=== PATIENT | male | born 1940 | race African-American/Black ===

== ENCOUNTER 2016-03-30 12:25 | Observation (INO) | payer OTHER ==
[2016-03-30 12:49] VITALS: BMI 24.4
[2016-03-30] MEDS ORDERED: ASPIRIN 81 MG CHEWABLE TABLETS PO ONE (12:53)
--- NOTE | 2016-03-30 12:54 | PDOC ---
History of Present Illness <Jazmin Arroyo - Last Filed: 03/30/16 14:48> - General History Source: Patient Exam Limitations: Dementia <Albino Kong - Last Filed: 03/30/16 16:56> - General Chief Complaint: Chest Pain Stated Complaint: CHEST PAIN Time Seen by Provider: 03/30/16 12:33 - History of Present Illness Initial Comments: 03/30/16 13:18 75y M hx of dementia, chf, dm, htn, hl, angina, presents with chets pain. The patient states that for the past several days, he has bfeen having CP upon awakening, described as sharp and burning, pt states he gets a med under his tongue and it typially improves. The pt denies any n/v, diahperssis, exertional worsening of his symptoms, sob, valentin, leg swelling. (LuannAlbino) Past History <Jazmin Arroyo - Last Filed: 03/30/16 14:48> - Past Medical History Anemia: No Asthma: No Cancer: No Cardiac Disorders: Yes (angina, PE) COPD: No CHF: Yes Dementia: Yes (per record harm to self or others) Diabetes: Yes GI Disorders: No Disorders: Yes (BPH) HTN: Yes Hypercholesterolemia: Yes Liver Disease: No Seizures: No Thyroid Disease: No - Surgical History Abdominal Surgery: Yes Cardiac Surgery: Yes (PPM) Lung Surgery: No Neurologic Surgery: No - Psycho/Social/Smoking Cessation Hx Anxiety: No Suicidal Ideation: No Smoking History: Former smoker Have you smoked in the past 12 months: No Information on smoking cessation initiated: No Hx Alcohol Use: No Drug/Substance Use Hx: No Substance Use Type: None Hx Substance Use Treatment: No <Albino Kong - Last Filed: 03/30/16 16:56> - Past Medical History Allergies/Adverse Reactions: Allergies Allergy/AdvReac Type Severity Reaction Status Date / Time acetaminophen Allergy Verified 02/24/16 03:45 oxycodone Allergy Verified 02/24/16 03:45 Lxilidz-Swu-Zhp Reductase Allergy Verified 02/24/16 03:45 Inhibitor Home Medications: Ambulatory Orders Apixaban [Eliquis -] 2.5 mg PO BID 12/09/15 Nitroglycerin 0.4 mg SL PRN 12/09/15 Ranolazine [Ranexa] 500 mg PO BID 12/09/15 Tamsulosin HCl 0.4 mg PO HS 12/09/15 Timolol 0.5% [Timoptic 0.5%] 1 drop OU BID 12/10/15 Atropine 1% Ophth. Solution - 1 drop OD HS ml 12/31/15 Clopidogrel Bisulfate [Plavix -] 75 mg PO DAILY tablet 12/31/15 Donepezil HCl [Aricept -] 5 mg PO HS tablet 12/31/15 Isosorbide Mononitrate [Imdur -] 30 mg PO DAILY #30 tab.sr.24h 12/31/15 Memantine HCl [Namenda -] 10 mg PO HS tablet 12/31/15 Metoprolol Succinate [Toprol XL -] 50 mg PO DAILY tab.sr.24h 12/31/15 Amlodipine Besylate [Norvasc -] 10 mg PO DAILY 02/24/16 Clonazepam [Klonopin -] 0.5 mg PO BID 02/24/16 Gabapentin [Neurontin] 300 mg PO BID 02/24/16 Cardiac Specific PMH - Complaint Specific PMHX Pacemaker: Yes <Albino Kong - Last Filed: 03/30/16 16:56> Review of Systems <Jazmin Arroyo - Last Filed: 03/30/16 14:48> - Review of Systems Able to Perform ROS?: Yes <Albino Kong - Last Filed: 03/30/16 16:56> - Review of Systems Comments:: 03/30/16 13:22 Constitutional - no reported Fever, Chills, weakness, HEENT: no reported vision changes, sore throat Respiratory: no reported cough, sob, hemoptysis Cardiac: +chest pain no reported , palpitations, light headedness, leg swelling Abd/GI: no reported abd pain, nausea, vomiting, blood per rectum, melena, diarrhea : no reported dysuria, frequency, discharge Musculskelatal - no reported back pain, joint swelling skin - no reported bruising, erythema, rash neurological: no reported headache, numbness, focal weakness, tingling, ataxia, weakness hematologic: no reported anemia, easy bruising, easy bleeding (Albino Kong) *Physical Exam <Jazmin Arroyo - Last Filed: 03/30/16 14:48> <Albino Kong - Last Filed: 03/30/16 16:56> - Vital Signs Last Vital Signs Temp Pulse Resp BP Pulse Ox 98.1 F 60 18 119/64 100 03/30/16 12:25 03/30/16 12:25 03/30/16 12:25 03/30/16 12:25 03/30/16 12:25 - Physical Exam Comments: 03/30/16 13:23 GENERAL: The patient is awake, alert, oriented x 1, Nontoxic - in no acute distress. HEAD: Normocephalic, atraumatic. EYES: extraocular movements intact, sclera anicteric, conjunctiva clear. ENT: Normal voice, Moist mucous membranes. NECK: Normal range of motion, supple LUNGS: Breath sounds equal, clear to auscultation bilaterally. No wheezes, no rhonchi, no rales. HEART: PM in the left chest, Regular rate and rhythm, normal S1 and S2 without murmur, rub or gallop. ABDOMEN: Soft, nontender, normoactive bowel sounds. No guarding, no rebound. EXTREMITIES: Normal range of motion, no edema. No clubbing or cyanosis. No cords, erythema, or tenderness. NEUROLOGICAL: No facial assymetry, Normal speech, PSYCH: Normal mood, normal affect. SKIN: Warm, Dry, normal turgor, (Albino Kong) Heart Score/ECG Review <Jazmin Arroyo - Last Filed: 03/30/16 14:48> <Albino Kong - Last Filed: 03/30/16 16:56> - ECG Impressions Comment:: 03/30/16 13:26 Twelve-lead EKG was performed and reviewed by me. There is normal sinus rhythm with a normal rate. atrial paced rhthm prolonged av conduction Left axis devation nonspecific intraventricular block no significant changes when compared w ek gdated 02/24/16 (Albino Kong) ED Treatment Course - LABORATORY CBC & Chemistry Diagram: 03/30/16 13:00 03/30/16 13:00 <Jazmin Arroyo - Last Filed: 03/30/16 14:48> - LABORATORY CBC & Chemistry Diagram: 03/30/16 13:00 03/30/16 13:00 <Albino Kong - Last Filed: 03/30/16 16:56> - ADDITIONAL ORDERS Additional order review: Laboratory Results 03/30/16 03/30/16 13:00 13:00 INR 1.37 H Sodium 140 Potassium 4.4 Chloride 105 Carbon Dioxide 28 Anion Gap 7 L BUN 19 H Creatinine 1.6 H Creat Clearance w eGFR 42.46 Random Glucose 132 H Calcium 8.9 Magnesium 2.2 Total Bilirubin 0.5 D AST 23 D ALT 18 Alkaline Phosphatase 69 Creatine Kinase 105 Troponin I 0.02 Total Protein 6.5 Albumin 3.4 03/30/16 13:00 RBC 4.58 MCV 90.4 MCHC 33.6 RDW 14.7 MPV 9.7 Neutrophils % 57.8 Lymphocytes % 22.2 Monocytes % 16.6 H Eosinophils % 2.7 Basophils % 0.7 - RADIOLOGY Radiology Studies Ordered: Category Date Time Status CHEST X-RAY PORTABLE* [RAD] Stat Radiology 03/30/16 12:53 Completed 03/30/16 14:48 No evidence pneumonia, CHF, pleural effusion, or pneumothorax. (Jazmin Arroyo) - Medications Given in the ED: ED Medications Discontinued Medications Generic Name Dose Route Start Last Admin Trade Name Freq PRN Reason Stop Dose Admin Aspirin 162 mg 03/30/16 12:53 03/30/16 13:10 Asa - PO 03/30/16 12:54 162 mg ONCE ONE Administration Medical Decision Making <Jazmin Arroyo - Last Filed: 03/30/16 14:48> <Albino Kong - Last Filed: 03/30/16 16:56> - Medical Decision Making 03/30/16 13:44 75y M hx o presents with chest pain, history may be liited due to his dementia no pain currenlty vitals normal no ekg changes when compared with prior ekg pt given asa cxr to r/o disease will r/o acs will d/w dr. hutchinson regarding disposition 03/30/16 16:54 trop negative pt asypmtomatic now discussed with dr. hutchinson requests admission for further management /observation for risk stratification of chest pain stable for tele Case discussed in detail with admitting physician including history, physical exam and ancillary studies. Admitting physician has assumed care for the patient, will follow all pending diagnostics and will complete the evaluation and treatment. (Albino Kong) *DC/Admit/Observation/Transfer <Jazmin Arroyo - Last Filed: 03/30/16 14:48> - Discharge Dispostion Admit: Yes <Albino Kong - Last Filed: 03/30/16 16:56> Diagnosis at time of Disposition: Dementia Qualifiers: Dementia type: unspecified type Dementia behavioral disturbance: without behavioral disturbance Qualified Code(s): F03.90 - Unspecified dementia without behavioral disturbance Chest pain Qualifiers: Chest pain type: unspecified Qualified Code(s): R07.9 - Chest pain, unspecified - Discharge Dispostion Condition at time of disposition: Stable
[2016-03-30] MEDS ORDERED: ASPIRIN 81 MG CHEWABLE TABLETS ONE (13:19)
[2016-03-30 13:50] LABS: BASOPHIL 0.7 % (0-2.0); EOSINOPHIL 2.7 % (0-4.5); MCH 30.4 pg (25.7-33.7); MCHC 33.6 g/dl (32.0-35.9); MEAN CELL VOLUME 90.4 fl (80-96); MEAN PLT VOLUME 9.7 fl (7.5-11.1); NEUTROPHILS 57.8 % (42.8-82.8); PLATELET COUNT 181 K/MM3 (134-434); RDW 14.7 % (11.9-15.9); WHITE BLOOD COUNT 6.1 K/mm3 (4.0-10.0)
[2016-03-30 14:27] LABS: INR 1.37 (0.82-1.09); PROTHROMBIN TIME (PATIENT) 15.2 SEC (9.98-11.88)
[2016-03-30 14:42] LABS: ALBUMIN 3.4 g/dl (3.4-5.0); BILIRUBIN,TOTAL 0.5 mg/dL (0.2-1.0); CALCIUM 8.9 mg/dL (8.5-10.1); CREATININE 1.6 mg/dL (0.7-1.3); MAGNESIUM 2.2 mg/dL (1.8-2.4); TOT PROT 6.5 g/dl (6.4-8.2)
[2016-03-30 14:47] LABS: TROPONIN I 0.02 ng/ml (0.00-0.05)
--- NOTE | 2016-03-30 16:39 | EKG ---
Test Reason : Blood Pressure : / mmHG Vent. Rate : 060 BPM Atrial Rate : 060 BPM P-R Int : 264 ms QRS Dur : 132 ms QT Int : 448 ms P-R-T Axes : 000 -57 047 degrees QTc Int : 448 ms Atrial-paced rhythm LEFT AXIS DEVIATION NON-SPECIFIC INTRA-VENTRICULAR CONDUCTION BLOCK CANNOT RULE OUT SEPTAL INFARCT , AGE UNDETERMINED ABNORMAL ECG WHEN COMPARED WITH ECG OF 24-FEB-2016 09:10, NONSPECIFIC T WAVE ABNORMALITY, WORSE IN LATERAL LEADS Confirmed by NAHOMY TORRES MD ([id number]) on 03/30/2016 4:38:40 PM Referred By: Confirmed By:NAHOMY TORRES MD
--- NOTE | 2016-03-31 00:40 | HP ---
Admitting History and Physical - Admission History of Present Illness: Pt is a 75 y/o male w/ a h/o dementia who was sent from SN[facility] for chest pain. This past summer pt underwent cardiac cath w/ stent placement ad has been on plavix. Pt also had admission in 03/10 for chest pain. Pt now presented to the ER bc of SSCP, nonradiating wc is relieved by SL NTG. Pt also makes note of the fact that he always has this chest pain upon awakening. 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 Cardiovascular: Yes: CAD, CHF, HTN, Hyperlipdemia, Other (PPM Cardiomyopathy) Gastrointestinal: Yes: GERD Renal/: Yes: Renal Failure, BPH Heme/Onc: Yes: Other (PE/DVT) Psych: Yes: Depression Musculoskeletal: Yes: Other (Peripheral neuropathy) Rheumatology: Yes: Other (Peripheral neuropathy) Endocrine: Yes: Diabetes Mellitus - Past Surgical History Past Surgical History: Yes: Permanent Pacemaker - Smoking History Smoking history: Former smoker Have you smoked in the past 12 months: No - Alcohol/Substance Use Hx Alcohol Use: No - Social History ADL: Support Services History of Recent Travel: No Home Medications - Allergies Allergies/Adverse Reactions: Allergies Allergy/AdvReac Type Severity Reaction Status Date / Time acetaminophen Allergy Verified 02/24/16 03:45 oxycodone Allergy Verified 02/24/16 03:45 Ujxzwtr-Zrf-Wpr Reductase Allergy Verified 02/24/16 03:45 Inhibitor - Home Medications Home Medications: Ambulatory Orders Apixaban [Eliquis -] 2.5 mg PO BID 12/09/15 Nitroglycerin 0.4 mg SL PRN 12/09/15 Ranolazine [Ranexa] 500 mg PO BID 12/09/15 Tamsulosin HCl 0.4 mg PO HS 12/09/15 Timolol 0.5% [Timoptic 0.5%] 1 drop OU BID 12/10/15 Atropine 1% Ophth. Solution - 1 drop OD HS ml 12/31/15 Clopidogrel Bisulfate [Plavix -] 75 mg PO DAILY tablet 12/31/15 Donepezil HCl [Aricept -] 5 mg PO HS tablet 12/31/15 Isosorbide Mononitrate [Imdur -] 30 mg PO DAILY #30 tab.sr.24h 12/31/15 Memantine HCl [Namenda -] 10 mg PO HS tablet 12/31/15 Metoprolol Succinate [Toprol XL -] 50 mg PO DAILY tab.sr.24h 12/31/15 Amlodipine Besylate [Norvasc -] 10 mg PO DAILY 02/24/16 Clonazepam [Klonopin -] 0.5 mg PO BID 02/24/16 Gabapentin [Neurontin] 300 mg PO BID 02/24/16 Family Disease History - Family Disease History Family History: Unable to Obtain Review of Systems Unable to obtain ROS, reason: Dementia Physical Examination Vital Signs: Vital Signs Temperature 97.2 F L 03/30/16 21:00 Pulse Rate 61 03/30/16 21:00 Respiratory Rate 18 03/30/16 21:00 Blood Pressure 118/47 03/30/16 21:00 O2 Sat by Pulse Oximetry (%) 99 03/30/16 21:00 Constitutional: Yes: Well Nourished Neck: Yes: Supple Cardiovascular: Yes: WNL, Regular Rate and Rhythm Respiratory: Yes: WNL, Regular, CTA Bilaterally Gastrointestinal: Yes: WNL, Normal Bowel Sounds, Soft Musculoskeletal: Yes: WNL Extremities: Yes: WNL Edema: No Neurological: Yes: WNL, Alert, Other (Nonfocal) Problem List - Problems (1) Chest pain Assessment/Plan: Pt has h/o cardiac cath w/ stent placement Tele Serial cpk/troponin to r/o ACS As per cardio Cont plavix (Pt is on eliquis due to h/o DVT/PE) Code(s): R07.9 - CHEST PAIN, UNSPECIFIED Qualifiers: Chest pain type: unspecified Qualified Code(s): R07.9 - Chest pain, unspecified (2) HTN (hypertension) Assessment/Plan: BP stable Cont norvasc Code(s): I10 - ESSENTIAL (PRIMARY) HYPERTENSION (3) CAD (coronary artery disease) Assessment/Plan: Cont plavix Code(s): I25.10 - ATHSCL HEART DISEASE OF [place] CORONARY ARTERY W/O ANG PCTRS (4) BPH (benign prostatic hyperplasia) Assessment/Plan: Cont flomax Code(s): N40.0 - BENIGN PROSTATIC HYPERPLASIA WITHOUT LOWER URINRY TRACT SYMP (5) CHF (congestive heart failure) Code(s): I50.9 - HEART FAILURE, UNSPECIFIED (6) Diabetes mellitus type 2 in nonobese Code(s): E11.9 - TYPE 2 DIABETES MELLITUS WITHOUT COMPLICATIONS (7) HLD (hyperlipidemia) Code(s): E78.5 - HYPERLIPIDEMIA, UNSPECIFIED (8) Dementia Assessment/Plan: Cont namenda/aricept Code(s): F03.90 - UNSPECIFIED DEMENTIA WITHOUT BEHAVIORAL DISTURBANCE Qualifiers: Dementia type: unspecified type Dementia behavioral disturbance: without behavioral disturbance Qualified Code(s): F03.90 - Unspecified dementia without behavioral disturbance
[2016-03-31 01:36] LABS: TROPONIN I 0.02 ng/ml (0.00-0.05)
[2016-03-31 08:27] LABS: BASOPHIL 0.6 % (0-2.0); EOSINOPHIL 2.8 % (0-4.5); MCHC 33.8 g/dl (32.0-35.9); MEAN CELL VOLUME 91.6 fl (80-96); MEAN PLT VOLUME 9.6 fl (7.5-11.1); NEUTROPHILS 52.3 % (42.8-82.8); PLATELET COUNT 174 K/MM3 (134-434); RDW 15.4 % (11.9-15.9); WHITE BLOOD COUNT 4.9 K/mm3 (4.0-10.0)
[2016-03-31 08:55] LABS: TROPONIN I 0.02 ng/ml (0.00-0.05)
[2016-03-31 08:57] LABS: ALBUMIN 3.2 g/dl (3.4-5.0); BILIRUBIN,TOTAL 0.3 mg/dL (0.2-1.0); CALCIUM 8.7 mg/dL (8.5-10.1); CREATININE 1.7 mg/dL (0.7-1.3); TOT PROT 6.1 g/dl (6.4-8.2)
--- NOTE | 2016-03-31 09:11 | PN ---
Progress Note, Physician Chief Complaint: known to our service from multiple prior admission: 75 year old man with a history of HTN, HLD, DM II, CAD with recent cardiac cath 11/04/15 showing (LM normal, pLAD patent prior stent, mLAD 30%, LCx mild, OM1 80% stenosis, pRCA 30%, dRCA 30%, RPL1 95% stenosis, LVEDP 18mmHg). He underwent PCI with stent (reported BMS) of OM1 with successful revascularization., known cardiomyopathy, Echo done 10/19/15 showed diffuse hypokinesis of LV with visual EF approx 35-40%, LVH, mild MR. 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 History non-compliance with our recommendations. Returns from assisted again with substernal chest pain, poorly described. Central, non-radiating. No N/V or diaphoresis, denies SOB. Denies palps. - Current Medication List Current Medications: Active Medications Amlodipine Besylate (Norvasc -) 10 mg PO DAILY [facility] Apixaban (Eliquis -) 2.5 mg PO BID [facility] Atropine Sulfate (Atropine 1% Ophth. Solution -) 1 drop OD HS [facility] Clonazepam (Klonopin -) 0.5 mg PO BID [facility] Clopidogrel Bisulfate (Plavix -) 75 mg PO DAILY [facility] Donepezil HCl (Aricept -) 5 mg PO HS [facility] Gabapentin (Neurontin -) 300 mg PO BID [facility] Isosorbide Mononitrate (Imdur -) 30 mg PO DAILY [facility] Memantine (Namenda -) 10 mg PO HS [facility] Metoprolol Succinate (Toprol Xl -) 50 mg PO DAILY [facility] Ranolazine (Ranexa -) 500 mg PO BID [facility] Tamsulosin HCl (Flomax -) 0.4 mg PO HS [facility] Timolol Maleate (Timoptic 0.5%) 1 drop OU BID [facility] - Objective Vital Signs: Vital Signs Temperature 97.5 F L 03/31/16 06:00 Pulse Rate 70 03/31/16 06:00 Respiratory Rate 18 03/31/16 06:00 Blood Pressure 118/53 03/31/16 06:00 O2 Sat by Pulse Oximetry (%) 99 03/31/16 06:00 Constitutional: Yes: No Distress, Calm Eyes: Yes: Conjunctiva Clear Cardiovascular: Yes: Regular Rate and Rhythm Respiratory: Yes: CTA Bilaterally (no rales or wheezing) Gastrointestinal: Yes: Soft (non-tender) Edema: No Neurological: Yes: Alert Labs: CBC, BMP 03/31/16 06:05 03/31/16 06:05 INR, PTT INR 1.37 (0.82-1.09) H 03/30/16 13:00 Laboratory Tests 03/30/16 03/31/16 03/31/16 13:00 00:55 06:05 WBC 4.9 Plt Count 174 Sodium 140 Potassium 4.4 BUN 19 H Creatinine 1.6 H Creatine Kinase 105 53 Troponin I 0.02 0.02 03/31/16 03/31/16 06:05 06:05 WBC Plt Count Sodium 136 Potassium 4.1 BUN 24 H D Creatinine 1.7 H Creatine Kinase 57 Troponin I 0.02 - ....Imaging Cat Scan: Report Reviewed Ultrasound: Report Reviewed, Other (no infiltrate or effusion) EKG: Image Reviewed (Apaced, LEft axis, cannot rule out old septal MN TELE: A- paced) Assessment/Plan 1) Chest pain Code(s): R07.9 - CHEST PAIN, UNSPECIFIED (2) CAD (coronary artery disease) Code(s): I25.10 - ATHSCL HEART DISEASE OF [place] CORONARY ARTERY W/O ANG PCTRS (3) Diabetes mellitus type 2 in nonobese Code(s): E11.9 - TYPE 2 DIABETES MELLITUS WITHOUT COMPLICATIONS (4) HLD (hyperlipidemia) Code(s): E78.5 - HYPERLIPIDEMIA, UNSPECIFIED (5) HTN (hypertension) Code(s): I10 - ESSENTIAL (PRIMARY) HYPERTENSION (6) History of permanent cardiac pacemaker placement Code(s): Z95.0 - PRESENCE OF CARDIAC PACEMAKER (7) History of stroke Code(s): Z86.73 - PRSNL HX OF TIA (TIA), AND CEREB INFRC W/O RESID DEFICITS (8) Acute on chronic systolic CHF (congestive heart failure), NYHA class 3 Code(s): I50.23 - ACUTE ON CHRONIC SYSTOLIC (CONGESTIVE) HEART FAILURE Assessment/Plan 75 year old man with a history of HTN, HLD, DM II, CAD with recent cardiac cath 11/04/15 showing (LM normal, pLAD patent prior stent, mLAD 30%, LCx mild, OM1 80% stenosis, pRCA 30%, dRCA 30%, RPL1 95% stenosis, LVEDP 18mmHg). He underwent PCI with stent (reported BMS) of OM1 with successful revascularization., known cardiomyopathy, Echo done 10/19/15 showed diffuse hypokinesis of LV with visual EF approx 35-40%, LVH, mild MR. 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 Chest pain-with known CAD and recent PCI as above -cardiac enzymes negative x3, no acute ST changes on ECG. -hold statin for allergy -cont with Plavix 75mg and eliquis 2.5mg bid as he is >1month post PCI with BMS -cont Imdur 30mg daily. Ranexa Cardiomyopathy-mixed non-ischemic and ischemic with moderate to severe LV systolic dysfunction, current mild acute on chronic systolic CHF -euvolemic -cont toprol -Needs close outpatient follow up Recurrent DVT/PE's -cont eliquis
[2016-03-31] MEDS: RANOLAZINE E.R. 500 MG TABLET (FP) PO SCH ×2 (09:26→21:37)
[2016-03-31] MEDS: APIXABAN 2.5 MG TABLET PO SCH ×2 (09:26→21:36)
[2016-03-31] MEDS: amLODIPine BESYLATE 5 MG TABLET (FP) PO SCH (09:26)
[2016-03-31] MEDS: clonazePAM 0.5 MG TABLET PO SCH ×2 (09:26→21:37)
[2016-03-31] MEDS: GABAPENTIN 300 MG CAPSULE (FP) PO SCH ×2 (09:26→21:37)
[2016-03-31] MEDS: METOPROLOL SUCCINATE 50 MG TAB.SR.24H (FP) PO SCH (09:26)
[2016-03-31] MEDS: CLOPIDOGREL BISULFATE 75 MG TABLET (FP) PO SCH (09:27)
[2016-03-31] MEDS: ISOSORBIDE MONONITRATE 30 MG TAB.SR.24H (FP) PO SCH (09:30)
[2016-03-31] MEDS: TIMOLOL 0.5% OPHTHALMIC SOL 5 ML BOTTLE OU SCH ×2 (09:37→21:37)
[2016-03-31] MEDS: ATROPINE SO4 1% OPHTH SOLN 5 ML BOTTLE OD SCH (21:36)
[2016-03-31] MEDS: TAMSULOSIN HCL 0.4 MG CAP.ER.24H (FP) PO SCH (21:36)
[2016-03-31] MEDS: DONEPEZIL HCL 5 MG TABLET (FP) PO SCH (21:36)
[2016-03-31] MEDS: MEMANTINE HCL 10 MG TABLET (FP) PO SCH (21:37)
--- NOTE | 2016-04-01 09:44 | PN ---
Progress Note, Physician - Current Medication List Current Medications: Active Medications Amlodipine Besylate (Norvasc -) 10 mg PO DAILY [facility] Last Admin: 03/31/16 09:26 Dose: 10 mg Apixaban (Eliquis -) 2.5 mg PO BID [facility] Last Admin: 03/31/16 21:36 Dose: 2.5 mg Atropine Sulfate (Atropine 1% Ophth. Solution -) 1 drop OD HS [facility] Last Admin: 03/31/16 21:36 Dose: 1 drp Clonazepam (Klonopin -) 0.5 mg PO BID [facility] Last Admin: 03/31/16 21:37 Dose: 0.5 mg Clopidogrel Bisulfate (Plavix -) 75 mg PO DAILY [facility] Last Admin: 03/31/16 09:27 Dose: 75 mg Donepezil HCl (Aricept -) 5 mg PO HS [facility] Last Admin: 03/31/16 21:36 Dose: 5 mg Gabapentin (Neurontin -) 300 mg PO BID [facility] Last Admin: 03/31/16 21:37 Dose: 300 mg Isosorbide Mononitrate (Imdur -) 30 mg PO DAILY [facility] Last Admin: 03/31/16 09:30 Dose: 30 mg Memantine (Namenda -) 10 mg PO [facility] Last Admin: 03/31/16 21:37 Dose: 10 mg Metoprolol Succinate (Toprol Xl -) 50 mg PO DAILY [facility] Last Admin: 03/31/16 09:26 Dose: 50 mg Ranolazine (Ranexa -) 500 mg PO BID [facility] Last Admin: 03/31/16 21:37 Dose: 500 mg Tamsulosin HCl (Flomax -) 0.4 mg PO [facility] Last Admin: 03/31/16 21:36 Dose: 0.4 mg Timolol Maleate (Timoptic 0.5%) 1 drop OU BID [facility] Last Admin: 03/31/16 21:37 Dose: 1 drop - Objective Vital Signs: Vital Signs Temperature 98.1 F 04/01/16 06:00 Pulse Rate 60 04/01/16 06:00 Respiratory Rate 20 04/01/16 06:00 Blood Pressure 152/69 04/01/16 06:00 O2 Sat by Pulse Oximetry (%) 99 03/31/16 21:00 Eyes: Yes: WNL, Conjunctiva Clear, EOM Intact HENT: Yes: WNL, Atraumatic, Normocephalic Neck: Yes: WNL, Supple, Trachea Midline Cardiovascular: Yes: WNL, Regular Rate and Rhythm Respiratory: Yes: WNL, Regular, CTA Bilaterally Gastrointestinal: Yes: WNL, Normal Bowel Sounds Genitourinary: Yes: WNL Musculoskeletal: Yes: WNL Extremities: Yes: WNL Edema: No Integumentary: Yes: WNL Neurological: Yes: WNL, Alert, Oriented ...Motor Strength: WNL Psychiatric: Yes: WNL Labs: CBC, BMP 03/31/16 06:05 03/31/16 06:05 INR, PTT INR 1.37 (0.82-1.09) H 03/30/16 13:00 Assessment/Plan 75 year old man with a history of HTN, HLD, DM II, CAD with recent cardiac cath 11/04/15 showing (LM normal, pLAD patent prior stent, mLAD 30%, LCx mild, OM1 80% stenosis, pRCA 30%, dRCA 30%, RPL1 95% stenosis, LVEDP 18mmHg). He underwent PCI with stent (reported BMS) of OM1 with successful revascularization., known cardiomyopathy, Echo done 10/19/15 showed diffuse hypokinesis of LV with visual EF approx 35-40%, LVH, mild MR. 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 for c/o chest pain. Chest pain-with known CAD and recent PCI as above -cardiac enzymes negative x3, no acute ST changes on ECG. -hold statin for allergy -cont with Plavix 75mg and eliquis 2.5mg bid as he is >1month post PCI with BMS -cont Imdur 30mg daily. Ranexa Cardiomyopathy-mixed non-ischemic and ischemic with moderate to severe LV systolic dysfunction, current mild acute on chronic systolic CHF -euvolemic -cont toprol -Needs close outpatient follow up Recurrent DVT/PE's -cont eliquis
[2016-04-01] MEDS: RANOLAZINE E.R. 500 MG TABLET (FP) PO SCH ×2 (10:12→21:45)
[2016-04-01] MEDS: METOPROLOL SUCCINATE 50 MG TAB.SR.24H (FP) PO SCH (10:12)
[2016-04-01] MEDS: amLODIPine BESYLATE 5 MG TABLET (FP) PO SCH (10:12)
[2016-04-01] MEDS: GABAPENTIN 300 MG CAPSULE (FP) PO SCH ×3 (10:12→21:45)
[2016-04-01] MEDS: CLOPIDOGREL BISULFATE 75 MG TABLET (FP) PO SCH ×2 (10:12→10:23)
[2016-04-01] MEDS: APIXABAN 2.5 MG TABLET PO SCH ×2 (10:12→21:45)
[2016-04-01] MEDS: clonazePAM 0.5 MG TABLET PO SCH ×2 (10:12→21:45)
[2016-04-01] MEDS: ISOSORBIDE MONONITRATE 30 MG TAB.SR.24H (FP) PO SCH ×2 (10:12→10:23)
[2016-04-01] MEDS: TIMOLOL 0.5% OPHTHALMIC SOL 5 ML BOTTLE OU SCH ×2 (10:13→21:47)
[2016-04-01] MEDS ORDERED: NITROGLYCERIN SUBLINGUAL 1/150 0.4 MG TAB ONE (21:13)
[2016-04-01] MEDS: DONEPEZIL HCL 5 MG TABLET (FP) PO SCH (21:45)
[2016-04-01] MEDS: TAMSULOSIN HCL 0.4 MG CAP.ER.24H (FP) PO SCH (21:45)
[2016-04-01] MEDS: MEMANTINE HCL 10 MG TABLET (FP) PO SCH (21:45)
[2016-04-01] MEDS: ATROPINE SO4 1% OPHTH SOLN 5 ML BOTTLE OD SCH (21:47)
--- NOTE | 2016-04-01 22:44 | PN ---
Progress Note, Physician History of Present Illness: No new complaint - Current Medication List Current Medications: Active Medications Amlodipine Besylate (Norvasc -) 10 mg PO DAILY [facility] Last Admin: 04/01/16 10:12 Dose: 10 mg Apixaban (Eliquis -) 2.5 mg PO BID [facility] Last Admin: 04/01/16 21:45 Dose: 2.5 mg Atropine Sulfate (Atropine 1% Ophth. Solution -) 1 drop OD [facility] Last Admin: 04/01/16 21:47 Dose: 1 drp Clonazepam (Klonopin -) 0.5 mg PO BID [facility] Last Admin: 04/01/16 21:45 Dose: 0.5 mg Clopidogrel Bisulfate (Plavix -) 75 mg PO DAILY [facility] Last Admin: 04/01/16 10:23 Dose: Not Given Donepezil HCl (Aricept -) 5 mg PO [facility] Last Admin: 04/01/16 21:45 Dose: 5 mg Gabapentin (Neurontin -) 300 mg PO BID [facility] Last Admin: 04/01/16 21:45 Dose: 300 mg Isosorbide Mononitrate (Imdur -) 30 mg PO DAILY [facility] Last Admin: 04/01/16 10:23 Dose: Not Given Memantine (Namenda -) 10 mg PO [facility] Last Admin: 04/01/16 21:45 Dose: 10 mg Metoprolol Succinate (Toprol Xl -) 50 mg PO DAILY [facility] Last Admin: 04/01/16 10:12 Dose: 50 mg Ranolazine (Ranexa -) 500 mg PO BID [facility] Last Admin: 04/01/16 21:45 Dose: 500 mg Tamsulosin HCl (Flomax -) 0.4 mg PO [facility] Last Admin: 04/01/16 21:45 Dose: 0.4 mg Timolol Maleate (Timoptic 0.5%) 1 drop OU BID [facility] Last Admin: 04/01/16 21:47 Dose: 1 drop - Objective Vital Signs: Vital Signs Temperature 98.5 F 04/01/16 18:21 Pulse Rate 60 04/01/16 18:21 Respiratory Rate 22 04/01/16 18:21 Blood Pressure 131/56 04/01/16 18:21 O2 Sat by Pulse Oximetry (%) 98 04/01/16 09:00 Constitutional: Yes: Well Nourished Neck: Yes: Supple Cardiovascular: Yes: WNL, Regular Rate and Rhythm Respiratory: Yes: WNL, Regular, CTA Bilaterally Gastrointestinal: Yes: WNL, Normal Bowel Sounds, Soft Extremities: Yes: WNL Edema: No Labs: CBC, BMP 03/31/16 06:05 03/31/16 06:05 INR, PTT INR 1.37 (0.82-1.09) H 03/30/16 13:00 Problem List - Problems (1) Chest pain Code(s): R07.9 - CHEST PAIN, UNSPECIFIED Qualifiers: Chest pain type: unspecified Qualified Code(s): R07.9 - Chest pain, unspecified (2) Dementia Code(s): F03.90 - UNSPECIFIED DEMENTIA WITHOUT BEHAVIORAL DISTURBANCE Qualifiers: Dementia type: unspecified type Dementia behavioral disturbance: without behavioral disturbance Qualified Code(s): F03.90 - Unspecified dementia without behavioral disturbance (3) BPH (benign prostatic hyperplasia) Code(s): N40.0 - BENIGN PROSTATIC HYPERPLASIA WITHOUT LOWER URINRY TRACT SYMP (4) CAD (coronary artery disease) Code(s): I25.10 - ATHSCL HEART DISEASE OF [place] CORONARY ARTERY W/O ANG PCTRS (5) GERD (gastroesophageal reflux disease) Code(s): K21.9 - GASTRO-ESOPHAGEAL REFLUX DISEASE WITHOUT ESOPHAGITIS (6) HTN (hypertension) Code(s): I10 - ESSENTIAL (PRIMARY) HYPERTENSION
--- NOTE | 2016-04-01 23:14 | HOSP ---
Addendum entered and electronically signed by Dolly Mckeon RES 04/01/16 23: 16: repeat trop wnl Original Note: Subjective - Review of Symptoms Events since last encounter: chest pain Subjective: patient complainin gof chest pain that is more severe and in a different location than the pain he was admitted with. It is mid sternal, nonradiating, 6/ 10, exacerbated with deep inspiration and reproduced by pressing on the sternum. he denies sob, palpitations, lightheadedness, diaphoresis, n/v or abdominal pain General: No: Malaise HEENT: No: Head Aches Pulmonary: Yes: Pleuritic Chest Pain. No: Dyspnea, Cough Cardiovascular: Yes: Chest Pain (reproducible). No: Palpitations, Orthopnea, Edema, Light Headedness Gastrointestinal: No: Nausea, Vomiting, Abdominal Pain Musculoskeletal: No: Back Pain Physical Examination Vital Signs: Vital Signs Temperature 98.5 F 04/01/16 18:21 Pulse Rate 60 04/01/16 18:21 Respiratory Rate 22 04/01/16 18:21 Blood Pressure 131/56 04/01/16 18:21 O2 Sat by Pulse Oximetry (%) 98 04/01/16 09:00 Constitutional: Yes: Well Nourished, No Distress, Anxious. No: Diaphoresis Eyes: Yes: EOM Intact, PERRL HENT: Yes: Atraumatic, Normocephalic Neck: Yes: Supple Cardiovascular: Yes: Regular Rate and Rhythm, S1, S2 Respiratory: Yes: CTA Bilaterally Gastrointestinal: Yes: Normal Bowel Sounds, Soft Musculoskeletal: Yes: Other (reproducible sternal pain) Extremities: Yes: Other (no edema) Peripheral Pulses: Left Radial: 2+, Right Radial: 2+ Labs: CBC, BMP 03/31/16 06:05 03/31/16 06:05 Hospitalist Encounter Assessment: reproducible chest pain, likely musculoskeletal -admitted for chest pain with 3 negative troponins and negative cxr -recent cardiac pci -hx dementia -repeat cxr unchanged, no sign of ACS -check troponin -administrative support technician notified Visit type - Emergency Visit Emergency Visit: No - New Patient This patient is new to me today: Yes Date on this admission: 04/01/16 - Critical Care Critical Care patient: No
--- NOTE | 2016-04-02 09:22 | PN ---
Progress Note, Physician Chief Complaint: atypical cp constant/reproducible - Current Medication List Current Medications: Active Medications Amlodipine Besylate (Norvasc -) 10 mg PO DAILY [facility] Last Admin: 04/01/16 10:12 Dose: 10 mg Apixaban (Eliquis -) 2.5 mg PO BID [facility] Last Admin: 04/01/16 21:45 Dose: 2.5 mg Atropine Sulfate (Atropine 1% Ophth. Solution -) 1 drop OD HS [facility] Last Admin: 04/01/16 21:47 Dose: 1 drp Clonazepam (Klonopin -) 0.5 mg PO BID [facility] Last Admin: 04/01/16 21:45 Dose: 0.5 mg Clopidogrel Bisulfate (Plavix -) 75 mg PO DAILY [facility] Last Admin: 04/01/16 10:23 Dose: Not Given Donepezil HCl (Aricept -) 5 mg PO [facility] Last Admin: 04/01/16 21:45 Dose: 5 mg Gabapentin (Neurontin -) 300 mg PO BID [facility] Last Admin: 04/01/16 21:45 Dose: 300 mg Isosorbide Mononitrate (Imdur -) 30 mg PO DAILY [facility] Last Admin: 04/01/16 10:23 Dose: Not Given Memantine (Namenda -) 10 mg PO [facility] Last Admin: 04/01/16 21:45 Dose: 10 mg Metoprolol Succinate (Toprol Xl -) 50 mg PO DAILY [facility] Last Admin: 04/01/16 10:12 Dose: 50 mg Ranolazine (Ranexa -) 500 mg PO BID [facility] Last Admin: 04/01/16 21:45 Dose: 500 mg Tamsulosin HCl (Flomax -) 0.4 mg PO [facility] Last Admin: 04/01/16 21:45 Dose: 0.4 mg Timolol Maleate (Timoptic 0.5%) 1 drop OU BID [facility] Last Admin: 04/01/16 21:47 Dose: 1 drop - Objective Vital Signs: Vital Signs Temperature 98.1 F 04/02/16 06:00 Pulse Rate 60 04/02/16 06:00 Respiratory Rate 16 04/02/16 06:00 Blood Pressure 142/71 04/02/16 06:00 O2 Sat by Pulse Oximetry (%) 98 04/01/16 21:00 Eyes: Yes: WNL, Conjunctiva Clear, EOM Intact HENT: Yes: WNL, Atraumatic, Normocephalic Neck: Yes: WNL, Supple, Trachea Midline Cardiovascular: Yes: WNL, Regular Rate and Rhythm Respiratory: Yes: WNL, Regular, CTA Bilaterally Gastrointestinal: Yes: WNL, Normal Bowel Sounds Genitourinary: Yes: WNL Musculoskeletal: Yes: WNL Extremities: Yes: WNL Edema: No Integumentary: Yes: WNL Neurological: Yes: WNL, Alert, Oriented ...Motor Strength: WNL Psychiatric: Yes: WNL Labs: CBC, BMP 03/31/16 06:05 03/31/16 06:05 INR, PTT INR 1.37 (0.82-1.09) H 03/30/16 13:00 Assessment/Plan 75 year old man with a history of HTN, HLD, DM II, CAD with recent cardiac cath 11/04/15 showing (LM normal, pLAD patent prior stent, mLAD 30%, LCx mild, OM1 80% stenosis, pRCA 30%, dRCA 30%, RPL1 95% stenosis, LVEDP 18mmHg). He underwent PCI with stent (reported BMS) of OM1 with successful revascularization., known cardiomyopathy, Echo done 10/19/15 showed diffuse hypokinesis of LV with visual EF approx 35-40%, LVH, mild MR. 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 Chest pain atypical - cont medical rx -with known CAD and recent PCI as above -cardiac enzymes negative x3, no acute ST changes on ECG. -hold statin for allergy -cont with Plavix 75mg and eliquis 2.5mg bid as he is >1month post PCI with BMS -cont Imdur 30mg daily. Ranexa Cardiomyopathy-mixed non-ischemic and ischemic with moderate to severe LV systolic dysfunction, current mild acute on chronic systolic CHF -euvolemic -cont toprol -Needs close outpatient follow up Recurrent DVT/PE's -cont eliquis
--- NOTE | 2016-04-02 11:24 | EKG ---
Test Reason : Blood Pressure : / mmHG Vent. Rate : 060 BPM Atrial Rate : 060 BPM P-R Int : 278 ms QRS Dur : 136 ms QT Int : 442 ms P-R-T Axes : -29 -54 009 degrees QTc Int : 442 ms Atrial-paced rhythm LEFT AXIS DEVIATION NON-SPECIFIC INTRA-VENTRICULAR CONDUCTION BLOCK POSSIBLE LATERAL INFARCT , AGE UNDETERMINED ABNORMAL ECG WHEN COMPARED WITH ECG OF 30-MAR-2016 12:42, NO SIGNIFICANT CHANGE WAS FOUND Confirmed by NAHOMY TORRES MD ([id number]) on 04/02/2016 11:24:22 AM Referred By: Confirmed By:NAHOMY TORRES MD
[2016-04-02] MEDS: APIXABAN 2.5 MG TABLET PO SCH ×2 (12:41→21:36)
[2016-04-02] MEDS: ISOSORBIDE MONONITRATE 30 MG TAB.SR.24H (FP) PO SCH (12:41)
[2016-04-02] MEDS: CLOPIDOGREL BISULFATE 75 MG TABLET (FP) PO SCH (12:42)
[2016-04-02] MEDS: METOPROLOL SUCCINATE 50 MG TAB.SR.24H (FP) PO SCH (12:42)
[2016-04-02] MEDS: GABAPENTIN 300 MG CAPSULE (FP) PO SCH ×2 (12:42→21:36)
[2016-04-02] MEDS: clonazePAM 0.5 MG TABLET PO SCH ×2 (12:42→21:36)
[2016-04-02] MEDS: RANOLAZINE E.R. 500 MG TABLET (FP) PO SCH ×2 (12:43→21:37)
[2016-04-02] MEDS: amLODIPine BESYLATE 5 MG TABLET (FP) PO SCH (12:43)
[2016-04-02] MEDS: TIMOLOL 0.5% OPHTHALMIC SOL 5 ML BOTTLE OU SCH ×2 (12:43→21:37)
--- NOTE | 2016-04-02 20:48 | PN ---
Progress Note, Physician History of Present Illness: Events of last pm noted Pt had chest pain wc has subsided - Current Medication List Current Medications: Active Medications Amlodipine Besylate (Norvasc -) 10 mg PO DAILY [facility] Last Admin: 04/02/16 12:43 Dose: 10 mg Apixaban (Eliquis -) 2.5 mg PO BID [facility] Last Admin: 04/02/16 12:41 Dose: 2.5 mg Atropine Sulfate (Atropine 1% Ophth. Solution -) 1 drop OD [facility] Last Admin: 04/01/16 21:47 Dose: 1 drp Clonazepam (Klonopin -) 0.5 mg PO BID [facility] Last Admin: 04/02/16 12:42 Dose: 0.5 mg Clopidogrel Bisulfate (Plavix -) 75 mg PO DAILY [facility] Last Admin: 04/02/16 12:42 Dose: 75 mg Donepezil HCl (Aricept -) 5 mg PO [facility] Last Admin: 04/01/16 21:45 Dose: 5 mg Gabapentin (Neurontin -) 300 mg PO BID [facility] Last Admin: 04/02/16 12:42 Dose: 300 mg Isosorbide Mononitrate (Imdur -) 30 mg PO DAILY [facility] Last Admin: 04/02/16 12:41 Dose: 30 mg Memantine (Namenda -) 10 mg PO [facility] Last Admin: 04/01/16 21:45 Dose: 10 mg Metoprolol Succinate (Toprol Xl -) 50 mg PO DAILY [facility] Last Admin: 04/02/16 12:42 Dose: 50 mg Ranolazine (Ranexa -) 500 mg PO BID [facility] Last Admin: 04/02/16 12:43 Dose: 500 mg Tamsulosin HCl (Flomax -) 0.4 mg PO [facility] Last Admin: 04/01/16 21:45 Dose: 0.4 mg Timolol Maleate (Timoptic 0.5%) 1 drop OU BID [facility] Last Admin: 04/02/16 12:43 Dose: 1 drop - Objective Vital Signs: Vital Signs Temperature 98.5 F 04/02/16 19:11 Pulse Rate 61 04/02/16 16:47 Respiratory Rate 20 04/02/16 16:47 Blood Pressure 115/51 04/02/16 16:47 O2 Sat by Pulse Oximetry (%) 97 04/02/16 09:00 Constitutional: Yes: Well Nourished Neck: Yes: Supple Cardiovascular: Yes: WNL, Regular Rate and Rhythm Respiratory: Yes: WNL, Regular, CTA Bilaterally Gastrointestinal: Yes: WNL, Normal Bowel Sounds, Soft Musculoskeletal: Yes: WNL Edema: No Labs: CBC, BMP 03/31/16 06:05 03/31/16 06:05 INR, PTT INR 1.37 (0.82-1.09) H 03/30/16 13:00 Problem List - Problems (1) Chest pain Assessment/Plan: DC planning to SNF in am Pt has h/o cardiac cath w/ stent placement Cont plavix (Pt is on eliquis due to h/o DVT/PE) Will add protonix to meds for ?GERD wc could be attributing to atypical chest pain Code(s): R07.9 - CHEST PAIN, UNSPECIFIED Qualifiers: Qualified Code(s): R07.9 - Chest pain, unspecified (2) HTN (hypertension) Assessment/Plan: BP stable Cont norvasc/metoprolol/imdur Code(s): I10 - ESSENTIAL (PRIMARY) HYPERTENSION (3) GERD (gastroesophageal reflux disease) Assessment/Plan: Start protonix Code(s): K21.9 - GASTRO-ESOPHAGEAL REFLUX DISEASE WITHOUT ESOPHAGITIS (4) BPH (benign prostatic hyperplasia) Assessment/Plan: Cont flomax Code(s): N40.0 - BENIGN PROSTATIC HYPERPLASIA WITHOUT LOWER URINRY TRACT SYMP (5) CAD (coronary artery disease) Assessment/Plan: Cont plavix Code(s): I25.10 - ATHSCL HEART DISEASE OF [place] CORONARY ARTERY W/O ANG PCTRS (6) Dementia Code(s): F03.90 - UNSPECIFIED DEMENTIA WITHOUT BEHAVIORAL DISTURBANCE Qualifiers: Qualified Code(s): F03.90 - Unspecified dementia without behavioral disturbance
[2016-04-02] MEDS: DONEPEZIL HCL 5 MG TABLET (FP) PO SCH (21:36)
[2016-04-02] MEDS: TAMSULOSIN HCL 0.4 MG CAP.ER.24H (FP) PO SCH (21:36)
[2016-04-02] MEDS: MEMANTINE HCL 10 MG TABLET (FP) PO SCH (21:36)
[2016-04-02] MEDS: ATROPINE SO4 1% OPHTH SOLN 5 ML BOTTLE OD SCH (21:37)
[2016-04-03 03:02] VITALS: PULSE 60
[2016-04-03 09:17] VITALS: BP 144/78; TEMP 98.2
[2016-04-03] MEDS: APIXABAN 2.5 MG TABLET PO SCH (09:17)
[2016-04-03] MEDS: RANOLAZINE E.R. 500 MG TABLET (FP) PO SCH (09:17)
[2016-04-03] MEDS: METOPROLOL SUCCINATE 50 MG TAB.SR.24H (FP) PO SCH (09:18)
[2016-04-03] MEDS: amLODIPine BESYLATE 5 MG TABLET (FP) PO SCH (09:18)
[2016-04-03] MEDS: CLOPIDOGREL BISULFATE 75 MG TABLET (FP) PO SCH (09:18)
[2016-04-03] MEDS: clonazePAM 0.5 MG TABLET PO SCH (09:18)
[2016-04-03] MEDS: GABAPENTIN 300 MG CAPSULE (FP) PO SCH (09:18)
[2016-04-03] MEDS: ISOSORBIDE MONONITRATE 30 MG TAB.SR.24H (FP) PO SCH (09:18)
[2016-04-03] MEDS: TIMOLOL 0.5% OPHTHALMIC SOL 5 ML BOTTLE OU SCH (09:21)
[2016-04-03] MEDS ORDERED: IBUPROFEN 200 MG TABLET PO PRN (09:25)
[2016-04-03] MEDS ORDERED: PANTOPRAZOLE 40 MG TABLET (FP) PO SCH (10:00)
--- NOTE | 2016-04-03 12:01 | PN ---
Progress Note, Physician History of Present Illness: seen and examined today in nad. c/o right sided headache and right eye pain which is chronic. no other new complaints. - Current Medication List Current Medications: Active Medications Amlodipine Besylate (Norvasc -) 10 mg PO DAILY [facility] Last Admin: 04/03/16 09:18 Dose: 10 mg Apixaban (Eliquis -) 2.5 mg PO BID [facility] Last Admin: 04/03/16 09:17 Dose: 2.5 mg Atropine Sulfate (Atropine 1% Ophth. Solution -) 1 drop OD HS [facility] Last Admin: 04/02/16 21:37 Dose: 1 drp Clonazepam (Klonopin -) 0.5 mg PO BID [facility] Last Admin: 04/03/16 09:18 Dose: 0.5 mg Clopidogrel Bisulfate (Plavix -) 75 mg PO DAILY [facility] Last Admin: 04/03/16 09:18 Dose: 75 mg Donepezil HCl (Aricept -) 5 mg PO HS [facility] Last Admin: 04/02/16 21:36 Dose: Not Given Gabapentin (Neurontin -) 300 mg PO BID [facility] Last Admin: 04/03/16 09:18 Dose: 300 mg Ibuprofen (Advil -) 200 mg PO Q4H PRN PRN Reason: PAIN Isosorbide Mononitrate (Imdur -) 30 mg PO DAILY [facility] Last Admin: 04/03/16 09:18 Dose: 30 mg Memantine (Namenda -) 10 mg PO HS [facility] Last Admin: 04/02/16 21:36 Dose: 10 mg Metoprolol Succinate (Toprol Xl -) 50 mg PO DAILY [facility] Last Admin: 04/03/16 09:18 Dose: 50 mg Pantoprazole Sodium (Protonix -) 40 mg PO DAILY [facility] Last Admin: 04/03/16 09:17 Dose: 40 mg Ranolazine (Ranexa -) 500 mg PO BID [facility] Last Admin: 04/03/16 09:17 Dose: 500 mg Tamsulosin HCl (Flomax -) 0.4 mg PO HS [facility] Last Admin: 04/02/16 21:36 Dose: 0.4 mg Timolol Maleate (Timoptic 0.5%) 1 drop OU BID [facility] Last Admin: 04/03/16 09:21 Dose: 1 drop - Objective Vital Signs: Vital Signs Temperature 98.2 F 04/03/16 08:20 Pulse Rate 60 04/03/16 08:20 Respiratory Rate 14 04/03/16 08:20 Blood Pressure 144/78 04/03/16 08:20 O2 Sat by Pulse Oximetry (%) 97 04/02/16 21:00 Constitutional: Yes: Well Nourished, No Distress, Calm Eyes: Yes: EOM Intact, Cataracts, Tearing HENT: Yes: WNL, Atraumatic, Normocephalic Neck: Yes: WNL, Supple, Trachea Midline Cardiovascular: Yes: Regular Rate and Rhythm, S1, S2. No: Bradycardia, Tachycardia, Pulse Irregular, Bruit, JVD, Gallop, Murmur, Rub, S3, S4, Varicosities Respiratory: Yes: WNL, Regular, CTA Bilaterally. No: Rales, Rhonchi, Wheezes Gastrointestinal: Yes: WNL, Normal Bowel Sounds, Soft. No: Distention, Tenderness Musculoskeletal: Yes: WNL Extremities: Yes: WNL Edema: No Peripheral Pulses WNL: Yes Peripheral Pulses: Left Doralis Pedis: 2+, Right Dorsalis Pedis: 2+ Integumentary: Yes: WNL Neurological: Yes: Alert, Oriented Psychiatric: Yes: Alert, Oriented Labs: CBC, BMP 03/31/16 06:05 03/31/16 06:05 INR, PTT INR 1.37 (0.82-1.09) H 03/30/16 13:00 - ....Imaging Chest X-ray: Report Reviewed, Image Reviewed EKG: Report Reviewed, Image Reviewed Other: Report Reviewed, Image Reviewed (tele-AV paced, pvcs) Problem List - Problems (1) Chest pain Code(s): R07.9 - CHEST PAIN, UNSPECIFIED Qualifiers: Chest pain type: unspecified Qualified Code(s): R07.9 - Chest pain, unspecified (2) Dementia Code(s): F03.90 - UNSPECIFIED DEMENTIA WITHOUT BEHAVIORAL DISTURBANCE Qualifiers: Dementia type: unspecified type Dementia behavioral disturbance: without behavioral disturbance Qualified Code(s): F03.90 - Unspecified dementia without behavioral disturbance (3) Acute on chronic systolic CHF (congestive heart failure), NYHA class 3 Code(s): I50.23 - ACUTE ON CHRONIC SYSTOLIC (CONGESTIVE) HEART FAILURE (4) Atypical chest pain Code(s): R07.89 - OTHER CHEST PAIN (5) CAD (coronary artery disease) Code(s): I25.10 - ATHSCL HEART DISEASE OF [place] CORONARY ARTERY W/O ANG PCTRS (6) CHF (congestive heart failure) Code(s): I50.9 - HEART FAILURE, UNSPECIFIED (7) HLD (hyperlipidemia) Code(s): E78.5 - HYPERLIPIDEMIA, UNSPECIFIED (8) HTN (hypertension) Code(s): I10 - ESSENTIAL (PRIMARY) HYPERTENSION (9) History of permanent cardiac pacemaker placement Code(s): Z95.0 - PRESENCE OF CARDIAC PACEMAKER (10) History of stroke Code(s): Z86.73 - PRSNL HX OF TIA (TIA), AND CEREB INFRC W/O RESID DEFICITS Assessment/Plan 75 year old man with a history of HTN, HLD, DM II, CAD with recent cardiac cath 11/04/15 showing (LM normal, pLAD patent prior stent, mLAD 30%, LCx mild, OM1 80% stenosis, pRCA 30%, dRCA 30%, RPL1 95% stenosis, LVEDP 18mmHg). He underwent PCI with stent (reported BMS) of OM1 with successful revascularization., known cardiomyopathy, Echo done 10/19/15 showed diffuse hypokinesis of LV with visual EF approx 35-40%, LVH, mild MR. 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 Chest pain- atypical with recent cath as above -known CAD and recent PCI as above -cardiac enzymes negative x3, no acute ST changes on ECG. -hold statin for allergy -cont with Plavix 75mg and eliquis 2.5mg bid as he is >1month post PCI with BMS -cont Imdur 30mg daily and Ranexa -no additional inpatient cardiac work up needed at this point -[facility] close outpatient follow up Cardiomyopathy-mixed non-ischemic and ischemic with moderate to severe LV systolic dysfunction, current mild acute on chronic systolic CHF -currently euvolemic, does not require diuresis -cont toprol -close outpatient follow up Recurrent DVT/PE's -on eliquis
== END 2016-04-03 12:21 ==
LOC: JER 12:25 → JERBED 17:19 → J4W 20:45
PROVIDERS: ADMIT Internal Medicine; ATTEND Internal Medicine
DX: R07.89 Other chest pain (principal); I50.23 Acute on chronic systolic (congestive) heart failure; F03.90 Unspecified dementia, unspecified severity, without behavioral disturbance, psychotic disturbance, mood disturbance, and anxiety; E78.5 Hyperlipidemia, unspecified; Z95.0 Presence of cardiac pacemaker; Z86.73 Personal history of transient ischemic attack (TIA), and cerebral infarction without residual deficits; I25.10 Atherosclerotic heart disease of native coronary artery without angina pectoris; Z98.61 Coronary angioplasty status; I13.0 Hypertensive heart and chronic kidney disease with heart failure and stage 1 through stage 4 chronic kidney disease, or unspecified chronic kidney disease; N18.9 Chronic kidney disease, unspecified; I42.9 Cardiomyopathy, unspecified; K21.9 Gastro-esophageal reflux disease without esophagitis; N40.0 Benign prostatic hyperplasia without lower urinary tract symptoms
CPT/HCPCS: 36415; 71010-TC; 80053; 82550; 83735; 84484; 85025; 85610; 93005; 93010; 93306-TC; 99285-25; G0378

== ENCOUNTER 2016-05-30 04:59 | Inpatient (IN) | payer OTHER ==
--- NOTE | 2016-05-30 05:25 | PDOC ---
History of Present Illness - General History Source: Patient Exam Limitations: No Limitations - History of Present Illness Initial Comments: 05/30/16 05:26 Patient is a 75 year old male with a significant past medical history of dementia, CHF, CAD, DM type 2, HTN, HLD, angina, GERD, stroke, and pacemaker in place who presents to the ED from [facility] with complaint of chest pain. Patient notes that he woke up with CP from his sleep. He states that the pain is 3/10 in severity pinching sensation no radiation or SOB. He states that he did not receive any medication. PCP - Dr. Vani Rivero <Yessi Wilkinson - Last Filed: 05/30/16 06:57> - General History Source: Patient <Junior Estrada - Last Filed: 05/30/16 07:09> - General Stated Complaint: CHEST PAIN Time Seen by Provider: 05/30/16 05:12 Past History <Yessi Wilkinson - Last Filed: 05/30/16 06:57> - Past Medical History Anemia: No Asthma: No Cancer: No Cardiac Disorders: Yes (angina, PE) COPD: No CHF: Yes Dementia: Yes (per record harm to self or others) Diabetes: Yes GI Disorders: No Disorders: Yes (BPH) HTN: Yes Hypercholesterolemia: Yes Liver Disease: No Seizures: No Thyroid Disease: No - Surgical History Abdominal Surgery: Yes Cardiac Surgery: Yes (PPM) Lung Surgery: No Neurologic Surgery: No - Psycho/Social/Smoking Cessation Hx Anxiety: No Suicidal Ideation: No Smoking History: Former smoker Have you smoked in the past 12 months: No Hx Alcohol Use: No Drug/Substance Use Hx: No Substance Use Type: None Hx Substance Use Treatment: No <Junior Estrada - Last Filed: 05/30/16 07:09> - Past Medical History Allergies/Adverse Reactions: Allergies Allergy/AdvReac Type Severity Reaction Status Date / Time acetaminophen Allergy Verified 05/30/16 05:33 oxycodone Allergy Verified 05/30/16 05:33 [id number] Reductase Allergy Verified 05/30/16 05:33 Inhibitor Home Medications: Ambulatory Orders Apixaban [Eliquis -] 2.5 mg PO BID 12/09/15 Nitroglycerin 0.4 mg SL PRN 12/09/15 Ranolazine [Ranexa] 500 mg PO BID 12/09/15 Tamsulosin HCl 0.4 mg PO HS 12/09/15 Timolol 0.5% [Timoptic 0.5%] 1 drop OU BID 12/10/15 Atropine 1% Ophth. Solution - 1 drop OD HS ml 12/31/15 Clopidogrel Bisulfate [Plavix -] 75 mg PO DAILY tablet 12/31/15 Donepezil HCl [Aricept -] 5 mg PO HS tablet 12/31/15 Isosorbide Mononitrate [Imdur -] 30 mg PO DAILY #30 tab.sr.24h 12/31/15 Memantine HCl [Namenda -] 10 mg PO HS tablet 12/31/15 Metoprolol Succinate [Toprol XL -] 50 mg PO DAILY tab.sr.24h 12/31/15 Amlodipine Besylate [Norvasc -] 10 mg PO DAILY 02/24/16 Clonazepam [Klonopin -] 0.5 mg PO BID 02/24/16 Gabapentin [Neurontin] 300 mg PO BID 02/24/16 Pantoprazole Sodium [Protonix -] 40 mg PO DAILY #30 tablet.ec 04/03/16 Review of Systems - Review of Systems Able to Perform ROS?: Yes Comments:: 05/30/16 05:26 CONSTITUTIONAL: Absent: fever, chills, diaphoresis, generalized weakness, malaise, loss of appetite HEENT: Absent: rhinorrhea, nasal congestion, throat pain, throat swelling, difficulty swallowing, mouth swelling, ear pain, eye pain, visual Changes CARDIOVASCULAR: Present: chest pain Absent: syncope, palpitations, irregular heart rate, lightheadedness, peripheral edema RESPIRATORY: Absent: cough, shortness of breath, dyspnea with exertion, orthopnea, wheezing, stridor, hemoptysis GASTROINTESTINAL: Absent: abdominal pain, abdominal distension, nausea, vomiting, diarrhea, constipation, melena, hematochezia GENITOURINARY: Absent: dysuria, frequency, urgency, hesitancy, hematuria, flank pain, genital pain MUSCULOSKELETAL: Absent: myalgia, arthralgia, joint swelling SKIN: Absent: rash, itching, pallor HEMATOLOGIC/IMMUNOLOGIC: Absent: easy bleeding, easy bruising, lymphadenopathy, frequent infections ENDOCRINE: Absent: unexplained weight gain, unexplained weight loss, heat intolerance, cold intolerance NEUROLOGIC: Absent: headache, focal weakness or paresthesias, dizziness, unsteady gait, seizure, mental status changes, bladder or bowel incontinence PSYCHIATRIC: Absent: anxiety, depression, suicidal or homicidal ideation, hallucinations. <Yessi Wilkinson - Last Filed: 05/30/16 06:57> *Physical Exam - Physical Exam Comments: 05/30/16 05:27 GENERAL: Well developed, well nourished. Awake and alert. In no acute distress. HEENT: Normocephalic, atraumatic. PERRLA, EOMI. No conjunctival pallor. Sclerae are non -icteric. Moist mucous membranes. Oropharynx is clear. NECK: Supple. Full ROM. No JVD. Carotid pulses 2+ and symmetric, without bruits. No thyromegaly. No lymphadenopathy. CARDIOVASCULAR: Regular rate and rhythm. No murmurs, rubs, or gallops. Distal pulses are 2+ and symmetric. PULMONARY: No evidence of respiratory distress. Lungs clear to auscultation bilaterally. No wheezing, rales or rhonchi. ABDOMINAL: Soft. Non-tender. Non-distended. No rebound or guarding. No organomegaly. Normoactive bowel sounds. MUSCULOSKELETAL Normal range of motion at all joints. No bony deformities or tenderness. No CVA tenderness. EXTREMITIES: No cyanosis. No clubbing. No edema. No calf tenderness. SKIN: Warm and dry. Normal capillary refill. No rashes. No jaundice. NEUROLOGICAL: Alert, awake, appropriate. Cranial nerves 2-12 intact. No deficits to light touch and temperature in face, upper extremities and lower extremities. No motor deficits in the in face, upper extremities and lower extremities. Normoreflexic in the upper and lower extremities. Normal speech. PSYCHIATRIC: Cooperative. Good eye contact. Appropriate mood and affect. <Yessi Wilkinson - Last Filed: 05/30/16 06:57> Heart Score/ECG Review #1 05/30/16 05:28 ECG was reviewed by Dr. Estrada Impression: atrial-paced rhythm with prolonged AV conduction left anterior fascicular block possible lateral infarct Vent rate 60 bpm #2 05/30/16 06:[address] Estrada Impression: atrial placed rhythm with prolonged AV conduction left axis deviation nonspecific intraventricular block possible lateral infarct vent rate 60 bpm <Yessi Wilkinson - Last Filed: 05/30/16 06:57> ED Treatment Course - LABORATORY CBC & Chemistry Diagram: 05/30/16 05:30 05/30/16 05:30 <Yessi Wilkinson - Last Filed: 05/30/16 06:57> - LABORATORY CBC & Chemistry Diagram: 05/30/16 05:30 05/30/16 05:30 <Junior Estrada - Last Filed: 05/30/16 07:09> Medical Decision Making - Medical Decision Making 05/30/16 06:56 Pt developed cp while in ED with 6/10 in severity. Patient given nitropaste half inch placed on chest. ECG repeated. 05/30/16 06:57 A call was placed to Dr. Rivero. Awaiting a call back. <Yessi Wilkinson - Last Filed: 05/30/16 06:57> - Medical Decision Making 05/30/16 07:09 Dr. Estrada: The scribe's documentation has been prepared under my direction and personally reviewed by me in its entirery. I confirm that the note above accurately reflects all work, treatment, procedures, and medical decision making performed by me. <Junior Estrada - Last Filed: 05/30/16 07:09> *DC/Admit/Observation/Transfer - Attestations Scribe Attestion: 05/30/16 05:27 Documentation prepared by SYLVIA Bonilla, acting as manager medical writing for Junior Estrada DO. <Yessi Wilkinson - Last Filed: 05/30/16 06:57> - Discharge Dispostion Admit: Yes <Junior Estrada - Last Filed: 05/30/16 07:09> Diagnosis at time of Disposition: Chest pain - Referrals Referrals: Isael Danielson MD [Primary Care Provider] -
[2016-05-30 05:34] VITALS: BMI 29.1
[2016-05-30 05:58] LABS: BASOPHIL 0.6 % (0-2.0); EOSINOPHIL 2.8 % (0-4.5); MCH 30.8 pg (25.7-33.7); MCHC 34.3 g/dl (32.0-35.9); MEAN CELL VOLUME 89.8 fl (80-96); MEAN PLT VOLUME 9.9 fl (7.5-11.1); NEUTROPHILS 55.3 % (42.8-82.8); PLATELET COUNT 198 K/MM3 (134-434); RDW 14.7 % (11.9-15.9)
[2016-05-30 06:22] LABS: INR 1.15 (0.82-1.09); PROTHROMBIN TIME (PATIENT) 12.7 SEC (9.98-11.88)
[2016-05-30 06:37] LABS: TROPONIN I 0.03 ng/ml (0.00-0.05)
[2016-05-30] MEDS ORDERED: NITROGLYCERIN 2% OINTMENT - 1GM PACKET TD ONE ×2 (06:38→06:40)
[2016-05-30 07:27] LABS: ALBUMIN 3.2 g/dl (3.4-5.0); BILIRUBIN,TOTAL 0.5 mg/dL (0.2-1.0); CALCIUM 8.8 mg/dL (8.5-10.1); CREATININE 1.4 mg/dL (0.7-1.3)
--- NOTE | 2016-05-30 10:55 | EKG ---
Test Reason : Blood Pressure : / mmHG Vent. Rate : 060 BPM Atrial Rate : 060 BPM P-R Int : 262 ms QRS Dur : 132 ms QT Int : 448 ms P-R-T Axes : -28 -60 076 degrees QTc Int : 448 ms Atrial-paced rhythm with prolonged AV conduction LEFT AXIS DEVIATION NON-SPECIFIC INTRA-VENTRICULAR CONDUCTION BLOCK POSSIBLE LATERAL INFARCT (CITED ON OR BEFORE 22-JAN-2016) ABNORMAL ECG WHEN COMPARED WITH ECG OF 30-MAY-2016 05:14, NO SIGNIFICANT CHANGE WAS FOUND Confirmed by KATE PATRICK MD ([id number]) on 05/30/2016 10:55:26 AM Referred By: Confirmed By:KATE PATRICK MD
--- NOTE | 2016-05-30 10:56 | EKG ---
Test Reason : Blood Pressure : / mmHG Vent. Rate : 060 BPM Atrial Rate : 060 BPM P-R Int : 260 ms QRS Dur : 124 ms QT Int : 438 ms P-R-T Axes : 000 -60 081 degrees QTc Int : 438 ms Atrial-paced rhythm with prolonged AV conduction LEFT ANTERIOR FASCICULAR BLOCK POSSIBLE LATERAL INFARCT (CITED ON OR BEFORE 22-JAN-2016) ABNORMAL ECG WHEN COMPARED WITH ECG OF 01-APR-2016 21:42, T WAVE VARIATION Confirmed by KATE PATRICK MD ([id number]) on 05/30/2016 10:55:56 AM Referred By: Confirmed By:KATE PATRICK MD
[2016-05-30] MEDS ORDERED: clonazePAM 0.5 MG TABLET ONE (14:39)
[2016-05-30] MEDS ORDERED: METOPROLOL SUCCINATE 50 MG TAB.SR.24H (FP) ONE (14:39)
[2016-05-30] MEDS ORDERED: CLOPIDOGREL BISULFATE 75 MG TABLET (FP) ONE (14:40)
[2016-05-30] MEDS: METOPROLOL SUCCINATE 50 MG TAB.SR.24H (FP) PO SCH (14:42)
[2016-05-30] MEDS: CLOPIDOGREL BISULFATE 75 MG TABLET (FP) PO SCH (14:42)
[2016-05-30] MEDS: clonazePAM 0.5 MG TABLET PO SCH ×2 (14:42→22:26)
--- NOTE | 2016-05-30 18:33 | CON.CARD ---
Consult Consult Specialty:: cardiology Reason for Consultation:: chest pain - History of Present Illness Chief Complaint: Pt is confused; denies chest pain or dyspnea History of Present Illness: Patient is a 75 year old male with a significant past medical history of dementia, CHF, CAD, VTE-->apixaban, DM type 2, HTN, HLD, angina, GERD, stroke, and pacemaker, who presents to the ED from [facility] with complaint of chest pain. Patient notes that he woke up with CP from his sleep. He states that the pain is 3/10 in severity pinching sensation no radiation or SOB. He states that he did not receive any medication. PCP - Dr. 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 Cardio/Vascular: Yes: CAD, CHF, HTN, Hyperlipdemia, Other (PPM Cardiomyopathy) Gastrointestinal: Yes: GERD Renal/: Yes: Renal Failure, BPH Psych: Yes: Depression Musculoskeletal: Yes: Other (Peripheral neuropathy) Rheumatology: Yes: Other (Peripheral neuropathy) Endocrine: Yes: Diabetes Mellitus - Past Surgical History Past Surgical History: Yes: Permanent Pacemaker - Alcohol/Substance Use Hx Alcohol Use: No - Smoking History Smoking history: Former smoker Have you smoked in the past 12 months: No - Social History Usual Living Arrangement: Long-Term ADL: Support Services History of Recent Travel: No Home Medications - Allergies Allergies/Adverse Reactions: Allergies Allergy/AdvReac Type Severity Reaction Status Date / Time acetaminophen Allergy Verified 05/30/16 05:33 oxycodone Allergy Verified 05/30/16 05:33 Cjivzgf-Lhk-Hqi Reductase Allergy Verified 05/30/16 05:33 Inhibitor - Home Medications Home Medications: Ambulatory Orders Apixaban [Eliquis -] 2.5 mg PO BID 12/09/15 Nitroglycerin 0.4 mg SL PRN 12/09/15 Ranolazine [Ranexa] 500 mg PO BID 12/09/15 Tamsulosin HCl 0.4 mg PO HS 12/09/15 Timolol 0.5% [Timoptic 0.5%] 1 drop OU BID 12/10/15 Atropine 1% Ophth. Solution - 1 drop OD HS ml 12/31/15 Clopidogrel Bisulfate [Plavix -] 75 mg PO DAILY tablet 12/31/15 Donepezil HCl [Aricept -] 5 mg PO HS tablet 12/31/15 Isosorbide Mononitrate [Imdur -] 30 mg PO DAILY #30 tab.sr.24h 12/31/15 Memantine HCl [Namenda -] 10 mg PO HS tablet 12/31/15 Metoprolol Succinate [Toprol XL -] 50 mg PO DAILY tab.sr.24h 12/31/15 Amlodipine Besylate [Norvasc -] 10 mg PO DAILY 02/24/16 Clonazepam [Klonopin -] 0.5 mg PO BID 02/24/16 Gabapentin [Neurontin] 300 mg PO BID 02/24/16 Pantoprazole Sodium [Protonix -] 40 mg PO DAILY #30 tablet.ec 04/03/16 Dorzolamide HCl [Trusopt 2%] 1 drop OD TID 05/30/16 Hypromellose 0.5% Opth Soln [Artificial Tears] 1 drop OU QID 05/30/16 Ibuprofen [Advil -] 200 mg PO Q6H PRN 05/30/16 Review of Systems - Review of Systems Constitutional: reports: Weakness Eyes: reports: No Symptoms HENT: reports: No Symptoms Neck: reports: No Symptoms Cardiovascular: reports: Chest Pain Neurological: reports: Confusion - Risk Factors Known Risk Factors: Yes: Age, Hypercholesterolemia, Hypertension, Physical Inactivity Vital Signs: Vital Signs Temperature 97.8 F 05/30/16 11:07 Pulse Rate 76 05/30/16 11:07 Respiratory Rate 20 05/30/16 11:07 Blood Pressure 143/82 05/30/16 11:07 O2 Sat by Pulse Oximetry (%) 99 05/30/16 11:07 Constitutional: Yes: Anxious Eyes: Yes: WNL HENT: Yes: WNL Neck: Yes: WNL Respiratory: Yes: Regular Gastrointestinal: Yes: Soft Renal/: Yes: Anuria Heart Sounds: Yes: S1, Split S2 Murmur: Yes: Systolic Murmur, Grade 2 Musculoskeletal: Yes: Muscle Weakness Extremities: Yes: Cool Edema: No Peripheral Pulses WNL: No Peripheral Pulses: 1+ Left Doralis Pedis, 1+ Right Dorsalis Pedis Integumentary: Yes: WNL Neurological: Yes: Confusion, Weakness Psychiatric: Yes: Other (dementia) - Other Data Labs, Other Data: INR, PTT INR 1.15 (0.82-1.09) H 05/30/16 05:30 Echo: Report Reviewed (moderately decreased LVEF) Ejection Fraction %: LVEF < 40 % Imaging - Results EKG: Image Reviewed (atrial pacing) Problem List - Problems (1) Chest pain Assessment/Plan: 1st TNI 0.03; f/u serially. Serial EKGs. On metoprol; consider starting ACEI (systolic CHF; HTN; CAD). F/u recent cardiac workup; pt for further coronary artery evaluation in am ( stress MIBI). Code(s): R07.9 - CHEST PAIN, UNSPECIFIED (2) Acute on chronic systolic CHF (congestive heart failure), NYHA class 3 Assessment/Plan: Please see other details under "Chest Pain". F/u Is and Os, daily weight, BUN/Cr, electrolytes. No JVD or leg edema presnelty; pt is not in respiratory distresss; no acute pathology on CXR. Code(s): I50.23 - ACUTE ON CHRONIC SYSTOLIC (CONGESTIVE) HEART FAILURE (3) CAD (coronary artery disease) Code(s): I25.10 - ATHSCL HEART DISEASE OF [place] CORONARY ARTERY W/O ANG PCTRS (4) Dementia Code(s): F03.90 - UNSPECIFIED DEMENTIA WITHOUT BEHAVIORAL DISTURBANCE Qualifiers: Dementia type: unspecified type Dementia behavioral disturbance: without behavioral disturbance Qualified Code(s): F03.90 - Unspecified dementia without behavioral disturbance (5) Diabetes mellitus type 2 in nonobese Code(s): E11.9 - TYPE 2 DIABETES MELLITUS WITHOUT COMPLICATIONS (6) HLD (hyperlipidemia) Code(s): E78.5 - HYPERLIPIDEMIA, UNSPECIFIED (7) HTN (hypertension) Code(s): I10 - ESSENTIAL (PRIMARY) HYPERTENSION (8) History of permanent cardiac pacemaker placement Code(s): Z95.0 - PRESENCE OF CARDIAC PACEMAKER (9) History of stroke Code(s): Z86.73 - PRSNL HX OF TIA (TIA), AND CEREB INFRC W/O RESID DEFICITS (10) Weakness Code(s): R53.1 - WEAKNESS
--- NOTE | 2016-05-30 18:45 | HP ---
Admitting History and Physical - Admission Chief Complaint: Chest pain History of Present Illness: Pt is a 75 y/o male w/ multiple medical problems including angina and multiple admissions for chest pain. Pt was sent from SNF due to chest pain wc has been intermittent for the past 1-2 days although pt is a poor historian. Pt is now chest pain free. 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 Cardiovascular: Yes: CAD, CHF, HTN, Hyperlipdemia, Other (PPM Cardiomyopathy) Gastrointestinal: Yes: GERD Renal/: Yes: Renal Failure, BPH Heme/Onc: Yes: Other (PE/DVT) Psych: Yes: Depression Musculoskeletal: Yes: Other (Peripheral neuropathy) Rheumatology: Yes: Other (Peripheral neuropathy) Endocrine: Yes: Diabetes Mellitus - Past Surgical History Past Surgical History: Yes: Permanent Pacemaker - Smoking History Smoking history: Former smoker Have you smoked in the past 12 months: No - Alcohol/Substance Use Hx Alcohol Use: No - Social History ADL: Support Services History of Recent Travel: No Home Medications - Allergies Allergies/Adverse Reactions: Allergies Allergy/AdvReac Type Severity Reaction Status Date / Time acetaminophen Allergy Verified 05/30/16 05:33 oxycodone Allergy Verified 05/30/16 05:33 Opcjljp-Qny-Uss Reductase Allergy Verified 05/30/16 05:33 Inhibitor - Home Medications Home Medications: Ambulatory Orders Apixaban [Eliquis -] 2.5 mg PO BID 12/09/15 Nitroglycerin 0.4 mg SL PRN 12/09/15 Ranolazine [Ranexa] 500 mg PO BID 12/09/15 Tamsulosin HCl 0.4 mg PO HS 12/09/15 Timolol 0.5% [Timoptic 0.5%] 1 drop OU BID 12/10/15 Atropine 1% Ophth. Solution - 1 drop OD HS ml 12/31/15 Clopidogrel Bisulfate [Plavix -] 75 mg PO DAILY tablet 12/31/15 Donepezil HCl [Aricept -] 5 mg PO HS tablet 12/31/15 Isosorbide Mononitrate [Imdur -] 30 mg PO DAILY #30 tab.sr.24h 12/31/15 Memantine HCl [Namenda -] 10 mg PO HS tablet 12/31/15 Metoprolol Succinate [Toprol XL -] 50 mg PO DAILY tab.sr.24h 12/31/15 Amlodipine Besylate [Norvasc -] 10 mg PO DAILY 02/24/16 Clonazepam [Klonopin -] 0.5 mg PO BID 02/24/16 Gabapentin [Neurontin] 300 mg PO BID 02/24/16 Pantoprazole Sodium [Protonix -] 40 mg PO DAILY #30 tablet.ec 04/03/16 Dorzolamide HCl [Trusopt 2%] 1 drop OD TID 05/30/16 Hypromellose 0.5% Opth Soln [Artificial Tears] 1 drop OU QID 05/30/16 Ibuprofen [Advil -] 200 mg PO Q6H PRN 05/30/16 Review of Systems - Review of Systems Constitutional: reports: No Symptoms Eyes: reports: No Symptoms HENT: reports: No Symptoms Neck: reports: No Symptoms Cardiovascular: reports: Chest Pain Respiratory: reports: No Symptoms Gastrointestinal: reports: No Symptoms Physical Examination Vital Signs: Vital Signs Temperature 97.8 F 05/30/16 11:07 Pulse Rate 76 05/30/16 11:07 Respiratory Rate 20 05/30/16 11:07 Blood Pressure 143/82 05/30/16 11:07 O2 Sat by Pulse Oximetry (%) 99 05/30/16 11:07 Constitutional: Yes: Well Nourished Eyes: Yes: WNL HENT: Yes: WNL Neck: Yes: Supple Cardiovascular: Yes: WNL, Regular Rate and Rhythm Respiratory: Yes: WNL, Regular, CTA Bilaterally Gastrointestinal: Yes: WNL, Normal Bowel Sounds, Soft Musculoskeletal: Yes: WNL Extremities: Yes: WNL Edema: No Neurological: Yes: WNL, Alert, Oriented Problem List - Problems (1) Chest pain Assessment/Plan: Admit to tele Serial cpk/troponin Cardio consult Echo Code(s): R07.9 - CHEST PAIN, UNSPECIFIED (2) BPH (benign prostatic hyperplasia) Code(s): N40.0 - BENIGN PROSTATIC HYPERPLASIA WITHOUT LOWER URINRY TRACT SYMP (3) CAD (coronary artery disease) Code(s): I25.10 - ATHSCL HEART DISEASE OF [place] CORONARY ARTERY W/O ANG PCTRS (4) CHF (congestive heart failure) Code(s): I50.9 - HEART FAILURE, UNSPECIFIED (5) Diabetes mellitus type 2 in nonobese Code(s): E11.9 - TYPE 2 DIABETES MELLITUS WITHOUT COMPLICATIONS (6) GERD (gastroesophageal reflux disease) Code(s): K21.9 - GASTRO-ESOPHAGEAL REFLUX DISEASE WITHOUT ESOPHAGITIS (7) HLD (hyperlipidemia) Code(s): E78.5 - HYPERLIPIDEMIA, UNSPECIFIED (8) HTN (hypertension) Code(s): I10 - ESSENTIAL (PRIMARY) HYPERTENSION (9) History of permanent cardiac pacemaker placement Code(s): Z95.0 - PRESENCE OF CARDIAC PACEMAKER (10) History of stroke Code(s): Z86.73 - PRSNL HX OF TIA (TIA), AND CEREB INFRC W/O RESID DEFICITS
[2016-05-30] MEDS: RANOLAZINE E.R. 500 MG TABLET (FP) PO SCH (22:26)
[2016-05-30] MEDS: TAMSULOSIN HCL 0.4 MG CAP.ER.24H (FP) PO SCH (22:26)
[2016-05-30] MEDS: DONEPEZIL HCL 5 MG TABLET (FP) PO SCH (22:26)
[2016-05-30] MEDS: MEMANTINE HCL 10 MG TABLET (FP) PO SCH (22:27)
[2016-05-30] MEDS: APIXABAN 2.5 MG TABLET PO SCH (22:27)
[2016-05-30] MEDS: TIMOLOL 0.5% OPHTHALMIC SOL 5 ML BOTTLE OU SCH (22:27)
[2016-05-30] MEDS: ATROPINE SO4 1% OPHTH SOLN 5 ML BOTTLE OD SCH (22:27)
[2016-05-30] MEDS: GABAPENTIN 300 MG CAPSULE (FP) PO SCH (22:27)
[2016-05-30] MEDS ORDERED: PT OWN MED DRAWER 7, Y5N ONE (23:49)
[2016-05-31 00:24] LABS: TROPONIN I 0.03 ng/ml (0.00-0.05)
[2016-05-31 07:36] LABS: BASOPHIL 0.6 % (0-2.0); EOSINOPHIL 2.7 % (0-4.5); MCH 30.7 pg (25.7-33.7); MCHC 33.9 g/dl (32.0-35.9); MEAN CELL VOLUME 90.5 fl (80-96); MEAN PLT VOLUME 9.6 fl (7.5-11.1); NEUTROPHILS 51.4 % (42.8-82.8); PLATELET COUNT 166 K/MM3 (134-434); RDW 14.9 % (11.9-15.9)
[2016-05-31 08:13] LABS: CALCIUM 8.4 mg/dL (8.5-10.1)
[2016-05-31 08:17] LABS: BILIRUBIN,TOTAL 0.5 mg/dL (0.2-1.0); CREATININE 1.4 mg/dL (0.7-1.3); TOT PROT 5.6 g/dl (6.4-8.2)
--- NOTE | 2016-05-31 08:52 | PN ---
Progress Note, Physician Chief Complaint: atypical CP, reproducible - Current Medication List Current Medications: Active Medications Amlodipine Besylate (Norvasc -) 10 mg PO DAILY [facility] Apixaban (Eliquis -) 2.5 mg PO BID [facility] Last Admin: 05/30/16 22:27 Dose: 2.5 mg Atropine Sulfate (Atropine 1% Ophth. Solution -) 1 drop OD [facility] Last Admin: 05/30/16 22:27 Dose: Not Given Clonazepam (Klonopin -) 0.5 mg PO BID [facility] Last Admin: 05/30/16 22:26 Dose: 0.5 mg Clopidogrel Bisulfate (Plavix -) 75 mg PO DAILY [facility] Last Admin: 05/30/16 14:42 Dose: 75 mg Donepezil HCl (Aricept -) 5 mg PO HS [facility] Last Admin: 05/30/16 22:26 Dose: 5 mg Gabapentin (Neurontin -) 300 mg PO BID [facility] Last Admin: 05/30/16 22:27 Dose: 300 mg Isosorbide Mononitrate (Imdur -) 30 mg PO DAILY [facility] Memantine (Namenda -) 10 mg PO [facility] Last Admin: 05/30/16 22:27 Dose: 10 mg Metoprolol Succinate (Toprol Xl -) 50 mg PO DAILY [facility] Last Admin: 05/30/16 14:42 Dose: 50 mg Pantoprazole Sodium (Protonix -) 40 mg PO DAILY [facility] Ranolazine (Ranexa -) 500 mg PO BID [facility] Last Admin: 05/30/16 22:26 Dose: 500 mg Tamsulosin HCl (Flomax -) 0.4 mg PO [facility] Last Admin: 05/30/16 22:26 Dose: 0.4 mg Timolol Maleate (Timoptic 0.5%) 1 drop OU BID [facility] Last Admin: 05/30/16 22:27 Dose: 1 drop - Objective Vital Signs: Vital Signs Temperature 98 F 05/31/16 05:00 Pulse Rate 60 05/31/16 05:00 Respiratory Rate 16 05/31/16 05:00 Blood Pressure 132/70 05/31/16 05:00 O2 Sat by Pulse Oximetry (%) 99 05/31/16 02:46 Constitutional: Yes: Calm Cardiovascular: Yes: Regular Rate and Rhythm Respiratory: Yes: CTA Bilaterally Gastrointestinal: Yes: Soft Edema: No Neurological: Yes: Alert Labs: CBC, BMP 05/31/16 05:35 05/31/16 05:35 INR, PTT INR 1.15 (0.82-1.09) H 05/30/16 05:30 Laboratory Tests 05/30/16 05/30/16 05/31/16 05:30 23:30 05:35 WBC 6.0 Hgb 13.2 Plt Count 166 Potassium Creatinine Troponin I 0.03 D 0.03 05/31/16 05:35 WBC Hgb Plt Count Potassium 3.8 Creatinine 1.4 H Troponin I - ....Imaging EKG: Image Reviewed Assessment/Plan IMP: Atypical CP H/O CAD s/p PCI H/O VTE on Eliquis REC: For persantine MIBI in AM
[2016-05-31] MEDS ORDERED: PT OWN MED DRAWER 7, Y5N ONE ×2 (09:59→21:31)
[2016-05-31] MEDS: amLODIPine BESYLATE 5 MG TABLET (FP) PO SCH (10:00)
[2016-05-31] MEDS: APIXABAN 2.5 MG TABLET PO SCH ×2 (10:00→21:39)
[2016-05-31] MEDS: clonazePAM 0.5 MG TABLET PO SCH ×2 (10:00→21:39)
[2016-05-31] MEDS: ISOSORBIDE MONONITRATE 30 MG TAB.SR.24H (FP) PO SCH (10:00)
[2016-05-31] MEDS: GABAPENTIN 300 MG CAPSULE (FP) PO SCH ×2 (10:00→21:38)
[2016-05-31] MEDS: PANTOPRAZOLE 40 MG TABLET (FP) PO SCH (10:01)
[2016-05-31] MEDS: METOPROLOL SUCCINATE 50 MG TAB.SR.24H (FP) PO SCH (10:01)
[2016-05-31] MEDS: TIMOLOL 0.5% OPHTHALMIC SOL 5 ML BOTTLE OU SCH ×2 (10:01→21:40)
[2016-05-31] MEDS: RANOLAZINE E.R. 500 MG TABLET (FP) PO SCH ×2 (10:01→21:38)
[2016-05-31] MEDS: CLOPIDOGREL BISULFATE 75 MG TABLET (FP) PO SCH (10:01)
--- NOTE | 2016-05-31 17:49 | PN ---
Progress Note, Physician History of Present Illness: Pt states that he awoke w/ chest pain but has been chest pain free all day - Current Medication List Current Medications: Active Medications Amlodipine Besylate (Norvasc -) 10 mg PO DAILY [facility] Last Admin: 05/31/16 10:00 Dose: 10 mg Apixaban (Eliquis -) 2.5 mg PO BID [facility] Last Admin: 05/31/16 10:00 Dose: 2.5 mg Atropine Sulfate (Atropine 1% Ophth. Solution -) 1 drop OD [facility] Last Admin: 05/30/16 22:27 Dose: Not Given Clonazepam (Klonopin -) 0.5 mg PO BID [facility] Last Admin: 05/31/16 10:00 Dose: 0.5 mg Clopidogrel Bisulfate (Plavix -) 75 mg PO DAILY [facility] Last Admin: 05/31/16 10:01 Dose: 75 mg Donepezil HCl (Aricept -) 5 mg PO HS [facility] Last Admin: 05/30/16 22:26 Dose: 5 mg Gabapentin (Neurontin -) 300 mg PO BID [facility] Last Admin: 05/31/16 10:00 Dose: 300 mg Isosorbide Mononitrate (Imdur -) 30 mg PO DAILY [facility] Last Admin: 05/31/16 10:00 Dose: 30 mg Memantine (Namenda -) 10 mg PO [facility] Last Admin: 05/30/16 22:27 Dose: 10 mg Metoprolol Succinate (Toprol Xl -) 50 mg PO DAILY [facility] Last Admin: 05/31/16 10:01 Dose: 50 mg Pantoprazole Sodium (Protonix -) 40 mg PO DAILY [facility] Last Admin: 05/31/16 10:01 Dose: 40 mg Ranolazine (Ranexa -) 500 mg PO BID [facility] Last Admin: 05/31/16 10:01 Dose: 500 mg Tamsulosin HCl (Flomax -) 0.4 mg PO HS [facility] Last Admin: 05/30/16 22:26 Dose: 0.4 mg Timolol Maleate (Timoptic 0.5%) 1 drop OU BID [facility] Last Admin: 05/31/16 10:01 Dose: 1 drop - Objective Vital Signs: Vital Signs Temperature 97.3 F L 05/31/16 14:28 Pulse Rate 60 05/31/16 14:28 Respiratory Rate 18 05/31/16 14:28 Blood Pressure 114/62 05/31/16 14:28 O2 Sat by Pulse Oximetry (%) 97 05/31/16 10:00 Neck: Yes: Supple Cardiovascular: Yes: WNL, Regular Rate and Rhythm Respiratory: Yes: WNL, Regular, CTA Bilaterally Gastrointestinal: Yes: WNL, Normal Bowel Sounds, Soft Labs: CBC, BMP 05/31/16 05:35 05/31/16 05:35 INR, PTT INR 1.15 (0.82-1.09) H 05/30/16 05:30 Problem List - Problems (1) Chest pain Assessment/Plan: As per cardio ?atypical chest pain Stress test in am DC planning to SNF Code(s): R07.9 - CHEST PAIN, UNSPECIFIED (2) BPH (benign prostatic hyperplasia) Code(s): N40.0 - BENIGN PROSTATIC HYPERPLASIA WITHOUT LOWER URINRY TRACT SYMP (3) CAD (coronary artery disease) Code(s): I25.10 - ATHSCL HEART DISEASE OF [place] CORONARY ARTERY W/O ANG PCTRS (4) CHF (congestive heart failure) Code(s): I50.9 - HEART FAILURE, UNSPECIFIED (5) Diabetes mellitus type 2 in nonobese Code(s): E11.9 - TYPE 2 DIABETES MELLITUS WITHOUT COMPLICATIONS (6) GERD (gastroesophageal reflux disease) Code(s): K21.9 - GASTRO-ESOPHAGEAL REFLUX DISEASE WITHOUT ESOPHAGITIS (7) HLD (hyperlipidemia) Code(s): E78.5 - HYPERLIPIDEMIA, UNSPECIFIED (8) HTN (hypertension) Code(s): I10 - ESSENTIAL (PRIMARY) HYPERTENSION (9) History of permanent cardiac pacemaker placement Code(s): Z95.0 - PRESENCE OF CARDIAC PACEMAKER (10) History of stroke Code(s): Z86.73 - PRSNL HX OF TIA (TIA), AND CEREB INFRC W/O RESID DEFICITS
[2016-05-31] MEDS: DONEPEZIL HCL 5 MG TABLET (FP) PO SCH (21:38)
[2016-05-31] MEDS: MEMANTINE HCL 10 MG TABLET (FP) PO SCH (21:39)
[2016-05-31] MEDS: TAMSULOSIN HCL 0.4 MG CAP.ER.24H (FP) PO SCH (21:39)
[2016-05-31] MEDS: ATROPINE SO4 1% OPHTH SOLN 5 ML BOTTLE OD SCH (21:39)
--- NOTE | 2016-06-01 09:26 | PN ---
Progress Note (short form) - Note Progress Note: Seen and examined. Vitals stable. No sig events on tele. Enzymes all negative. Plan: Persantine MIBI today, further reccs pending result.
[2016-06-01] MEDS ORDERED: DIPYRIDAMOLE STRESS TEST IVPB ONE (10:00)
[2016-06-01] MEDS ORDERED: WATER IVPB ONE (10:00)
[2016-06-01] MEDS ORDERED: DEXTROSE 5% IVPB ONE (10:00)
[2016-06-01] MEDS ORDERED: PT OWN MED DRAWER 7, Y5N ONE ×2 (10:09→15:35)
[2016-06-01] MEDS: amLODIPine BESYLATE 5 MG TABLET (FP) PO SCH (12:10)
[2016-06-01] MEDS: APIXABAN 2.5 MG TABLET PO SCH (12:10)
[2016-06-01] MEDS: clonazePAM 0.5 MG TABLET PO SCH (12:11)
[2016-06-01] MEDS: GABAPENTIN 300 MG CAPSULE (FP) PO SCH (12:13)
[2016-06-01] MEDS: ISOSORBIDE MONONITRATE 30 MG TAB.SR.24H (FP) PO SCH (12:14)
[2016-06-01] MEDS: RANOLAZINE E.R. 500 MG TABLET (FP) PO SCH (12:15)
[2016-06-01] MEDS: PANTOPRAZOLE 40 MG TABLET (FP) PO SCH (12:15)
[2016-06-01] MEDS: METOPROLOL SUCCINATE 50 MG TAB.SR.24H (FP) PO SCH (12:16)
[2016-06-01] MEDS: CLOPIDOGREL BISULFATE 75 MG TABLET (FP) PO SCH (12:18)
[2016-06-01] MEDS: TIMOLOL 0.5% OPHTHALMIC SOL 5 ML BOTTLE OU SCH (12:19)
[2016-06-01 15:14] VITALS: PULSE 62; TEMP 97.8
[2016-06-01 18:48] VITALS: BP 126/58
--- NOTE | 2016-07-30 17:30 | DS ---
Physical Examination Vital Signs: Vital Signs Temperature 97.8 F 06/01/16 17:00 Pulse Rate 62 06/01/16 17:00 Respiratory Rate 20 06/01/16 17:00 Blood Pressure 126/58 06/01/16 17:00 O2 Sat by Pulse Oximetry (%) 99 06/01/16 08:30 Constitutional: Yes: Well Nourished Neck: Yes: Supple Cardiovascular: Yes: WNL, Regular Rate and Rhythm Respiratory: Yes: WNL, Regular, CTA Bilaterally Gastrointestinal: Yes: WNL, Normal Bowel Sounds, Soft Discharge Summary Reason For Visit: CHEST PAIN Hospital Course: Pt is a 75 y/o male w/ multiple medical problems including angina and multiple admissions for chest pain. Pt was sent from SNF due to chest pain wc has been intermittent for the past 1-2 days although pt is a poor historian. Pt is now chest pain free. Pt denies any SOB/palpitations and first troponin was negative. Pt had negative troponins and was dc'ed back to SNF Pt seen and cleared by cardio Condition: Fair - Instructions Diet, Activity, Other Instructions: 2 gram sodium diet Referrals: Isael Danielson MD [Primary Care Provider] - Vani Rivero MD [Staff Physician] - Disposition: [facility] - Home Medications Comprehensive Discharge Medication List: Ambulatory Orders Apixaban [Eliquis -] 2.5 mg PO BID 12/09/15 Nitroglycerin 0.4 mg SL PRN 12/09/15 Ranolazine [Ranexa] 500 mg PO BID 12/09/15 Tamsulosin HCl 0.4 mg PO HS 12/09/15 Timolol 0.5% [Timoptic 0.5%] 1 drop OU BID 12/10/15 Atropine 1% Ophth. Solution - 1 drop OD HS ml 12/31/15 Clopidogrel Bisulfate [Plavix -] 75 mg PO DAILY tablet 12/31/15 Donepezil HCl [Aricept -] 5 mg PO HS tablet 12/31/15 Isosorbide Mononitrate [Imdur -] 30 mg PO DAILY #30 tab.sr.24h 12/31/15 Memantine HCl [Namenda -] 10 mg PO HS tablet 12/31/15 Metoprolol Succinate [Toprol XL -] 50 mg PO DAILY tab.sr.24h 10/07/16 Amlodipine Besylate [Norvasc -] 10 mg PO DAILY 02/24/16 Gabapentin [Neurontin] 300 mg PO BID 02/24/16 Pantoprazole Sodium [Protonix -] 40 mg PO DAILY #30 tablet.ec 04/03/16 Dorzolamide HCl [Trusopt 2% -] 1 drop OD TID 05/30/16 Hypromellose 0.5% Opth Soln [Artificial Tears] 1 drop OU QID 05/30/16 Amlodipine Besylate [Norvasc -] 10 mg PO DAILY tablet 07/20/16 Donepezil HCl [Aricept -] 5 mg PO HS tablet 07/20/16 Insulin Lispro [Humalog] 07/20/16 Insulin Sliding Scale [Novolog Vial Sliding Scale -] 1 vial SQ ACHS units 07/20 Memantine HCl [Namenda -] 10 mg PO HS tablet 07/20/16
== END 2016-06-01 18:45 | DRG 313 ==
LOC: JER 04:59 → JERBED 07:08 → UNDOADMOB 07:08 → INTOOBSV 07:08 → JERBED 14:44 → J4S 20:32 → OBSVTOIN 06-01 00:13
PROVIDERS: ADMIT Internal Medicine; ATTEND Internal Medicine
DX: R07.89 Other chest pain (principal); I50.23 Acute on chronic systolic (congestive) heart failure; I42.8 Other cardiomyopathies; E11.9 Type 2 diabetes mellitus without complications; E78.5 Hyperlipidemia, unspecified; I25.118 Atherosclerotic heart disease of native coronary artery with other forms of angina pectoris; K21.9 Gastro-esophageal reflux disease without esophagitis; F03.90 Unspecified dementia, unspecified severity, without behavioral disturbance, psychotic disturbance, mood disturbance, and anxiety; Z95.0 Presence of cardiac pacemaker; N40.0 Benign prostatic hyperplasia without lower urinary tract symptoms; G62.89 Other specified polyneuropathies; I11.0 Hypertensive heart disease with heart failure; Z86.711 Personal history of pulmonary embolism; Z86.718 Personal history of other venous thrombosis and embolism; Z87.891 Personal history of nicotine dependence
CPT/HCPCS: 36415; 71010-TC; 78452-TC; 80053; 82550; 84484; 85025; 85610; 93005; 93010; 93017; 93306-TC; 99285-25; A9502; G0378; J1245

== ENCOUNTER 2016-07-20 | Observation (INO) | payer OTHER ==
--- NOTE | 2016-07-20 00:11 | PDOC ---
History of Present Illness - General History Source: Patient, EMS <MattparrishJunior - Last Filed: 07/20/16 02:07> - General History Source: Patient, EMS, Shelter Records Exam Limitations: No Limitations - History of Present Illness Initial Comments: 07/20/16 00:26 The patient is a 75 year old male with significant past medical history of multiple admissions for chest pain, dementia, CHF, CAD, hypertension, hyperlipidemia, angina, pulmonary embolus, s/p pacemaker, diabetes, peripheral neuropathy, gerd, stroke and bph who presents to the ED BIBA from [facility] on the [facility] for chest pain prior to arrival. Patient describes chest pain as midsternal, nonradiating, 10/10 and occasionally intermittent, but now persistent. TX administered a sublingual nitroglycerine. An additional sublingual nitroglycerine was again administered by EMS as well as a baby aspirin. Patient reports associated diaphoresis and nausea, but no vomiting. Denies lightheadedness, jaw pain, shoulder pain, arm pain, or leg swelling. The patient denies fever, chills, cough, abdominal pain, diarrhea. Allergies: acetaminophen, oxycodone, keopoua-Vpw-Gmb reductase inhibitor Social History: No alcohol, tobacco, or drug use reported. Past Surgical History: s/p pacemaker PCP: Dr. Vani Rivero <Becky Peoples - Last Filed: 07/20/16 02:43> - General Chief Complaint: Chest Pain Stated Complaint: CHEST PAIN Time Seen by Provider: 07/20/16 00:11 Past History - Past Medical History Anemia: No Asthma: No Cancer: No Cardiac Disorders: Yes (angina, PE) COPD: No CHF: Yes Dementia: Yes (per record harm to self or others) Diabetes: Yes GI Disorders: No Disorders: Yes (BPH) HTN: Yes Hypercholesterolemia: Yes Liver Disease: No Seizures: No Thyroid Disease: No - Surgical History Abdominal Surgery: Yes Cardiac Surgery: Yes (PPM) Lung Surgery: No Neurologic Surgery: No - Psycho/Social/Smoking Cessation Hx Anxiety: No Suicidal Ideation: No Smoking History: Unknown if ever smoked Have you smoked in the past 12 months: No Information on smoking cessation initiated: No Hx Alcohol Use: No Drug/Substance Use Hx: No Substance Use Type: None Hx Substance Use Treatment: No <Junior Estrada - Last Filed: 07/20/16 02:07> <Becky Peoples - Last Filed: 07/20/16 02:43> - Past Medical History Allergies/Adverse Reactions: Allergies Allergy/AdvReac Type Severity Reaction Status Date / Time acetaminophen Allergy Verified 07/20/16 00:10 oxycodone Allergy Verified 07/20/16 00:10 Idvcikw-Vow-Bzk Reductase Allergy Verified 07/20/16 00:10 Inhibitor Home Medications: Ambulatory Orders Apixaban [Eliquis -] 2.5 mg PO BID 12/09/15 Nitroglycerin 0.4 mg SL PRN 12/09/15 Ranolazine [Ranexa] 500 mg PO BID 12/09/15 Tamsulosin HCl 0.4 mg PO HS 12/09/15 Timolol 0.5% [Timoptic 0.5%] 1 drop OU BID 12/10/15 Atropine 1% Ophth. Solution - 1 drop OD HS ml 12/31/15 Clopidogrel Bisulfate [Plavix -] 75 mg PO DAILY tablet 12/31/15 Donepezil HCl [Aricept -] 5 mg PO HS tablet 12/31/15 Isosorbide Mononitrate [Imdur -] 30 mg PO DAILY #30 tab.sr.24h 12/31/15 Memantine HCl [Namenda -] 10 mg PO HS tablet 12/31/15 Metoprolol Succinate [Toprol XL -] 50 mg PO DAILY tab.sr.24h 12/31/15 Amlodipine Besylate [Norvasc -] 10 mg PO DAILY 02/24/16 Clonazepam [Klonopin -] 0.5 mg PO BID 02/24/16 Gabapentin [Neurontin] 300 mg PO BID 02/24/16 Pantoprazole Sodium [Protonix -] 40 mg PO DAILY #30 tablet.ec 04/03/16 Dorzolamide HCl [Trusopt 2% -] 1 drop OD TID 05/30/16 Hypromellose 0.5% Opth Soln [Artificial Tears] 1 drop OU QID 05/30/16 Ibuprofen [Advil -] 200 mg PO Q6H PRN 05/30/16 Review of Systems - Review of Systems Able to Perform ROS?: Yes Comments:: 07/20/16 00:26 CONSTITUTIONAL: +diaphoresis Absent: fever, no chills, no fatigue EYES: Absent: visual changes ENT: Absent: ear pain, no sore throat CARDIOVASCULAR: +chest pain Absent: no palpitations RESPIRATORY: Absent: cough GI: +nausea Absent: abdominal pain, no vomiting, no constipation, no diarrhea GENITOURINARY: Absent: dysuria, no frequency, no hematuria MUSCULOSKELETAL: Absent: back pain, no arthralgia, no myalgia SKIN: Absent: rash NEURO: Absent: headache <Becky Peoples - Last Filed: 07/20/16 02:43> *Physical Exam - Vital Signs Last Vital Signs Temp Pulse Resp BP Pulse Ox 97.4 F L 72 18 135/102 98 07/20/16 00:07 07/20/16 00:07 07/20/16 00:07 07/20/16 00:07 07/20/16 00:07 <Junior Estrada - Last Filed: 07/20/16 02:07> - Vital Signs Last Vital Signs Temp Pulse Resp BP Pulse Ox 97.4 F L 72 18 135/102 98 07/20/16 00:07 07/20/16 00:07 07/20/16 00:07 07/20/16 00:07 07/20/16 00:07 - Physical Exam Comments: 07/20/16 00:26 GENERAL: Well developed, well nourished. Awake and alert. Mild distress. HEENT: Normocephalic, atraumatic. PERRLA, EOMI. No conjunctival pallor. Sclera are non- icteric. Dry mucous membranes. Oropharynx is clear. NECK: Supple. Full ROM. No JVD. Carotid pulses 2+ and symmetric, without bruits. No thyromegaly. No lymphadenopathy. CARDIOVASCULAR: Bradycardia. Regular rhythm. No murmurs, rubs, or gallops. Distal pulses are 2+ and symmetric. PULMONARY: Mild respiratory distress. Poor air exchange. Conversational dyspnea. Supraclavicular retractions. No wheezing, rales or rhonchi. ABDOMINAL: Soft. Non-tender. Non-distended. No rebound or guarding. Well healed midline scar. No organomegaly. Normoactive bowel sounds. MUSCULOSKELETAL Normal range of motion at all joints. No bony deformities or tenderness. No CVA tenderness. EXTREMITIES: No cyanosis. No clubbing. No edema. No calf tenderness. SKIN: Warm and dry. Normal capillary refill. No rashes. No jaundice. NEUROLOGICAL: Alert, awake, appropriate. Cranial nerves 2-12 intact. Moving all extremities. No gross focal neurological deficits. PSYCHIATRIC: Cooperative. Good eye contact. Appropriate mood and affect. <Becky Peoples - Last Filed: 07/20/16 02:43> Heart Score/ECG Review - ECG Impressions Comment:: 07/20/16 02:42 Atrial-paced rhythm with prolonged AV conduction @60bpm L axis deviation Septal infarct, age undetermined Inferior infarct, age undetermined Abnormal ECG <Becky Peoples - Last Filed: 07/20/16 02:43> ED Treatment Course - LABORATORY CBC & Chemistry Diagram: 07/20/16 00:30 07/20/16 00:30 <Junior Estrada - Last Filed: 07/20/16 02:07> - LABORATORY CBC & Chemistry Diagram: 07/20/16 00:30 07/20/16 00:30 <Becky Peoples - Last Filed: 07/20/16 02:43> Medical Decision Making - Medical Decision Making 07/20/16 01:57 Dr. Estrada: The scribe's documentation has been prepared under my direction and personally reviewed by me in its entirery. I confirm that the note above accurately reflects all work, treatment, procedures, and medical decision making performed by me. 07/20/16 02:07 Pt still having pain. Labs are stable at this time, Will admit for tele admission <Junior Estrada - Last Filed: 07/20/16 02:07> - Medical Decision Making 07/20/16 01:[address] Vani Rivero (via answering service) at 1:52 and patient's case was discussed. <Becky Peoples - Last Filed: 07/20/16 02:43> *DC/Admit/Observation/Transfer - Discharge Dispostion Admit: Yes <Junior Estrada - Last Filed: 07/20/16 02:07> - Attestations Scribe Attestion: 07/20/16 00:26 Documentation prepared by Becky Peoples, acting as medical records manager for Junior Estrada MD <Becky Peoples - Last Filed: 07/20/16 02:43> Diagnosis at time of Disposition: Chest pain
[2016-07-20] MEDS ORDERED: ASPIRIN 81 MG CHEWABLE TABLETS PO ONE (00:12)
[2016-07-20] MEDS ORDERED: METOPROLOL TARTRATE 5 MG/5 ML VIAL IVPUSH ONE (00:13)
[2016-07-20] MEDS ORDERED: NITROGLYCERIN 2% OINTMENT - 1GM PACKET TD ONE ×2 (00:13→00:52)
[2016-07-20] MEDS ORDERED: ASPIRIN 81 MG CHEWABLE TABLETS ONE (00:52)
[2016-07-20] MEDS ORDERED: METOPROLOL TARTRATE 5 MG/5 ML VIAL ONE (00:52)
[2016-07-20 01:18] LABS: BASOPHIL 0.9 % (0-2.0); EOSINOPHIL 1.6 % (0-4.5); MCH 29.9 pg (25.7-33.7); MEAN CELL VOLUME 90.5 fl (80-96); MEAN PLT VOLUME 9.9 fl (7.5-11.1); NEUTROPHILS 60.1 % (42.8-82.8); PLATELET COUNT 190 K/MM3 (134-434); RDW 14.7 % (11.9-15.9); WHITE BLOOD COUNT 7.9 K/mm3 (4.0-10.0)
[2016-07-20 01:30] LABS: INR 1.12 (0.82-1.09); PROTHROMBIN TIME (PATIENT) 12.3 SEC (9.98-11.88)
[2016-07-20 01:41] LABS: ALBUMIN 3.5 g/dl (3.4-5.0); BILIRUBIN,TOTAL 0.4 mg/dL (0.2-1.0); CALCIUM 9.3 mg/dL (8.5-10.1); COCKROFT - GAULT 44.35; CREATININE 1.5 mg/dL (0.7-1.3); MAGNESIUM 1.8 mg/dL (1.8-2.4); TOT PROT 6.8 g/dl (6.4-8.2)
[2016-07-20 01:43] LABS: TROPONIN I 0.03 ng/ml (0.00-0.05)
[2016-07-20] MEDS ORDERED: amLODIPine BESYLATE 10 MG TABLET (FP) PO ONE (01:57)
[2016-07-20] MEDS ORDERED: amLODIPine BESYLATE 5 MG TABLET (FP) ONE (02:21)
[2016-07-20 05:51] VITALS: BMI 24.8
[2016-07-20] MEDS ORDERED: NITROGLYCERIN SUBLINGUAL 1/150 0.4 MG TAB SL PRN ×2 (06:42→08:54)
[2016-07-20] MEDS: INSULIN SLIDING SCALE (NOVOLOG) 1 VIAL SQ SCH ×3 (06:55→16:47)
[2016-07-20] MEDS ORDERED: TAMSULOSIN HCL 0.4 MG CAP.ER.24H (FP) PO SCH ×2 (08:30→22:00)
[2016-07-20 08:35] LABS: BASOPHIL 0.7 % (0-2.0); EOSINOPHIL 1.2 % (0-4.5); MCH 30.5 pg (25.7-33.7); MCHC 33.5 g/dl (32.0-35.9); MEAN CELL VOLUME 91.2 fl (80-96); NEUTROPHILS 65.3 % (42.8-82.8); PLATELET COUNT 179 K/MM3 (134-434); RDW 14.5 % (11.9-15.9); WHITE BLOOD COUNT 8.5 K/mm3 (4.0-10.0)
--- NOTE | 2016-07-20 08:55 | CON.CARD ---
Consult Consult Specialty:: Cardiology Referred by:: Dr. Rivero Reason for Consultation:: Chest pain - History of Present Illness Chief Complaint: Chest pain History of Present Illness: 75 year old man with a history of HTN, HLD, DM II, CAD with cardiac cath showing (LM normal, pLAD patent prior stent, mLAD 30%, LCx mild, OM1 80% stenosis, pRCA 30%, dRCA 30%, RPL1 95% stenosis, LVEDP 18mmHg), underwent PCI with stent (reported BMS) of OM1 with successful revascularization., known cardiomyopathy, Echo done 10/19/15 showed diffuse hypokinesis of LV with visual EF approx 35-40%, LVH, mild MR. 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 Pt. was seen and examined this am in [facility]. He states he has been doing well at rehab without chest pain but states that he has been over exerting himself recently by lifting heavy objects. He states that he started feeling chest pain yesterday evening described as sharp, Left sternal, non-radiating, non-exertional, with no associated symptoms. He states the pain persisted all night and is still present at this time. No sob, palpitations, pnd, orthopnea, LE edema. No lightheadedness, dizziness, syncope, or near syncope. 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 [employer]: Yes: Dementia Cardio/Vascular: Yes: CAD, CHF, HTN, Hyperlipdemia, Other (PPM Cardiomyopathy) Gastrointestinal: Yes: GERD Renal/: Yes: Renal Failure, BPH Psych: Yes: Depression Musculoskeletal: Yes: Other (Peripheral neuropathy) Rheumatology: Yes: Other (Peripheral neuropathy) Endocrine: Yes: Diabetes Mellitus - Past Surgical History Past Surgical History: Yes: Permanent Pacemaker - Alcohol/Substance Use Hx Alcohol Use: No - Smoking History Smoking history: Unknown if ever smoked Have you smoked in the past 12 months: No - Social History Usual Living Arrangement: Residential ADL: Support Services History of Recent Travel: No Home Medications - Allergies Allergies/Adverse Reactions: Allergies Allergy/AdvReac Type Severity Reaction Status Date / Time acetaminophen Allergy Verified 07/20/16 00:10 oxycodone Allergy Verified 07/20/16 00:10 [id number] Reductase Allergy Verified 07/20/16 00:10 Inhibitor - Home Medications Home Medications: Ambulatory Orders Apixaban [Eliquis -] 2.5 mg PO BID 12/09/15 Nitroglycerin 0.4 mg SL PRN 12/09/15 Ranolazine [Ranexa] 500 mg PO BID 12/09/15 Tamsulosin HCl 0.4 mg PO HS 12/09/15 Timolol 0.5% [Timoptic 0.5%] 1 drop OU BID 12/10/15 Atropine 1% Ophth. Solution - 1 drop OD HS ml 12/31/15 Clopidogrel Bisulfate [Plavix -] 75 mg PO DAILY tablet 12/31/15 Donepezil HCl [Aricept -] 5 mg PO HS tablet 12/31/15 Isosorbide Mononitrate [Imdur -] 30 mg PO DAILY #30 tab.sr.24h 12/31/15 Memantine HCl [Namenda -] 10 mg PO HS tablet 12/31/15 Metoprolol Succinate [Toprol XL -] 50 mg PO DAILY tab.sr.24h 12/31/15 Amlodipine Besylate [Norvasc -] 10 mg PO DAILY 02/24/16 Clonazepam [Klonopin -] 0.5 mg PO BID 02/24/16 Gabapentin [Neurontin] 300 mg PO BID 02/24/16 Pantoprazole Sodium [Protonix -] 40 mg PO DAILY #30 tablet.ec 04/03/16 Dorzolamide HCl [Trusopt 2% -] 1 drop OD TID 05/30/16 Hypromellose 0.5% Opth Soln [Artificial Tears] 1 drop OU QID 05/30/16 Ibuprofen [Advil -] 200 mg PO Q6H PRN 05/30/16 Insulin Lispro [Humalog] 07/20/16 Family Disease History - Family Disease History Family History: Denies Review of Systems - Review of Systems Constitutional: denies: No Symptoms, Chills, Diaphoresis, Fever, Lethargy, Loss of Appetite, Malaise, Night Sweats, Unintentional Wgt. Loss, Weakness, Other Eyes: denies: No Symptoms, Blind Spots, Blurred Vision, Double Vision, Eye Pain , Floaters, Photophobia, Recent Change in Vision, Other HENT: denies: No Symptoms, Difficult Swallowing, Ear Discharge, Ear Pain, Epistaxis, Gingival Bleeding, Hearing Loss, Mouth Swelling, Nasal Congestion, Ocular Prosthesis, Throat Pain, Toothache, Ringing in Ears, Other Neck: denies: No Symptoms, Decreased ROM, Lumps, Pain on Movement, Stiffness, Swollen Glands, Tenderness, Other Cardiovascular: reports: Chest Pain. denies: No Symptoms, Edema, Palpitations, Shortness of Breath, Other Respiratory: denies: No Symptoms, Cough, Exercise Intolerance, Hemoptysis, Orthopnea, PND, Snoring, SOB, SOB on Exertion, Wheezing, Other Gastrointestinal: denies: No Symptoms, Abdominal Pain, Bloating, Constipation, Diarrhea, Dysphagia, Indigestion, Melena, Nausea, Rectal Bleeding, Vomiting, Vomiting Blood, Other Genitourinary: denies: No Symptoms, Burning, Discharge, Dysuria, Flank Pain, Frequency, Hematuria, Incontinence, Lesions, Menses, Pain, Testicular Mass, Testicular Pain, Testicular Swelling, Urgency, Vaginal Bleeding, Other Breasts: denies: No Symptoms Reported, See HPI, Breast Implants, Discharge from Nipple, Lumps, Pain, Skin Changes, Other Musculoskeletal: denies: No Symptoms, Back Pain, Crepitus, Decreased ROM, Extremity Pain, Joint Pain, Joint Swelling, Muscle Pain, Muscle Cramps, Muscle Weakness, Other Integumentary: denies: No Symptoms, Blister, Bruising, Change in Color, Eczema, Erythema, Incision, Lesions, Lump, Pallor, Pruritis, Rash, Wound, Other Neurological: denies: No Symptoms, Change in LOC, Change in Speech, Confusion, Dizziness, Headache, Incoordination, Numbness, Parasthesia, Pre-Existing Deficit , Seizure, Syncope, Tremors, Unsteady Gait, Weakness, Other Endocrine: denies: No Symptoms, Excessive Sweating, Flushing, Increased Hunger, Increased Thirst, Intolerance to Cold, Intolerance to Heat, Unexplained Weight Gain, Unexplained Weight Loss, Other Hematology/Lymphatic: denies: No Symptoms, Easily Bruised, Excessive Bleeding, Swollen Glands, Other Psychiatric: denies: No Symptoms, Altered Sleep Pattern, Anxiety, Depression, Hallucinations, Panic, Paranoia, Suicidal, Other - Risk Factors Known Risk Factors: Yes: Diabetes Mellitus, Hypercholesterolemia, Hypertension, Prior [place] /Emb Stroke Vital Signs: Vital Signs Temperature 98.0 F 07/20/16 04:30 Pulse Rate 60 07/20/16 04:30 Respiratory Rate 20 07/20/16 04:30 Blood Pressure 142/64 07/20/16 04:30 O2 Sat by Pulse Oximetry (%) 97 07/20/16 04:30 Constitutional: Yes: Well Nourished, No Distress, Calm Eyes: Yes: EOM Intact, PERRL, Other (right eye erythematous) HENT: Yes: WNL, Atraumatic, Normocephalic Neck: Yes: WNL, Supple, Trachea Midline Respiratory: Yes: WNL, Regular, CTA Bilaterally. No: Rales, Rhonchi, SOB, Wheezes Gastrointestinal: Yes: WNL, Normal Bowel Sounds, Soft. No: Distention, Tenderness Renal/: Yes: WNL Cardiovascular: Yes: WNL, Regular Rate and Rhythm. No: Bradycardia, Tachycardia , Pulse Irregular, Gallop, Rub, Varicosities JVD: No Carotid Bruit: No PMI: Non-Displaced Heart Sounds: Yes: S1, S2. No: Split S2, S3, S4, Clicks, Gallop, Rub, Bruit Murmur: No: Systolic Murmur, Diastolic Murmur Musculoskeletal: Yes: WNL Extremities: Yes: WNL Edema: No Peripheral Pulses WNL: Yes Peripheral Pulses: 2+ Left Doralis Pedis, 2+ Right Dorsalis Pedis Integumentary: Yes: WNL Neurological: Yes: WNL, Alert, Oriented, Cran Nerves II-XII Intact ...Motor Strength: WNL Psychiatric: Yes: WNL, Alert, Oriented - Other Data Labs, Other Data: INR, PTT INR 1.12 (0.82-1.09) 07/20/16 00:30 ekg-AV paced 60bpm Echo: Pending, Report Reviewed Prior Cardiac Procedures: Cardiac Catheterization, PTCA with Stent Ejection Fraction %: LVEF < 40 % Imaging - Results Chest X-ray: Report Reviewed, Image Reviewed EKG: Report Reviewed, Image Reviewed Other: Report Reviewed, Image Reviewed (tele-AV paced PVCs, NSR) Assessment/Plan 75 year old man with a history of HTN, HLD, DM II, CAD with cardiac cath showing (LM normal, pLAD patent prior stent, mLAD 30%, LCx mild, OM1 80% stenosis, pRCA 30%, dRCA 30%, RPL1 95% stenosis, LVEDP 18mmHg), underwent PCI with stent (reported BMS) of OM1 with successful revascularization., known cardiomyopathy, Echo done 10/19/15 showed diffuse hypokinesis of LV with visual EF approx 35-40%, LVH, mild MR. 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 Pt. was seen and examined this am in [facility]. He states he has been doing well at rehab without chest pain but states that he has been over exerting himself recently by lifting heavy objects. He states that he started feeling chest pain yesterday evening described as sharp, Left sternal, non-radiating, non-exertional, with no associated symptoms. He states the pain persisted all night and is still present at this time. Chest pain- atypical with recent cath and PCI as above and recent nuclear stress test 1 month ago showing no ischemia -unlikely ACS -cardiac enzymes wnl x 2 -hold statin for allergy -cont with Plavix 75mg and eliquis 2.5mg bid as he is >1month post PCI with BMS -cont Imdur 30mg daily and resume home Ranexa -cont Toprol -can check echo today to re-evaluate EF -no additional inpatient ischemic work up needed at this point -[facility] close outpatient follow up Cardiomyopathy-mixed non-ischemic and ischemic with moderate to severe LV systolic dysfunction -currently euvolemic, does not require diuresis -cont toprol -not on EDUARD-I/ARB presumed due to CKD, would likely benefit from initiation once establish a stable creatinine. This can be done as outpatient -can check echo today to re-evaluate EF -pt may be a candidate for upgrade of PPM to ICD, this can be done as outpatient Recurrent DVT/PE's -on eliquis
[2016-07-20 08:58] LABS: ALBUMIN 3.8 g/dl (3.4-5.0); BILIRUBIN,TOTAL 0.6 mg/dL (0.2-1.0); CALCIUM 9.3 mg/dL (8.5-10.1); COCKROFT - GAULT 49.31; CREATININE 1.3 mg/dL (0.7-1.3); TOT PROT 7.1 g/dl (6.4-8.2)
[2016-07-20] MEDS ORDERED: PT OWN MED DRAWER 7, Y5N ONE ×4 (08:58→16:34)
[2016-07-20 09:10] LABS: TROPONIN I 0.03 ng/ml (0.00-0.05)
[2016-07-20] MEDS: ARTIFICIAL TEARS (POLYVINYL ALCOHOL 1.4%) OPTH DROPS OD SCH ×2 (09:17→14:37)
[2016-07-20] MEDS ORDERED: IBUPROFEN 200 MG TABLET PO PRN (09:41)
[2016-07-20] MEDS ORDERED: NITROGLYCERIN SUBLINGUAL 1/150 0.4 MG TAB SL SCH (09:45)
[2016-07-20] MEDS ORDERED: TIMOLOL 0.5% OPHTHALMIC SOL 5 ML BOTTLE OU SCH (10:00)
[2016-07-20] MEDS ORDERED: PANTOPRAZOLE 40 MG TABLET (FP) PO SCH (10:00)
[2016-07-20] MEDS ORDERED: clonazePAM 0.5 MG TABLET PO SCH (10:00)
[2016-07-20] MEDS ORDERED: ISOSORBIDE MONONITRATE 30 MG TAB.SR.24H (FP) PO SCH ×2 (10:00)
[2016-07-20] MEDS ORDERED: amLODIPine BESYLATE 10 MG TABLET (FP) PO SCH (10:00)
[2016-07-20] MEDS ORDERED: amLODIPine BESYLATE 5 MG TABLET (FP) PO SCH (10:00)
[2016-07-20] MEDS ORDERED: APIXABAN 2.5 MG TABLET PO SCH (10:00)
[2016-07-20] MEDS ORDERED: CLOPIDOGREL BISULFATE 75 MG TABLET (FP) PO SCH (10:00)
[2016-07-20] MEDS ORDERED: RANOLAZINE E.R. 500 MG TABLET (FP) PO SCH ×2 (10:00)
[2016-07-20] MEDS ORDERED: GABAPENTIN 300 MG CAPSULE (FP) PO SCH ×2 (10:00)
[2016-07-20] MEDS ORDERED: METOPROLOL SUCCINATE 50 MG TAB.SR.24H (FP) PO SCH ×2 (10:00)
[2016-07-20] MEDS: ARTIFICIAL TEARS (POLYVINYL ALCOHOL 1.4%) OPTH DROPS OU SCH ×3 (10:17→18:16)
--- NOTE | 2016-07-20 13:28 | EKG ---
Test Reason : Blood Pressure : / mmHG Vent. Rate : 060 BPM Atrial Rate : 060 BPM P-R Int : 244 ms QRS Dur : 106 ms QT Int : 432 ms P-R-T Axes : 000 -55 007 degrees QTc Int : 432 ms POOR DATA QUALITY, INTERPRETATION MAY BE ADVERSELY AFFECTED UNDETERMINED RHYTHM LEFT AXIS DEVIATION SEPTAL INFARCT , AGE UNDETERMINED INFERIOR INFARCT , AGE UNDETERMINED ABNORMAL ECG Confirmed by NAHOMY TORRES MD ([id number]) on 07/20/2016 1:28:08 PM Referred By: Confirmed By:NAHOMY TORRES MD
[2016-07-20] MEDS ORDERED: DORZOLAMIDE 2% HCL OPHTHALMIC SOLUTION 10 ML BOTTLE OD SCH (14:00)
[2016-07-20 14:39] VITALS: TEMP 98
--- NOTE | 2016-07-20 17:23 | HP ---
Admitting History and Physical - Admission History of Present Illness: The patient is a 75 year old male with significant past medical history of multiple admissions for chest pain, dementia, CHF, CAD, hypertension, hyperlipidemia, angina, pulmonary embolus, s/p pacemaker, diabetes, peripheral neuropathy, gerd, stroke and bph who presents to the ED BIBA from [facility] on the [facility] for chest pain prior to arrival. Patient describes chest pain as midsternal, nonradiating, 10/10 and occasionally intermittent, but now persistent. AR administered a sublingual nitroglycerine. An additional sublingual nitroglycerine was again administered by EMS as well as a baby aspirin. Patient reports associated diaphoresis and nausea, but no vomiting. Denies lightheadedness, jaw pain, shoulder pain, arm pain, or leg swelling. 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: Dementia Cardiovascular: Yes: CAD, CHF, HTN, Hyperlipdemia, Other (PPM Cardiomyopathy) Gastrointestinal: Yes: GERD Renal/: Yes: Renal Failure, BPH Heme/Onc: Yes: Other (PE/DVT) Psych: Yes: Depression Musculoskeletal: Yes: Other (Peripheral neuropathy) Rheumatology: Yes: Other (Peripheral neuropathy) Endocrine: Yes: Diabetes Mellitus - Past Surgical History Past Surgical History: Yes: Permanent Pacemaker - Smoking History Smoking history: Unknown if ever smoked Have you smoked in the past 12 months: No - Alcohol/Substance Use Hx Alcohol Use: No - Social History ADL: Support Services History of Recent Travel: No Home Medications - Allergies Allergies/Adverse Reactions: Allergies Allergy/AdvReac Type Severity Reaction Status Date / Time acetaminophen Allergy Verified 07/20/16 00:10 oxycodone Allergy Verified 07/20/16 00:10 Akcnfbq-Jhe-Wjr Reductase Allergy Verified 07/20/16 00:10 Inhibitor - Home Medications Home Medications: Ambulatory Orders Apixaban [Eliquis -] 2.5 mg PO BID 12/09/15 Nitroglycerin 0.4 mg SL PRN 12/09/15 Ranolazine [Ranexa] 500 mg PO BID 12/09/15 Tamsulosin HCl 0.4 mg PO HS 12/09/15 Timolol 0.5% [Timoptic 0.5%] 1 drop OU BID 12/10/15 Atropine 1% Ophth. Solution - 1 drop OD HS ml 12/31/15 Clopidogrel Bisulfate [Plavix -] 75 mg PO DAILY tablet 12/31/15 Donepezil HCl [Aricept -] 5 mg PO HS tablet 12/31/15 Isosorbide Mononitrate [Imdur -] 30 mg PO DAILY #30 tab.sr.24h 12/31/15 Memantine HCl [Namenda -] 10 mg PO HS tablet 12/31/15 Metoprolol Succinate [Toprol XL -] 50 mg PO DAILY tab.sr.24h 12/31/15 Amlodipine Besylate [Norvasc -] 10 mg PO DAILY 02/24/16 Gabapentin [Neurontin] 300 mg PO BID 02/24/16 Pantoprazole Sodium [Protonix -] 40 mg PO DAILY #30 tablet.ec 04/03/16 Dorzolamide HCl [Trusopt 2% -] 1 drop OD TID 05/30/16 Hypromellose 0.5% Opth Soln [Artificial Tears] 1 drop OU QID 05/30/16 Amlodipine Besylate [Norvasc -] 10 mg PO DAILY tablet 07/20/16 Donepezil HCl [Aricept -] 5 mg PO HS tablet 07/20/16 Insulin Lispro [Humalog] 07/20/16 Insulin Sliding Scale [Novolog Vial Sliding Scale -] 1 vial SQ ACHS units 07/20 Memantine HCl [Namenda -] 10 mg PO HS tablet 07/20/16 Family Disease History - Family Disease History Family History: Unremarkable Review of Systems Findings/Remarks: See HPI Physical Examination Vital Signs: Vital Signs Temperature 98.0 F 07/20/16 13:41 Pulse Rate 67 07/20/16 13:41 Respiratory Rate 20 07/20/16 13:41 Blood Pressure 114/55 07/20/16 13:41 O2 Sat by Pulse Oximetry (%) 96 07/20/16 09:41 Constitutional: Yes: No Distress Eyes: Yes: WNL HENT: Yes: WNL Neck: Yes: WNL Cardiovascular: Yes: WNL, Regular Rate and Rhythm Respiratory: Yes: WNL, Regular, CTA Bilaterally Gastrointestinal: Yes: WNL, Normal Bowel Sounds Musculoskeletal: Yes: WNL Extremities: Yes: WNL Edema: No Neurological: Yes: WNL, Alert, Oriented ...Motor Strength: WNL Problem List - Problems (1) Chest pain Assessment/Plan: Admit to tele Serial cpk/troponin As per cardio Code(s): R07.9 - CHEST PAIN, UNSPECIFIED (2) BPH (benign prostatic hyperplasia) Code(s): N40.0 - BENIGN PROSTATIC HYPERPLASIA WITHOUT LOWER URINRY TRACT SYMP (3) CAD (coronary artery disease) Code(s): I25.10 - ATHSCL HEART DISEASE OF [place] CORONARY ARTERY W/O ANG PCTRS (4) Dementia Code(s): F03.90 - UNSPECIFIED DEMENTIA WITHOUT BEHAVIORAL DISTURBANCE Qualifiers: Dementia type: unspecified type Dementia behavioral disturbance: without behavioral disturbance Qualified Code(s): F03.90 - Unspecified dementia without behavioral disturbance (5) Diabetes mellitus type 2 in nonobese Code(s): E11.9 - TYPE 2 DIABETES MELLITUS WITHOUT COMPLICATIONS (6) GERD (gastroesophageal reflux disease) Code(s): K21.9 - GASTRO-ESOPHAGEAL REFLUX DISEASE WITHOUT ESOPHAGITIS (7) HLD (hyperlipidemia) Code(s): E78.5 - HYPERLIPIDEMIA, UNSPECIFIED (8) HTN (hypertension) Code(s): I10 - ESSENTIAL (PRIMARY) HYPERTENSION
[2016-07-20 19:40] VITALS: BP 133/62; PULSE 60
[2016-07-20] MEDS ORDERED: ATROPINE SO4 1% OPHTH SOLN 5 ML BOTTLE OD SCH (22:00)
[2016-07-20] MEDS ORDERED: MEMANTINE HCL 10 MG TABLET (FP) PO SCH ×2 (22:00)
[2016-07-20] MEDS ORDERED: DONEPEZIL HCL 5 MG TABLET (FP) PO SCH ×2 (22:00)
== END 2016-07-20 18:25 ==
LOC: JER → UNDOADMOB 01:50 → INTOOBSV 01:50 → JERBED 01:50 → UNDOADMIN 01:59 → JERBED 04:32 → J4S 04:32 → JERBED 09:41
PROVIDERS: ADMIT Internal Medicine; ATTEND Internal Medicine
PROC: 3E033GC Introduction of Other Therapeutic Substance into Peripheral Vein, Percutaneous Approach (ICD-10-PCS; principal; 2016-07-20)
DX: R07.9 Chest pain, unspecified (principal); F03.90 Unspecified dementia, unspecified severity, without behavioral disturbance, psychotic disturbance, mood disturbance, and anxiety; I50.9 Heart failure, unspecified; I25.10 Atherosclerotic heart disease of native coronary artery without angina pectoris; I10 Essential (primary) hypertension; E78.5 Hyperlipidemia, unspecified; E11.9 Type 2 diabetes mellitus without complications; N40.0 Benign prostatic hyperplasia without lower urinary tract symptoms; K21.9 Gastro-esophageal reflux disease without esophagitis; G62.9 Polyneuropathy, unspecified; Z86.711 Personal history of pulmonary embolism; Z95.0 Presence of cardiac pacemaker; Z86.73 Personal history of transient ischemic attack (TIA), and cerebral infarction without residual deficits; Z79.01 Long term (current) use of anticoagulants; N19 Unspecified kidney failure
CPT/HCPCS: 36415; 71010-TC; 80053; 82550; 83735; 84484; 85025; 85610; 93005; 93010; 93306-TC; 99285-25; G0378

== ENCOUNTER 2017-05-13 09:43 | Inpatient (IN) | payer OTHER ==
--- NOTE | 2017-05-13 09:56 | PDOC ---
History of Present Illness - General History Source: Patient Exam Limitations: Dementia - History of Present Illness Initial Comments: 05/13/17 11:53 The patient is a 76 year old male, with a significant past medical history of multiple admissions for chest pain, dementia, CHF, CAD, hypertension, hyperlipidemia, angina, pulmonary embolism, s/p pacemaker, diabetes, peripheral neuropathy, gerd, stroke and bph who presents to the ED BIBA from [facility] on the [place], who presents to the emergency department s/p unwitnessed mechanical fall , with diffuse right sided pain to the shoulder, chest, hip, and suprapubic region. He describes his pain as sharp, constant, and rating 9/10. Due to the patients dementia, he is a poor historian. As per patient, his pain worsens when moving. The patient does not remember the fall. As per senior living, the patient has fallen multiple times in the past three days. He denies any recent fevers, chills, headache or dizziness. He denies any recent nausea, vomit, diarrhea or constipation. He denies any recent chest pain or shortness of breath. He denies any recent dysuria, frequency, urgency or hematuria. Allergies: acetaminophen, oxycodone, wpwkuni-Ovr-Mdn reductase inhibitor Past surgical history: s/p pacemaker Social History: Nonsmoker. Denies EtOH use and recreational drug use. Primary Care Physician: Dr. Ezekiel Lawson <Rosanna Jiménez - Last Filed: 05/13/17 11:53> <Adriana Holley - Last Filed: 05/13/17 14:36> - General Chief Complaint: Injury Stated Complaint: FALL Time Seen by Provider: 05/13/17 09:50 Past History <Rosanna Jiménez - Last Filed: 05/13/17 11:53> - Past Medical History Anemia: No Asthma: No Cancer: No Cardiac Disorders: Yes (angina, PE) COPD: No CHF: Yes Dementia: Yes (per record harm to self or others) Diabetes: Yes (type 2) GI Disorders: No Disorders: Yes (BPH) HTN: Yes Hypercholesterolemia: Yes Liver Disease: No Seizures: No Thyroid Disease: No - Surgical History Abdominal Surgery: Yes Cardiac Surgery: Yes (PPM) Lung Surgery: No Neurologic Surgery: No - Immunization History Immunization Up to Date: Yes - Suicide/Smoking/Psychosocial Hx Smoking History: Unknown if ever smoked Have you smoked in the past 12 months: No Hx Alcohol Use: No Drug/Substance Use Hx: No Substance Use Type: None Hx Substance Use Treatment: No <Adriana Holley - Last Filed: 05/13/17 14:36> - Past Medical History Allergies/Adverse Reactions: Allergies Allergy/AdvReac Type Severity Reaction Status Date / Time acetaminophen Allergy Verified 05/13/17 09:59 oxycodone Allergy Verified 05/13/17 09:59 Clpnxji-Cas-Srj Reductase Allergy Verified 05/13/17 09:59 Inhibitor Home Medications: Ambulatory Orders Apixaban [Eliquis -] 2.5 mg PO BID 12/09/15 Ranolazine [Ranexa] 500 mg PO BID 12/09/15 Tamsulosin HCl 0.4 mg PO HS 12/09/15 Isosorbide Mononitrate [Imdur -] 30 mg PO DAILY #30 tab.sr.24h 12/31/15 Metoprolol Succinate [Toprol XL -] 50 mg PO DAILY tab.sr.24h 12/31/15 Gabapentin [Neurontin] 300 mg PO BID 02/24/16 Dorzolamide HCl [Trusopt 2% -] 1 drop OD TID 05/30/16 Hypromellose 0.5% Opth Soln [Artificial Tears] 1 drop OU QID 05/30/16 Donepezil HCl [Aricept -] 5 mg PO HS tablet 07/20/16 Memantine HCl [Namenda -] 10 mg PO HS tablet 07/20/16 Brimonidine Tartrate/Timolol [Combigan Eye Drops] 2 drop OP BID 05/13/17 Citalopram Hydrobromide [Celexa -] 10 mg PO DAILY 05/13/17 Clonazepam [Klonopin] 0.5 mg PO TID 05/13/17 Latanoprost 0.005% Eye Drops [Xalatan 0.005% Eye Drops -] 1 drop OP HS 05/13/17 Memantine HCl [Namenda -] 10 mg PO HS 05/13/17 Metolazone 2.5 mg PO DAILY 05/13/17 Torsemide [Demadex] 60 mg PO DAILY 05/13/17 Review of Systems - Review of Systems Able to Perform ROS?: Yes Comments:: 05/13/17 11:54 GENERAL/CONSTITUTIONAL: No fever or chills. No weakness. HEAD, EYES, EARS, NOSE AND THROAT: No change in vision. No ear pain or discharge. No sore throat. GASTROINTESTINAL: No nausea, vomiting, diarrhea or constipation. GENITOURINARY: No dysuria, frequency, or change in urination. CARDIOVASCULAR: No chest pain or shortness of breath. RESPIRATORY: No cough, wheezing, or hemoptysis. MUSCULOSKELETAL: +Diffuse right sided pain to the shoulder, chest, and suprapubic region. SKIN: No rash NEUROLOGIC: No headache, vertigo, loss of consciousness, or change in strength/ sensation. ENDOCRINE: No increased thirst. No abnormal weight change. HEMATOLOGIC/LYMPHATIC: No anemia, easy bleeding, or history of blood clots. ALLERGIC/IMMUNOLOGIC: No hives or skin allergy. All Other Systems: Reviewed and Negative <Rosanna Jiménez - Last Filed: 05/13/17 11:53> *Physical Exam - Vital Signs Last Vital Signs Temp Pulse Resp BP Pulse Ox 97.3 F L 60 18 122/57 100 05/13/17 09:47 05/13/17 09:47 05/13/17 09:47 05/13/17 09:47 05/13/17 09:47 - Physical Exam Comments: 05/13/17 11:54 Constitutional: Awake, alert, oriented. No acute distress. Head: Normocephalic. Atraumatic Eyes: +Right eye haze.. Left eye 3 reactive. Conjunctivae are not pale. ENT: +Dry mucous membranes. Posterior pharynx without exudate or erythema. Uvula midline. Neck: Supple. Full ROM. No lymphadenopathy. Cardiovascular: Regular rate. Regular rhythm. S1, S2 regular. Distal pulses are 2+ and symmetric. Pulmonary/Chest: No evidence of respiratory distress. Clear to auscultation bilaterally No wheezing, rales or rhonchi. Abdominal: Soft and non-distended. There is no tenderness. No rebound, guarding or rigidity. No organomegaly. No palpable masses. Good bowel sounds. Back: No CVA tenderness. Musculoskeletal: +Right shoulder tenderness to the clavicle and right chest wall. Right suprapubic tenderness. Right hip tenderness. No edema. No cyanosis. No clubbing. Full range of motion in all extremities. No calf tenderness. Radial/pedal pulses are intact and 2+ bilaterally Skin: Skin is warm and dry. No petechiae. No purpura. Neurological: Alert and oriented to person, place, and time. Cranial nerves II -XII are grossly intact. Normal speech. Strength is grossly symmetric. No sensory deficits. Psychiatric: Good eye contact. Normal interaction, affect and behavior. <Rosanna Jiménez - Last Filed: 05/13/17 11:53> Heart Score/ECG Review - ECG Intrepretation Comment:: 05/13/17 10:55 paced at 60, no acute changes <Adriana Holley - Last Filed: 05/13/17 14:36> ED Treatment Course - LABORATORY CBC & Chemistry Diagram: 05/13/17 10:54 05/13/17 10:54 - ADDITIONAL ORDERS Additional order review: Laboratory Results 05/13/17 05/13/17 10:54 10:54 Sodium 136 Potassium 3.2 L Chloride 89 L D Carbon Dioxide 38 H D Anion Gap 9 BUN 46 H D Creatinine 2.6 H D Creat Clearance w eGFR 24.18 Random Glucose 188 H D Calcium 9.4 Magnesium 2.7 H D Total Bilirubin 0.6 AST 50 H D ALT 27 Alkaline Phosphatase 75 Total Protein 7.3 Albumin 3.6 Urine Color Straw Urine Appearance Clear Urine pH 7.0 Ur Specific Thornton 1.006 Urine Protein Negative Urine Glucose (UA) Negative Urine Ketones Negative Urine Blood Negative Urine Nitrite Negative Urine Bilirubin Negative Urine Urobilinogen Negative Ur Leukocyte Esterase Trace Urine WBC (Auto) 1 Urine RBC (Auto) None 05/13/17 10:54 RBC 4.88 MCV 91.9 MCHC 33.4 RDW 13.7 MPV 10.3 Neutrophils % 69.0 Lymphocytes % 21.0 Monocytes % 7.9 Eosinophils % 1.7 Basophils % 0.4 - Medications Given in the ED: ED Medications Discontinued Medications Generic Name Dose Route Start Last Admin Trade Name Freq PRN Reason Stop Dose Admin Gabapentin 300 mg 05/13/17 10:42 05/13/17 11:01 Neurontin - PO 05/13/17 10:43 300 mg ONCE ONE Administration Sodium Chloride 1,000 ml 05/13/17 10:41 05/13/17 10:55 Normal Saline - IV 02/18/18 10:42 1,000 ml ONCE ONE Administration <Rosanna Jiménez - Last Filed: 05/13/17 11:53> - LABORATORY CBC & Chemistry Diagram: 05/13/17 10:54 05/13/17 10:54 <Adriana Holley - Last Filed: 05/13/17 14:36> Medical Decision Making - Medical Decision Making 05/13/17 10:55 a/p: 76yo male with multiple falls over 2 days -hit his head - on eliquis -pt demented and poor historia -c/o r shoulder pain -c/o R rib pain -neck pain-lateral, no step offs, deformities, no midline ttp -will check xrays, ct, labs -pt dehydrated on exam -will give ivf hydration, monitor and reassess 05/13/17 12:25 pt with KAYLEY on labs ivf hydration running will most likely need obs for repeat labs and monitoring of kidney function 05/13/17 13:33 xrays reviewed and no acute fractures visualized ct head and c spine negative for acute findings old chronic findings in head and neck will keep in obs for KAYLEY 05/13/17 14:[address] Sofia accepts pt to service pt from [facility] <Adriana Holley - Last Filed: 05/13/17 14:36> *DC/Admit/Observation/Transfer - Attestations Scribe Attestion: 05/13/17 11:55 Documentation prepared by Rosanna Jiménez, acting as medical reimbursement specialist for Adriana Hollye DO. <Rosanna Jiménez - Last Filed: 05/13/17 11:53> - Discharge Dispostion Admit: Yes - Attestations Physician Attestion: 05/13/17 13:34 I, Dr. Adriana Holley DO, attest that this document has been prepared under my direction and personally reviewed by me in its entirety. I further attest, that it accurately reflects all work, treatment, procedures and medical decision -making performed by me. <Adriana Holley - Last Filed: 05/13/17 14:36> Diagnosis at time of Disposition: KAYLEY (acute kidney injury) - Discharge Dispostion Condition at time of disposition: Fair - Referrals Referrals: Ezekiel Lawson MD [Primary Care Provider] -
[2017-05-13] MEDS ORDERED: SODIUM CHLORIDE 0.9% 1000 ML INFUS.BAG IV ONE (10:41)
[2017-05-13] MEDS ORDERED: GABAPENTIN 300 MG CAPSULE (FP) PO ONE (10:42)
[2017-05-13] MEDS ORDERED: GABAPENTIN 100 MG CAPSULE (FP) ONE (11:01)
--- NOTE | 2017-05-13 11:07 | EKG ---
Test Reason : Blood Pressure : / mmHG Vent. Rate : 060 BPM Atrial Rate : 060 BPM P-R Int : 308 ms QRS Dur : 152 ms QT Int : 512 ms P-R-T Axes : -10 -66 035 degrees QTc Int : 512 ms Atrial-paced rhythm with prolonged AV conduction LEFT AXIS DEVIATION NON-SPECIFIC INTRA-VENTRICULAR CONDUCTION BLOCK POSSIBLE LATERAL INFARCT , AGE UNDETERMINED INFERIOR INFARCT (CITED ON OR BEFORE 20-JUL-2016) ABNORMAL ECG WHEN COMPARED WITH ECG OF 20-JUL-2016 00:03, SIGNIFICANT CHANGES HAVE OCCURRED Confirmed by NAHOMY TORRES MD ([id number]) on 05/13/2017 11:06:40 AM Referred By: Confirmed By:NAHOMY TORRES MD
[2017-05-13 11:33] LABS: ALBUMIN 3.6 g/dl (3.4-5.0); ANION GAP 9 (8-16); BILIRUBIN,TOTAL 0.6 mg/dL (0.2-1.0); BLOOD UREA NITROGEN 46 mg/dL (7-18); CALCIUM 9.4 mg/dL (8.5-10.1); CHLORIDE 89 mmol/L (98-107); CO2 38 mmol/L (21-32); CREATININE 2.6 mg/dL (0.7-1.3); GLUCOSE,RANDOM 188 mg/dL (74-106); SGPT/ALT 27 U/L (12-78); SODIUM 136 mmol/L (136-145); TOT PROT 7.3 g/dl (6.4-8.2)
[2017-05-13 11:34] LABS: ALK PHOS 75 U/L (45-117)
[2017-05-13 11:35] LABS: MAGNESIUM 2.7 mg/dL (1.8-2.4); POTASSIUM 3.2 mmol/L (3.5-5.1); SGOT/AST 50 U/L (15-37)
[2017-05-13 11:36] LABS: BASO % 0.4 % (0-2.0); EOS % 1.7 % (0-4.5); HEMATOCRIT 44.8 % (35.4-49); MCH 30.7 pg (25.7-33.7); MCHC 33.4 g/dl (32.0-35.9); MEAN CELL VOLUME 91.9 fl (80-96); MEAN PLT VOLUME 10.3 fl (7.5-11.1); MONO % 7.9 % (3.8-10.2); PLATELET COUNT 180 K/MM3 (134-434); RBC 4.88 M/mm3 (4.00-5.60); RDW 13.7 % (11.9-15.9); WHITE BLOOD COUNT 10.2 K/mm3 (4.0-10.0)
[2017-05-13 11:37] LABS: URINE APPEARANCE CLEAR; URINE BILIRUBIN NEGATIVE (NEGATIVE); URINE BLOOD NEGATIVE (NEGATIVE); URINE COLOR STRAW; URINE GLUCOSE (UA) NEGATIVE (NEGATIVE); URINE KETONE NEGATIVE (NEGATIVE); URINE LEUK ESTERASE TRACE (NEGATIVE); URINE NITRITE NEGATIVE (NEGATIVE); URINE PROTEIN NEGATIVE (NEGATIVE); URINE UROBILINOGEN NEGATIVE mg/dL (0.2-1.0)
[2017-05-13 11:48] LABS: INR 1.17 (0.82-1.09); PROTHROMBIN TIME (PATIENT) 13.2 SEC (9.98-11.88)
[2017-05-13 11:51] LABS: ACTIVATED PTT 32.1 SECONDS (26.9-34.4)
--- NOTE | 2017-05-13 14:26 | HP ---
<Dolly Mckeon - Last Filed: 05/13/17 16:34> CHIEF COMPLAINT: s/p fall PCP: Dr Lawson HISTORY OF PRESENT ILLNESS: This is a 76 yo M, with a PMH of dementia, CHF, CAD, s/p pacemaker, multiple admissions for angina, HTN, HLD, PE, DM, peripheral neuropathy, GERD, CVA, BPH, who presented from [facility] s/p unwitnessed fall. Patient complains of R sided shoulder pain that is still present but on initial assessment also complained of chest, hip, and suprapubic region (now resolved). Shoulder pain is dull constant and aggravated by movement, 9/10 nonradiating. Patient is a very poor historian, he answers all questions, is oriented to self but not to time or place and does not recall the fall. [facility] records indicate frequent falls x 3 days. ER course was notable for: (1) R shoulder, head and neck imaging (2)labs (3)IVF Recent Travel: denies PAST MEDICAL HISTORY: as above PAST SURGICAL HISTORY: s/p pacemaker Social History: [place] resident Smoking: not currently Alcohol: none Drugs: none Family History: unknown Allergies acetaminophen Allergy (Verified 05/13/17 09:59) oxycodone Allergy (Verified 05/13/17 09:59) Tdypkhs-Cav-Wgp Reductase Inhibitor Allergy (Verified 05/13/17 09:59) HOME MEDICATIONS: Home Medications Medication Instructions Recorded Apixaban [Eliquis -] 2.5 mg PO BID 12/09/15 Ranolazine [Ranexa] 500 mg PO BID 12/09/15 Tamsulosin HCl 0.4 mg PO HS 12/09/15 Isosorbide Mononitrate [Imdur -] 30 mg PO DAILY #30 tab.sr.24h 12/31/15 Metoprolol Succinate [Toprol XL -] 50 mg PO DAILY tab.sr.24h 12/31/15 Gabapentin [Neurontin] 300 mg PO BID 02/24/16 Dorzolamide HCl [Trusopt 2% -] 1 drop OD TID 05/30/16 Hypromellose 0.5% Opth Soln 1 drop OU QID 05/30/16 [Artificial Tears] Donepezil HCl [Aricept -] 5 mg PO HS tablet 07/20/16 Memantine HCl [Namenda -] 10 mg PO HS tablet 07/20/16 Brimonidine Tartrate/Timolol 2 drop OP BID 05/13/17 [Combigan Eye Drops] Citalopram Hydrobromide [Celexa -] 10 mg PO DAILY 05/13/17 Clonazepam [Klonopin] 0.5 mg PO TID 05/13/17 Latanoprost 0.005% Eye Drops 1 drop OP HS 05/13/17 [Xalatan 0.005% Eye Drops -] Memantine HCl [Namenda -] 10 mg PO HS 05/13/17 Metolazone 2.5 mg PO DAILY 05/13/17 Torsemide [Demadex] 60 mg PO DAILY 05/13/17 REVIEW OF SYSTEMS unable to obtain PHYSICAL EXAMINATION Vital Signs - 24 hr 05/13/17 09:47 Temperature 97.3 F L Pulse Rate 60 Respiratory 18 Rate Blood Pressure 122/57 O2 Sat by Pulse 100 Oximetry (%) GENERAL: Awake, alert, oriented to self only HEAD: Normal with no signs of trauma. nontender, full rom EYES: R eye with injected [id number], tearing, edema on eye lid, purulent discharge. perrla. EARS, NOSE, THROAT: somewhat dry mucous membranes. NECK: supple LUNGS: Breath sounds equal, clear to auscultation bilaterally. HEART: Regular rate and rhythm, normal S1 and S2 ABDOMEN: Soft, nontender, not distended, normoactive bowel sounds, no guarding, no rebound, no masses. MUSCULOSKELETAL: No CVA tenderness. UPPER EXTREMITIES: 2+ pulses, warm, well-perfused. No peripheral edema. + R shoulder pain, no bony abnormality LOWER EXTREMITIES: 1+ pulses, warm, well-perfused. No calf tenderness. No peripheral edema. NEUROLOGICAL: Cranial nerves II-XII intact. Normal speech. PSYCHIATRIC: Cooperative. Good eye contact. Appropriate mood and affect. SKIN: Warm, dry, Laboratory Results - last 24 hr 05/13/17 05/13/17 05/13/17 10:54 10:54 10:54 WBC RBC Hgb Hct MCV MCH MCHC RDW Plt Count MPV Neutrophils % Lymphocytes % Monocytes % Eosinophils % Basophils % PT with INR 13.20 H INR 1.17 H PTT (Actin FS) 32.1 Sodium 136 Potassium 3.2 L Chloride 89 L D Carbon Dioxide 38 H D Anion Gap 9 BUN 46 H D Creatinine 2.6 H D Creat Clearance w eGFR 24.18 Random Glucose 188 H D Calcium 9.4 Magnesium 2.7 H D Total Bilirubin 0.6 AST 50 H D ALT 27 Alkaline Phosphatase 75 Total Protein 7.3 Albumin 3.6 Urine Color Straw Urine Appearance Clear Urine pH 7.0 Ur Specific Melba 1.006 Urine Protein Negative Urine Glucose (UA) Negative Urine Ketones Negative Urine Blood Negative Urine Nitrite Negative Urine Bilirubin Negative Urine Urobilinogen Negative Ur Leukocyte Esterase Trace Urine WBC (Auto) 1 Urine RBC (Auto) None 05/13/17 10:54 WBC 10.2 H RBC 4.88 Hgb 15.0 Hct 44.8 MCV 91.9 MCH 30.7 MCHC 33.4 RDW 13.7 Plt Count 180 MPV 10.3 Neutrophils % 69.0 Lymphocytes % 21.0 Monocytes % 7.9 Eosinophils % 1.7 Basophils % 0.4 PT with INR INR PTT (Actin FS) Sodium Potassium Chloride Carbon Dioxide Anion Gap BUN Creatinine Creat Clearance w eGFR Random Glucose Calcium Magnesium Total Bilirubin AST ALT Alkaline Phosphatase Total Protein Albumin Urine Color Urine Appearance Urine pH Ur Specific Melba Urine Protein Urine Glucose (UA) Urine Ketones Urine Blood Urine Nitrite Urine Bilirubin Urine Urobilinogen Ur Leukocyte Esterase Urine WBC (Auto) Urine RBC (Auto) ASSESSMENT/PLAN: This is a 76 yo M, with a PMH of dementia, CHF, CAD, s/p pacemaker, multiple admissions for angina, HTN, HLD, PE, DM, peripheral neuropathy, GERD, CVA, BPH, who presented from [facility] s/p unwitnessed fall. s/p unwitnessed fall -imaging begative for fracture or intracraneal hemorrhage. KAYLEY on CKD -appears to be pre renal bun/creat 46/2.6, baseline 1.4 -likely overdiuresed. will hold metollazone 2.5 d, volume contraction alkalosis with hypokalemia -gentle isotonic ivf volume repletion -K riders x 3 -f/u lytes Prolonged Qtc -512; told ssri, avoid aggravating agents -repeat EKG in the evening R eye conjunctivitis -possibly bacterial -polytrip drops glaucoma -resume torzolamide, lantoprost drops CAD -resume toprol xl 50 d CHF -resume imdur 30 d, torsemide 60 d HTN -meds as above History of PE -imaging negative for bleed, resume eliquis; given history of fall and dementia , it is questionable whether benefits outweigh the risks. HLD -f/u lipid panel -allergic to statin DM -bgm, ISS ACHS -f/u a1c Peripheral neuropathy -resume gabapentin for neuropathy Dementia -resume aricept, ranexa, hold ssri (selexa 10 d) BPH -resume flomax FEN NS @ 50 f/u k, bicarb dabetic na restricted diet eliquis, diet Obs m/s Problem List - Problem (1) Fall Code(s): W19.XXXA - UNSPECIFIED FALL, INITIAL ENCOUNTER (2) Conjunctivitis Code(s): H10.9 - UNSPECIFIED CONJUNCTIVITIS (3) Glaucoma Code(s): H40.9 - UNSPECIFIED GLAUCOMA (4) Shoulder pain, right Code(s): M25.511 - PAIN IN RIGHT SHOULDER (5) History of pulmonary embolism Code(s): Z86.711 - PERSONAL HISTORY OF PULMONARY EMBOLISM (6) Acute on chronic systolic CHF (congestive heart failure), NYHA class 3 Code(s): I50.23 - ACUTE ON CHRONIC SYSTOLIC (CONGESTIVE) HEART FAILURE (7) Atypical chest pain Code(s): R07.89 - OTHER CHEST PAIN (8) BPH (benign prostatic hyperplasia) Code(s): N40.0 - BENIGN PROSTATIC HYPERPLASIA WITHOUT LOWER URINRY TRACT SYMP (9) CAD (coronary artery disease) Code(s): I25.10 - ATHSCL HEART DISEASE OF [place] CORONARY ARTERY W/O ANG PCTRS (10) CHF (congestive heart failure) Code(s): I50.9 - HEART FAILURE, UNSPECIFIED (11) Dementia Code(s): F03.90 - UNSPECIFIED DEMENTIA WITHOUT BEHAVIORAL DISTURBANCE QualifierTitle: Dementia type: unspecified type Dementia behavioral disturbance: without behavioral disturbance Qualified Code(s): F03.90 - Unspecified dementia without behavioral disturbance (12) Diabetes mellitus type 2 in nonobese Code(s): E11.9 - TYPE 2 DIABETES MELLITUS WITHOUT COMPLICATIONS (13) GERD (gastroesophageal reflux disease) Code(s): K21.9 - GASTRO-ESOPHAGEAL REFLUX DISEASE WITHOUT ESOPHAGITIS (14) History of permanent cardiac pacemaker placement Code(s): Z95.0 - PRESENCE OF CARDIAC PACEMAKER (15) History of stroke Code(s): Z86.73 - PRSNL HX OF TIA (TIA), AND CEREB INFRC W/O RESID DEFICITS (16) HLD (hyperlipidemia) Code(s): E78.5 - HYPERLIPIDEMIA, UNSPECIFIED (17) HTN (hypertension) Code(s): I10 - ESSENTIAL (PRIMARY) HYPERTENSION Visit type - Emergency Visit Emergency Visit: Yes ED Registration Date: 05/13/17 Care time: The patient presented to the Emergency Department on the above date and was hospitalized for further evaluation of their emergent condition. - New Patient This patient is new to me today: Yes Date on this admission: 05/13/17 - Critical Care Critical Care patient: No <Travis Kim - Last Filed: 05/13/17 19:12> Patient is confused, unable to get any history. REVIEW OF SYSTEMS: severely demented unable to get information CBCD WBC 10.2 K/mm3 (4.0-10.0) H 05/13/17 10:54 RBC 4.88 M/mm3 (4.00-5.60) 05/13/17 10:54 Hgb 15.0 GM/dL (11.7-16.9) 05/13/17 10:54 Hct 44.8 % (35.4-49) 05/13/17 10:54 MCV 91.9 fl (80-96) 05/13/17 10:54 MCHC 33.4 g/dl (32.0-35.9) 05/13/17 10:54 RDW 13.7 % (11.9-15.9) 05/13/17 10:54 Plt Count 180 K/MM3 (134-434) 05/13/17 10:54 MPV 10.3 fl (7.5-11.1) 05/13/17 10:54 CMP Sodium 136 mmol/L (136-145) 05/13/17 10:54 Potassium 3.2 mmol/L (3.5-5.1) L 05/13/17 10:54 Chloride 89 mmol/L (98-107) L D 05/13/17 10:54 Carbon Dioxide 38 mmol/L (21-32) H D 05/13/17 10:54 Anion Gap 9 (8-16) 05/13/17 10:54 BUN 46 mg/dL (7-18) H D 05/13/17 10:54 Creatinine 2.6 mg/dL (0.7-1.3) H D 05/13/17 10:54 Creat Clearance w eGFR 24.18 (>60) 05/13/17 10:54 Random Glucose 188 mg/dL (74-106) H D 05/13/17 10:54 Calcium 9.4 mg/dL (8.5-10.1) 05/13/17 10:54 Total Bilirubin 0.6 mg/dL (0.2-1.0) 05/13/17 10:54 AST 50 U/L (15-37) H D 05/13/17 10:54 ALT 27 U/L (12-78) 05/13/17 10:54 Alkaline Phosphatase 75 U/L (45-117) 05/13/17 10:54 Total Protein 7.3 g/dl (6.4-8.2) 05/13/17 10:54 Albumin 3.6 g/dl (3.4-5.0) 05/13/17 10:54 Current Medications Generic Name Dose Route Start Last Admin Trade Name Freq PRN Reason Stop Dose Admin Acetaminophen 650 mg 05/13/17 15:48 Tylenol - PO Q4H PRN PAIN LEVEL 1 - 3 Apixaban 2.5 mg 05/13/17 22:00 Eliquis - PO BID ROXANNA Citalopram Hydrobromide 10 mg 05/13/17 16:15 05/13/17 18:34 Celexa - PO Not Given DAILY ROXANNA Donepezil HCl 5 mg 05/13/17 22:00 Aricept - PO HS ROXANNA Dorzolamide HCl 1 drop 05/13/17 22:00 Trusopt 2% OD TID ROXANNA Gabapentin 300 mg 05/13/17 22:00 Neurontin - PO BID ROXANNA Sodium Chloride 1,000 mls @ 150 mls/hr 05/13/17 14:30 05/13/17 15:32 Normal Saline - IV 150 mls/hr ASDIR ROXANNA Administration Potassium Chloride 30 meq/ 315 mls @ 88.333 mls/hr 05/13/17 16:15 05/13/17 18 :34 Sodium Chloride IVPB 05/13/17 19:48 88.333 mls/hr ONCE ONE Administration Insulin Aspart 1 vial 05/13/17 16:30 05/13/17 18:14 Novolog Vial Sliding Scale - SQ Not Given ACHS ROXANNA Protocol Isosorbide Mononitrate 30 mg 05/13/17 17:00 05/13/17 18:34 Imdur - PO 30 mg DAILY ROXANNA Administration Latanoprost 1 drop 05/13/17 22:00 Xalatan 0.005% Eye Drops - OU HS ROXANNA Memantine 10 mg 05/13/17 22:00 Namenda - PO HS ROXANNA Metolazone 2.5 mg 05/13/17 17:00 Zaroxolyn - PO DAILY ROXANNA Metoprolol Succinate 50 mg 05/13/17 17:00 05/13/17 18:35 Toprol Xl - PO 50 mg DAILY [facility] Administration Polymyxin/Trimethoprim Sulfate 1 drop 05/13/17 18:00 05/13/17 18:35 Polytrim Opthalmic Solution - OD Not Given Q4HWA [facility] Ranolazine 500 mg 05/13/17 22:00 Ranexa - PO BID ROXANNA Tamsulosin HCl 0.4 mg 05/13/17 22:00 Flomax - PO HS ROXANNA Torsemide 60 mg 05/14/17 10:00 Demadex - PO DAILY [facility] Home Medications Medication Instructions Recorded Apixaban [Eliquis -] 2.5 mg PO BID 12/09/15 Ranolazine [Ranexa] 500 mg PO BID 12/09/15 Tamsulosin HCl 0.4 mg PO HS 12/09/15 Isosorbide Mononitrate [Imdur -] 30 mg PO DAILY #30 tab.sr.24h 12/31/15 Metoprolol Succinate [Toprol XL -] 50 mg PO DAILY tab.sr.24h 12/31/15 Gabapentin [Neurontin] 300 mg PO BID 02/24/16 Dorzolamide HCl [Trusopt 2% -] 1 drop OD TID 05/30/16 Hypromellose 0.5% Opth Soln 1 drop OU QID 05/30/16 [Artificial Tears] Donepezil HCl [Aricept -] 5 mg PO HS tablet 07/20/16 Memantine HCl [Namenda -] 10 mg PO HS tablet 07/20/16 Brimonidine Tartrate/Timolol 2 drop OP BID 05/13/17 [Combigan Eye Drops] Citalopram Hydrobromide [Celexa -] 10 mg PO DAILY 05/13/17 Clonazepam [Klonopin] 0.5 mg PO TID 05/13/17 Latanoprost 0.005% Eye Drops 1 drop OP HS 05/13/17 [Xalatan 0.005% Eye Drops -] Memantine HCl [Namenda -] 10 mg PO HS 05/13/17 Metolazone 2.5 mg PO DAILY 05/13/17 Torsemide [Demadex] 60 mg PO DAILY 05/13/17 A/P: # ARF with a baseline of creatinine 1.5 , will hold off diuretics for now, will start IVF 75cc/hr # Hx of CHF stable now, will hold off the diuretics for now # Hx of Afib on Eliquis s/p fall , Ct neg. for bleed.
[2017-05-13] MEDS ORDERED: SODIUM CHLORIDE 1,000 ML IV SCH ×3 (14:30→19:09)
[2017-05-13] MEDS: KCL 10 MEQ IVPB 10 MEQ/100 ML INFUS.BAG IVPB SCH ×2 (15:32→16:50)
[2017-05-13] MEDS ORDERED: KCL 10 MEQ IVPB 20 MEQ/200 ML INFUS.BAG IVPB ONE (15:32)
[2017-05-13] MEDS ORDERED: POTASSIUM CHLORIDE 30 MEQ in SODIUM CHLORIDE 300 ML IVPB ONE (16:15)
[2017-05-13] MEDS ORDERED: METOLAZONE 2.5 MG TABLET (FP) PO SCH (17:00)
[2017-05-13] MEDS: INSULIN SLIDING SCALE (NOVOLOG) 1 VIAL SQ SCH (18:14)
[2017-05-13] MEDS: CITALOPRAM HYDROBROMIDE 10 MG TABLET (FP) PO SCH (18:34)
[2017-05-13] MEDS: ISOSORBIDE MONONITRATE 30 MG TAB.SR.24H (FP) PO SCH (18:34)
[2017-05-13] MEDS: POLYMYXIN B SULFATE/TMP 10 ML OPHTHALMIC SOLUTION OD SCH ×2 (18:35→22:21)
[2017-05-13] MEDS ORDERED: AZITHROMYCIN 1% OPHTH SOLN 1 BOTTLE OD SCH (22:00)
[2017-05-13] MEDS: DONEPEZIL HCL 5 MG TABLET (FP) PO SCH (22:22)
[2017-05-13] MEDS: GABAPENTIN 300 MG CAPSULE (FP) PO SCH (22:22)
[2017-05-13] MEDS: MEMANTINE HCL 10 MG TABLET (FP) PO SCH (22:22)
[2017-05-13] MEDS: APIXABAN 2.5 MG TABLET PO SCH (22:22)
[2017-05-13] MEDS: TAMSULOSIN HCL 0.4 MG CAP.ER.24H (FP) PO SCH (22:22)
[2017-05-13] MEDS: DORZOLAMIDE 2% HCL OPHTHALMIC SOLUTION 10 ML BOTTLE OD SCH (22:23)
[2017-05-13] MEDS: LATANOPROST 0.005% OPHTH SOLN 2.5ML BOTTLE OU SCH (22:23)
[2017-05-13] MEDS: RANOLAZINE E.R. 500 MG TABLET (FP) PO SCH (22:24)
[2017-05-14] MEDS: INSULIN SLIDING SCALE (NOVOLOG) 1 VIAL SQ SCH ×5 (00:21→21:09)
[2017-05-14] MEDS: POLYMYXIN B SULFATE/TMP 10 ML OPHTHALMIC SOLUTION OD SCH ×5 (05:53→21:16)
[2017-05-14] MEDS: DORZOLAMIDE 2% HCL OPHTHALMIC SOLUTION 10 ML BOTTLE OD SCH ×3 (05:54→22:20)
[2017-05-14 08:05] LABS: BASO % 0.6 % (0-2.0); EOS % 4.3 % (0-4.5); HEMATOCRIT 43.2 % (35.4-49); HEMOGLOBIN 14.4 GM/dL (11.7-16.9); LYMPH % 23.6 % (8-40); MCH 30.8 pg (25.7-33.7); MCHC 33.3 g/dl (32.0-35.9); MEAN CELL VOLUME 92.5 fl (80-96); MEAN PLT VOLUME 10.1 fl (7.5-11.1); NEUT % 60.5 % (42.8-82.8); PLATELET COUNT 171 K/MM3 (134-434); RBC 4.67 M/mm3 (4.00-5.60); RDW 14.2 % (11.9-15.9); WHITE BLOOD COUNT 8.2 K/mm3 (4.0-10.0)
[2017-05-14 08:36] LABS: ANION GAP 9 (8-16); BLOOD UREA NITROGEN 42 mg/dL (7-18); CALCIUM 8.8 mg/dL (8.5-10.1); CHLORIDE 99 mmol/L (98-107); CO2 34 mmol/L (21-32); GLUCOSE,RANDOM 134 mg/dL (74-106); MAGNESIUM 2.5 mg/dL (1.8-2.4); POTASSIUM 3.1 mmol/L (3.5-5.1); SODIUM 142 mmol/L (136-145)
[2017-05-14 08:38] LABS: PHOSPHOROUS 2.6 mg/dL (2.5-4.9)
[2017-05-14 09:11] LABS: CHOLESTEROL 276 mg/dL (50-200); TRIGLYCERIDES 209 mg/dL (35-160)
[2017-05-14 09:15] LABS: HDL CHOLESTEROL 66 mg/dL (40-60); LDL CHOLESTEROL (ONLY SJRH) 163 mg/dL (5-100)
--- NOTE | 2017-05-14 09:57 | PN ---
Physical Exam: SUBJECTIVE: Patient seen and examined Patient is comfortable with no acute distress. OBJECTIVE: Vital Signs Temperature 98.0 F 05/14/17 08:15 Pulse Rate 76 05/14/17 08:15 Respiratory Rate 18 05/14/17 08:15 Blood Pressure 116/77 05/14/17 08:15 O2 Sat by Pulse Oximetry (%) 98 05/14/17 08:15 ENERAL: The patient is awake, alert, and fully oriented, in no acute distress. HEAD: Normal with no signs of trauma. EYES: PERRL, extraocular movements intact, sclera anicteric, conjunctiva clear. No ptosis. ENT: Ears normal, nares patent, oropharynx clear without exudates, moist mucous membranes. NECK: Trachea midline, full range of motion, supple. LUNGS: Breath sounds equal, clear to auscultation bilaterally, no wheezes, no crackles, no accessory muscle use. HEART: Regular rate and rhythm, S1, S2 without murmur, rub or gallop. ABDOMEN: Soft, nontender, nondistended, normoactive bowel sounds, no guarding, no rebound, no hepatosplenomegaly, no masses. EXTREMITIES: 2+ pulses, warm, well-perfused, no edema. NEUROLOGICAL: Cranial nerves II through XII grossly intact. Normal speech, gait not observed. PSYCH: Normal mood, normal affect. SKIN: Warm, dry, normal turgor, no rashes or lesions noted CBCD WBC 8.2 K/mm3 (4.0-10.0) 05/14/17 06:00 RBC 4.67 M/mm3 (4.00-5.60) 05/14/17 06:00 Hgb 14.4 GM/dL (11.7-16.9) 05/14/17 06:00 Hct 43.2 % (35.4-49) 05/14/17 06:00 MCV 92.5 fl (80-96) 05/14/17 06:00 MCHC 33.3 g/dl (32.0-35.9) 05/14/17 06:00 RDW 14.2 % (11.9-15.9) 05/14/17 06:00 Plt Count 171 K/MM3 (134-434) 05/14/17 06:00 MPV 10.1 fl (7.5-11.1) 05/14/17 06:00 CMP Sodium 142 mmol/L (136-145) 05/14/17 06:00 Potassium 3.1 mmol/L (3.5-5.1) L 05/14/17 06:00 Chloride 99 mmol/L (98-107) D 05/14/17 06:00 Carbon Dioxide 34 mmol/L (21-32) H 05/14/17 06:00 Anion Gap 9 (8-16) 05/14/17 06:00 BUN 42 mg/dL (7-18) H 05/14/17 06:00 Creatinine 2.0 mg/dL (0.7-1.3) H D 05/14/17 06:00 Creat Clearance w eGFR 24.18 (>60) 05/13/17 10:54 Random Glucose 134 mg/dL (74-106) H D 05/14/17 06:00 Calcium 8.8 mg/dL (8.5-10.1) 05/14/17 06:00 Total Bilirubin 0.6 mg/dL (0.2-1.0) 05/13/17 10:54 AST 50 U/L (15-37) H D 05/13/17 10:54 ALT 27 U/L (12-78) 05/13/17 10:54 Alkaline Phosphatase 75 U/L (45-117) 05/13/17 10:54 Total Protein 7.3 g/dl (6.4-8.2) 05/13/17 10:54 Albumin 3.6 g/dl (3.4-5.0) 05/13/17 10:54 Current Medications Generic Name Dose Route Start Last Admin Trade Name Freq PRN Reason Stop Dose Admin Acetaminophen 650 mg 05/13/17 15:48 Tylenol - PO Q4H PRN PAIN LEVEL 1 - 3 Apixaban 2.5 mg 05/13/17 22:00 05/13/17 22:22 Eliquis - PO 2.5 mg BID ROXANNA Administration Citalopram Hydrobromide 10 mg 05/13/17 16:15 05/13/17 18:34 Celexa - PO Not Given on hold DAILY ROXANNA Donepezil HCl 5 mg 05/13/17 22:00 05/13/17 22:22 Aricept - PO 5 mg HS ROXANNA Administration Dorzolamide HCl 1 drop 05/13/17 22:00 05/14/17 05:54 Trusopt 2% OD 1 drop TID ROXANNA Administration Gabapentin 300 mg 05/13/17 22:00 05/13/17 22:22 Neurontin - PO 300 mg BID ROXANNA Administration Insulin Aspart 1 vial 05/13/17 16:30 05/14/17 07:00 Novolog Vial Sliding Scale - SQ Not Given ACHS [facility] Protocol Isosorbide Mononitrate 30 mg 05/13/17 17:00 05/13/17 18:34 Imdur - PO 30 mg DAILY ROXANNA Administration Latanoprost 1 drop 05/13/17 22:00 05/13/17 22:23 Xalatan 0.005% Eye Drops - OU 1 drop HS [facility] Administration Memantine 10 mg 05/13/17 22:00 05/13/17 22:22 Namenda - PO 10 mg HS [facility] Administration Metolazone 2.5 mg 05/13/17 17:00 Zaroxolyn - PO DAILY [facility] Metoprolol Succinate 50 mg 05/13/17 17:00 05/13/17 18:35 Toprol Xl - PO 50 mg DAILY [facility] Administration Polymyxin/Trimethoprim Sulfate 1 drop 05/13/17 18:00 05/14/17 05:54 Polytrim Opthalmic Solution - OD Not Given Q4HWA [facility] Ranolazine 500 mg 05/13/17 22:00 05/13/17 22:24 Ranexa - PO 500 mg BID [facility] Administration Tamsulosin HCl 0.4 mg 05/13/17 22:00 05/13/17 22:22 Flomax - PO 0.4 mg HS [facility] Administration Torsemide 60 mg 05/14/17 10:00 Demadex - PO stopped today 05/14/2017 DAILY [facility] Home Medications Medication Instructions Recorded Apixaban [Eliquis -] 2.5 mg PO BID 12/09/15 Ranolazine [Ranexa] 500 mg PO BID 12/09/15 Tamsulosin HCl 0.4 mg PO HS 12/09/15 Isosorbide Mononitrate [Imdur -] 30 mg PO DAILY #30 tab.sr.24h 12/31/15 Metoprolol Succinate [Toprol XL -] 50 mg PO DAILY tab.sr.24h 12/31/15 Gabapentin [Neurontin] 300 mg PO BID 02/24/16 Dorzolamide HCl [Trusopt 2% -] 1 drop OD TID 05/30/16 Hypromellose 0.5% Opth Soln 1 drop OU QID 05/30/16 [Artificial Tears] Donepezil HCl [Aricept -] 5 mg PO HS tablet 07/20/16 Memantine HCl [Namenda -] 10 mg PO HS tablet 07/20/16 Brimonidine Tartrate/Timolol 2 drop OP BID 05/13/17 [Combigan Eye Drops] Citalopram Hydrobromide [Celexa -] 10 mg PO DAILY 05/13/17 Clonazepam [Klonopin] 0.5 mg PO TID 05/13/17 Latanoprost 0.005% Eye Drops 1 drop OP HS 05/13/17 [Xalatan 0.005% Eye Drops -] Memantine HCl [Namenda -] 10 mg PO HS 05/13/17 Metolazone 2.5 mg PO DAILY 05/13/17 Torsemide [Demadex] 60 mg PO DAILY 05/13/17 A/P: This is a 76 yo M, with a PMH of dementia, CHF, CAD, s/p pacemaker, multiple admissions for angina, HTN, HLD, PE, DM, peripheral neuropathy, GERD, CVA, BPH, who presented from [facility] s/p unwitnessed fall. # Fall unwitnessed imaging negative for fracture or intracranial hemorrhage. # KAYLEY on CKD with bun/creat 46/2.6, baseline 1.4 , Metazolone and Torsemide is on hold #Prolonged Qtc 512; hold Celexa for now, repeat EKG in am # Acute hypokalemia replete with kdur # R eye conjunctivitis possibly bacterial ; Polytrim eye drops #Hx of glaucoma on Xalatan continue #CAD continue toprol xl 50 d #CHF resume imdur 30 d, torsemide 60 d #HTN continue meds # Hx of PE resume eliquis; given history of fall and dementia, it is questionable whether benefits outweigh the risks. #HLD f/u lipid panel , allergic to statin # DM, bgm, ISS ACHS # Hx of Peripheral neuropathy resume gabapentin for neuropathy # Hx of Dementia resume aricept, ranexa, hold ssri (celexa 10 d) #BPH hx resume flomax Visit type - Emergency Visit Emergency Visit: Yes ED Registration Date: 05/15/17 Care time: The patient presented to the Emergency Department on the above date and was hospitalized for further evaluation of their emergent condition. - New Patient This patient is new to me today: Yes Date on this admission: 05/14/17 - Critical Care Critical Care patient: No - Discharge Referral Referred to [facility] No
[2017-05-14] MEDS ORDERED: TORSEMIDE 20 MG TABLET (FP) PO SCH (10:00)
[2017-05-14] MEDS ORDERED: SODIUM CHLORIDE 0.45% 1,000 ML IV SCH (10:15)
[2017-05-14] MEDS: ISOSORBIDE MONONITRATE 30 MG TAB.SR.24H (FP) PO SCH (10:34)
[2017-05-14] MEDS: RANOLAZINE E.R. 500 MG TABLET (FP) PO SCH ×2 (10:34→21:16)
[2017-05-14] MEDS: APIXABAN 2.5 MG TABLET PO SCH ×2 (10:34→22:21)
[2017-05-14] MEDS: GABAPENTIN 300 MG CAPSULE (FP) PO SCH ×2 (10:34→21:16)
[2017-05-14] MEDS ORDERED: PT OWN MED DRAWER 7, Y5N ONE (12:20)
[2017-05-14 18:42] VITALS: BMI 26.6
[2017-05-14] MEDS: TAMSULOSIN HCL 0.4 MG CAP.ER.24H (FP) PO SCH (21:16)
[2017-05-14] MEDS: MEMANTINE HCL 10 MG TABLET (FP) PO SCH (21:16)
[2017-05-14] MEDS: DONEPEZIL HCL 5 MG TABLET (FP) PO SCH (21:16)
[2017-05-14] MEDS: ACETAMINOPHEN 325 MG TABLET (FP) PO PRN (21:19)
[2017-05-14] MEDS: LATANOPROST 0.005% OPHTH SOLN 2.5ML BOTTLE OU SCH (22:20)
--- NOTE | 2017-05-14 23:17 | EKG ---
Test Reason : Blood Pressure : / mmHG Vent. Rate : 060 BPM Atrial Rate : 060 BPM P-R Int : 312 ms QRS Dur : 148 ms QT Int : 454 ms P-R-T Axes : 025 -64 037 degrees QTc Int : 454 ms Atrial-paced rhythm with prolonged AV conduction LEFT AXIS DEVIATION NON-SPECIFIC INTRA-VENTRICULAR CONDUCTION BLOCK POSSIBLE LATERAL INFARCT (CITED ON OR BEFORE 22-JAN-2016) ABNORMAL ECG WHEN COMPARED WITH ECG OF 13-MAY-2017 10:25, NO SIGNIFICANT CHANGE WAS FOUND Confirmed by KATE PATRICK MD ([id number]) on 05/14/2017 11:17:26 PM Referred By: Confirmed By:KATE PATRICK MD
[2017-05-15] MEDS: POLYMYXIN B SULFATE/TMP 10 ML OPHTHALMIC SOLUTION OD SCH ×5 (05:37→21:10)
[2017-05-15] MEDS: DORZOLAMIDE 2% HCL OPHTHALMIC SOLUTION 10 ML BOTTLE OD SCH ×3 (05:37→21:11)
[2017-05-15] MEDS: ACETAMINOPHEN 325 MG TABLET (FP) PO PRN (05:38)
[2017-05-15] MEDS: INSULIN SLIDING SCALE (NOVOLOG) 1 VIAL SQ SCH ×4 (06:02→21:13)
[2017-05-15] MEDS ORDERED: PT OWN MED DRAWER 7, Y5N ONE ×2 (10:04→14:25)
[2017-05-15] MEDS: GABAPENTIN 300 MG CAPSULE (FP) PO SCH ×2 (10:06→21:11)
[2017-05-15] MEDS: RANOLAZINE E.R. 500 MG TABLET (FP) PO SCH ×2 (10:06→21:11)
[2017-05-15] MEDS: APIXABAN 2.5 MG TABLET PO SCH ×2 (10:06→21:11)
[2017-05-15] MEDS: ISOSORBIDE MONONITRATE 30 MG TAB.SR.24H (FP) PO SCH (10:06)
--- NOTE | 2017-05-15 12:38 | CONSULT ---
Consultation: REQUESTING PROVIDER: Dr. Kim CONSULT REQUEST: We have been asked to medically evaluate this patient for KAYLEY on CKD. HISTORY OF PRESENT ILLNESS: Patient is a 76 year old male with a PMHx of Dementia, Systolic CHF, CAD s/p pacemaker, HTN, HLD, PE, NIDDM II, peripheral neuropathy, GERD, CVA, BPH who was BIBEMS from [facility] s/p unwitnessed mechanical fall. Patient was complaining of right sided pain which included the shoulders, chest and hip. According to medical records, patient has had multiple falls in the last three days. Imaging was done in the ED which revealed no acute fractures or bleeding. Labs however revealed KAYLEY with a BUN/CR of 46/2.6 and patient was given fluids. We were consulted to evaluate patient for KAYLEY. Patient has dementia and poor historian. PMHx: Dementia, Systolic CHF, CAD s/p pacemaker, HTN, HLD, PE, NIDDM II, peripheral neuropathy, GERD, CVA, BPH PSHx: Pacemaker placement Social: Denies smoking, alcohol, drugs REVIEW OF SYSTEMS: Unable to obtain PHYSICAL EXAMINATION Vital Signs - 24 hr 05/14/17 05/14/17 05/14/17 14:00 18:00 18:16 Temperature 98.5 F 97.6 F Pulse Rate 60 61 Respiratory 20 20 Rate Blood Pressure 108/88 135/60 O2 Sat by Pulse 96 Oximetry (%) 05/14/17 05/14/17 05/15/17 22:00 23:50 06:00 Temperature 98.7 F 97.5 F L Pulse Rate 66 Respiratory 20 Rate Blood Pressure 128/78 O2 Sat by Pulse 97 Oximetry (%) 05/15/17 08:00 Temperature 98 F Pulse Rate 59 L Respiratory 18 Rate Blood Pressure 147/59 O2 Sat by Pulse Oximetry (%) GENERAL: Awake, alert, oriented to self only HEAD: Normal with no signs of trauma. EYES: Right eye haziness. PERRRL EARS, NOSE, THROAT: Dry mucous membranes. NECK: Normal range of motion, supple without lymphadenopathy LUNGS: CTA Bilaterally, No wheezes, and no crackles. No accessory muscle use. HEART: Regular rate and rhythm, normal S1 and S2. ABDOMEN: Soft, nontender, not distended, normoactive bowel sounds, no guarding, no rebound, no masses. MUSCULOSKELETAL: No CVA tenderness. UPPER EXTREMITIES: 2+ pulses, warm, well-perfused. No peripheral edema. Limited ROM of right shoulder but with no bone abnormality or hematoma. LOWER EXTREMITIES: No peripheral edema. NEUROLOGICAL: Cranial nerves II-XII intact. Normal speech. Sensory intact throughout PSYCHIATRIC: Confused and demented SKIN: Warm, dry, normal turgor, no rashes or lesions noted. Laboratory Results - last 24 hr 05/14/17 05/14/17 05/15/17 16:56 21:09 05:33 POC Glucometer 169 132 137 05/15/17 11:36 POC Glucometer 152 Active Medications Generic Name Dose Route Start Last Admin Trade Name Freq PRN Reason Stop Dose Admin Acetaminophen 650 mg 05/13/17 15:48 05/15/17 05:38 Tylenol - PO 650 mg Q4H PRN Administration PAIN LEVEL 1 - 3 Apixaban 2.5 mg 05/13/17 22:00 05/15/17 10:06 Eliquis - PO 2.5 mg BID ROXANNA Administration Citalopram Hydrobromide 10 mg 05/13/17 16:15 05/13/17 18:34 Celexa - PO Not Given DAILY ROXANNA Clonazepam 0.5 mg 05/15/17 14:00 Klonopin - PO TID ROXANNA Donepezil HCl 5 mg 05/13/17 22:00 05/14/17 21:16 Aricept - PO 5 mg HS ROXANNA Administration Dorzolamide HCl 1 drop 05/13/17 22:00 05/15/17 05:37 Trusopt 2% OD 1 drop TID ROXANNA Administration Gabapentin 300 mg 05/13/17 22:00 05/15/17 10:06 Neurontin - PO 300 mg BID ROXANNA Administration Insulin Aspart 1 vial 05/13/17 16:30 05/15/17 11:37 Novolog Vial Sliding Scale - SQ 2 unit ACHS R[facility]NA Administration Protocol Isosorbide Mononitrate 30 mg 05/13/17 17:00 05/15/17 10:06 Imdur - PO 30 mg DAILY [facility]NA Administration Latanoprost 1 drop 05/13/17 22:00 05/14/17 22:20 Xalatan 0.005% Eye Drops - OU 1 drop HS [facility] Administration Memantine 10 mg 05/13/17 22:00 05/14/17 21:16 Namenda - PO 10 mg HS [facility]NA Administration Metolazone 2.5 mg 05/13/17 17:00 Zaroxolyn - PO DAILY ROX[facility]NA Metoprolol Succinate 50 mg 05/13/17 17:00 05/15/17 10:06 Toprol Xl - PO 50 mg DAILY [facility] Administration Polymyxin/Trimethoprim Sulfate 1 drop 05/13/17 18:00 05/15/17 10:06 Polytrim Opthalmic Solution - OD 1 drop Q4HWA [facility] Administration Ranolazine 500 mg 05/13/17 22:00 05/15/17 10:06 Ranexa - PO 500 mg BID [facility]NA Administration Tamsulosin HCl 0.4 mg 05/13/17 22:00 05/14/17 21:16 Flomax - PO 0.4 mg HS [facility]NA Administration IMPRESSION: 1. KAYLEY 2. CKD 3. Hypokalemia 4. S/P Mechanical fall 5. Systolic CHF 6. CAD s/p pacemaker 7. History of Pulmonary Embolism 8. NIDDMII 9. HTN 10. HLD 11. BPH 12. History of CVA PLAN: -Patient has baseline creatinine around 1.4. Today BUN/Creatinine improving. Patient appeared hypovolemic and is likely pre-renal. -Will need to repeat labs today to evaluate BMP and magnesium. Will need light hydration if creatinine worsens -Will need renal/kidney U/S -Repeat potassium levels and replete if low -Continue to hold Nephrotoxic medications Toresemide and Metolazone. May resume Toresemide tomorrow -Continue daily BMP Dispo: We will continue to follow the patient. Thank you for this consultative opportunity. Mattie Sun [id number] Visit type - Emergency Visit Emergency Visit: Yes ED Registration Date: 05/15/17 Care time: The patient presented to the Emergency Department on the above date and was hospitalized for further evaluation of their emergent condition. - New Patient This patient is new to me today: Yes Date on this admission: 05/15/17 - Critical Care Critical Care patient: No
--- NOTE | 2017-05-15 13:25 | PN ---
Physical Exam: SUBJECTIVE: Patient seen and examined at bedside. pt was confused and agitated over night, pausy vest was applied. pt os AAOx 1 to person only. OBJECTIVE: Vital Signs Period Temp Pulse Resp BP Sys/Muñoz Pulse Ox Last 24 Hr 97.5 F-98.7 F 59-66 18-20 108-147/59-88 96-97 GENERAL: AAOx1 in NAD HEAD: NC/AT EYES: sclera anicteric ENT: moist mucous membrane NECK: Supple, no JVD LUNGS: CTA B/L, no crackles no wheezing no accessory muscle use. HEART: RRR, NSR, normal s1, s2, murmur , noM/ R/G ABDOMEN: Soft, ND, NT, +BS 4 Q, no CVA Tenderness LOWER EXTREMITIES: no edema, +2 pulse,anterior huitron skin pigmentation. NEUROLOGICAL: No focal deficit. Normal speech. gait not observed. PSYCHIATRIC: Cooperative. Good eye contact. Appropriate mood and affect. SKIN: Warm, dry, Laboratory Results - last 24 hr 05/14/17 05/14/17 05/15/17 16:56 21:09 05:33 POC Glucometer 169 132 137 05/15/17 11:36 POC Glucometer 152 Active Medications Generic Name Dose Route Start Last Admin Trade Name Freq PRN Reason Stop Dose Admin Acetaminophen 650 mg 05/13/17 15:48 05/15/17 05:38 Tylenol - PO 650 mg Q4H PRN Administration PAIN LEVEL 1 - 3 Apixaban 2.5 mg 05/13/17 22:00 05/15/17 10:06 Eliquis - PO 2.5 mg BID ROXANNA Administration Citalopram Hydrobromide 10 mg 05/13/17 16:15 05/13/17 18:34 Celexa - PO Not Given DAILY ROXANNA Clonazepam 0.5 mg 05/15/17 14:00 Klonopin - PO TID ROXANNA Donepezil HCl 5 mg 05/13/17 22:00 05/14/17 21:16 Aricept - PO 5 mg HS ROXANNA Administration Dorzolamide HCl 1 drop 05/13/17 22:00 05/15/17 05:37 Trusopt 2% OD 1 drop TID ROXANNA Administration Gabapentin 300 mg 05/13/17 22:00 05/15/17 10:06 Neurontin - PO 300 mg BID ROXANNA Administration Insulin Aspart 1 vial 02/18/18 16:30 05/15/17 11:37 Novolog Vial Sliding Scale - SQ 2 unit ACHS ROXANNA Administration Protocol Isosorbide Mononitrate 30 mg 05/13/17 17:00 05/15/17 10:06 Imdur - PO 30 mg DAILY ROXANNA Administration Latanoprost 1 drop 05/13/17 22:00 05/14/17 22:20 Xalatan 0.005% Eye Drops - OU 1 drop HS ROXANNA Administration Memantine 10 mg 05/13/17 22:00 05/14/17 21:16 Namenda - PO 10 mg HS ROXANNA Administration Metolazone 2.5 mg 05/13/17 17:00 Zaroxolyn - PO DAILY ROXANNA Metoprolol Succinate 50 mg 05/13/17 17:00 05/15/17 10:06 Toprol Xl - PO 50 mg DAILY ROXANNA Administration Polymyxin/Trimethoprim Sulfate 1 drop 05/13/17 18:00 05/15/17 10:06 Polytrim Opthalmic Solution - OD 1 drop Q4HWA ROXANNA Administration Ranolazine 500 mg 05/13/17 22:00 05/15/17 10:06 Ranexa - PO 500 mg BID ROXANNA Administration Tamsulosin HCl 0.4 mg 05/13/17 22:00 05/14/17 21:16 Flomax - PO 0.4 mg HS ROXANNA Administration CBC, BMP 05/14/17 06:00 05/15/17 13:15 ASSESSMENT/PLAN: This is a 76 yo M, with a PMH of dementia, CHF, CAD, s/p pacemaker, multiple admissions for angina, HTN, HLD, PE, DM, peripheral neuropathy, GERD, CVA, BPH, who presented from [facility] s/p unwitnessed fall. #s/p unwitnessed fall * imaging negative for fracture or intracraneal hemorrhage. #KAYLEY on CKD likey pre renal * bun/creat 46/2.6, baseline 1.4 * will hold metollazone 2.5 daily # hypokalemia * gentle isotonic ivf volume repletion * K riders x 3 * monitor lytes #Prolonged Qtc * 512; told ssri, avoid aggravating agents * repeat EKG in the evening #R eye conjunctivitis * possibly bacterial * polytrip drops #glaucoma * resume torzolamide, lantoprost drops #CAD * resume toprol xl 50 d #CHF * resume imdur 30 d, torsemide 60 d #HTN * meds as above #History of PE * imaging negative for bleed, resume eliquis; given history of fall and dementia , it is questionable whether benefits outweigh the risks. #HLD * allergic to statin #DM * BGM, ISS ACHS * f/u HgbA1c #Peripheral neuropathy * resume gabapentin for neuropathy #Dementia * resume aricept, ranexa, hold ssri (selexa 10 d) #BPH * resume flomax #FEN * NS @ 50 * f/u k, bicarb * dabetic NA controlled diet # DVTs proph * eliquis, diet # Dispo * admit to med-surg Visit type - Emergency Visit Emergency Visit: Yes ED Registration Date: 05/15/17 Care time: The patient presented to the Emergency Department on the above date and was hospitalized for further evaluation of their emergent condition. - New Patient This patient is new to me today: Yes Date on this admission: 05/15/17 - Critical Care Critical Care patient: No
[2017-05-15 13:59] LABS: ANION GAP 8 (8-16); BLOOD UREA NITROGEN 36 mg/dL (7-18); CALCIUM 9.1 mg/dL (8.5-10.1); CHLORIDE 102 mmol/L (98-107); CO2 33 mmol/L (21-32); CREATININE 1.7 mg/dL (0.7-1.3); GLUCOSE,RANDOM 121 mg/dL (74-106); POTASSIUM 3.2 mmol/L (3.5-5.1); SODIUM 143 mmol/L (136-145)
[2017-05-15] MEDS: clonazePAM 0.5 MG TABLET PO SCH ×2 (14:31→21:11)
[2017-05-15] MEDS ORDERED: POTASSIUM CHLORIDE TABS 20 MEQ TABLET.ER (FP) PO ONE (14:45)
--- NOTE | 2017-05-15 15:49 | PN ---
Teaching Attending Note Name of Resident: Mattie Sun (Nephrology) ATTENDING PHYSICIAN STATEMENT I saw and evaluated the patient. I reviewed the resident's note and discussed the case with the resident. I agree with the resident's findings and plan as documented. Nephrology Pt is a 76 year old male with pmhx of Dementia, Systolic CHF, CAD s/p pacemaker , HTN, HLD, PE, NIDDM II, peripheral neuropathy, GERD, CVA, and BPH who presents to the ER after a fall. He was found to be in KAYLEY. His renal function is improving. He saw me in the office last week for a renal workup, which is still pending. He denies shortness of breath. He denies dysuria. pmhx Dementia, Systolic CHF, CAD s/p pacemaker, HTN, HLD, PE, NIDDM II, peripheral neuropathy, GERD, CVA, BPH allergies tylenol oxycodone statins family hd denied social hx [facility] resident Current Medications Generic Name Dose Route Start Last Admin Trade Name Freq PRN Reason Stop Dose Admin Acetaminophen 650 mg 05/13/17 15:48 05/15/17 05:38 Tylenol - PO 650 mg Q4H PRN Administration PAIN LEVEL 1 - 3 Apixaban 2.5 mg 05/13/17 22:00 05/15/17 10:06 Eliquis - PO 2.5 mg BID ROXANNA Administration Citalopram Hydrobromide 10 mg 05/13/17 16:15 05/13/17 18:34 Celexa - PO Not Given DAILY ROXANNA Clonazepam 0.5 mg 05/15/17 14:00 05/15/17 14:31 Klonopin - PO 0.5 mg TID ROXANNA Administration Donepezil HCl 5 mg 05/13/17 22:00 05/14/17 21:16 Aricept - PO 5 mg HS ROXANNA Administration Dorzolamide HCl 1 drop 05/13/17 22:00 05/15/17 14:31 Trusopt 2% OD 1 drop TID ROXANNA Administration Gabapentin 300 mg 05/13/17 22:00 05/15/17 10:06 Neurontin - PO 300 mg BID ROXANNA Administration Insulin Aspart 1 vial 05/13/17 16:30 05/15/17 11:37 Novolog Vial Sliding Scale - SQ 2 unit ACHS ROXANNA Administration Protocol Isosorbide Mononitrate 30 mg 05/13/17 17:00 05/15/17 10:06 Imdur - PO 30 mg DAILY ROXANNA Administration Latanoprost 1 drop 05/13/17 22:00 05/14/17 22:20 Xalatan 0.005% Eye Drops - OU 1 drop HS ROXANNA Administration Memantine 10 mg 05/13/17 22:00 05/14/17 21:16 Namenda - PO 10 mg HS ROXANNA Administration Metolazone 2.5 mg 05/13/17 17:00 Zaroxolyn - PO DAILY ROXANNA Metoprolol Succinate 50 mg 05/13/17 17:00 05/15/17 10:06 Toprol Xl - PO 50 mg DAILY ROXANNA Administration Polymyxin/Trimethoprim Sulfate 1 drop 05/13/17 18:00 05/15/17 14:31 Polytrim Opthalmic Solution - OD 1 drop Q4HWA ROXANNA Administration Ranolazine 500 mg 05/13/17 22:00 05/15/17 10:06 Ranexa - PO 500 mg BID ROXANNA Administration Tamsulosin HCl 0.4 mg 05/13/17 22:00 05/14/17 21:16 Flomax - PO 0.4 mg HS ROXANNA Administration Last Vital Signs Temp Pulse Resp BP Pulse Ox 98.1 F 60 20 143/75 97 05/15/17 14:00 05/15/17 14:00 05/15/17 14:00 05/15/17 14:00 05/14/17 23:50 Laboratory Tests 05/31/16 07/20/16 07/20/16 05:35 00:30 07:40 Sodium Potassium Creatinine 1.4 H 1.5 H 1.3 Urine Protein Urine Blood Urine RBC (Auto) 05/13/17 05/13/17 05/14/17 10:54 10:54 06:00 Sodium Potassium Creatinine 2.6 H D 2.0 H D Urine Protein Negative Urine Blood Negative Urine RBC (Auto) None 05/15/17 13:15 Sodium 143 Potassium 3.2 L Creatinine 1.7 H Urine Protein Urine Blood Urine RBC (Auto) cardio s1s2 reg pulm clear GI soft ext neg edema skin venous stasis changes Impression 1. CKD 2. KAYLEY 3. CHF systolic 4. hypokalemia 5. s/p fall 6. CAD 7. PPM 8. hx PE 9. DM 10. HTN 11. HLD Plan - replace potassium - renal function improving - restart loop in am - stop metolazone - will follow Dr Gamez
--- NOTE | 2017-05-15 19:25 | PN ---
Teaching Attending Note Name of Resident: Norman Espinosa ATTENDING PHYSICIAN STATEMENT I saw and evaluated the patient. I reviewed the resident's note and discussed the case with the resident. I agree with the resident's findings and plan as documented. SUBJECTIVE: Patient is comfortable with no acute distress with a baseline dementia OBJECTIVE: Vital Signs Temperature 98.1 F 05/15/17 14:00 Pulse Rate 60 05/15/17 14:00 Respiratory Rate 20 05/15/17 14:00 Blood Pressure 143/75 05/15/17 14:00 O2 Sat by Pulse Oximetry (%) 96 05/15/17 09:00 CBCD WBC 8.2 K/mm3 (4.0-10.0) 05/14/17 06:00 RBC 4.67 M/mm3 (4.00-5.60) 05/14/17 06:00 Hgb 14.4 GM/dL (11.7-16.9) 05/14/17 06:00 Hct 43.2 % (35.4-49) 05/14/17 06:00 MCV 92.5 fl (80-96) 05/14/17 06:00 MCHC 33.3 g/dl (32.0-35.9) 05/14/17 06:00 RDW 14.2 % (11.9-15.9) 05/14/17 06:00 Plt Count 171 K/MM3 (134-434) 05/14/17 06:00 MPV 10.1 fl (7.5-11.1) 05/14/17 06:00 CMP Sodium 143 mmol/L (136-145) 05/15/17 13:15 Potassium 3.2 mmol/L (3.5-5.1) L 05/15/17 13:15 Chloride 102 mmol/L (98-107) 05/15/17 13:15 Carbon Dioxide 33 mmol/L (21-32) H 05/15/17 13:15 Anion Gap 8 (8-16) 05/15/17 13:15 BUN 36 mg/dL (7-18) H 05/15/17 13:15 Creatinine 1.7 mg/dL (0.7-1.3) H 05/15/17 13:15 Creat Clearance w eGFR 24.18 (>60) 05/13/17 10:54 Random Glucose 121 mg/dL (74-106) H 05/15/17 13:15 Calcium 9.1 mg/dL (8.5-10.1) 05/15/17 13:15 Total Bilirubin 0.6 mg/dL (0.2-1.0) 05/13/17 10:54 AST 50 U/L (15-37) H D 05/13/17 10:54 ALT 27 U/L (12-78) 05/13/17 10:54 Alkaline Phosphatase 75 U/L (45-117) 05/13/17 10:54 Total Protein 7.3 g/dl (6.4-8.2) 05/13/17 10:54 Albumin 3.6 g/dl (3.4-5.0) 05/13/17 10:54 CARDIAC ENZYMES Creatine Kinase 773 IU/L (39-308) H 05/15/17 16:00 Current Medications Generic Name Dose Route Start Last Admin Trade Name Freq PRN Reason Stop Dose Admin Acetaminophen 650 mg 05/13/17 15:48 05/15/17 05:38 Tylenol - PO 650 mg Q4H PRN Administration PAIN LEVEL 1 - 3 Apixaban 2.5 mg 05/13/17 22:00 05/15/17 10:06 Eliquis - PO 2.5 mg BID ROXANNA Administration Citalopram Hydrobromide 10 mg 05/13/17 16:15 05/13/17 18:34 Celexa - PO Not Given DAILY ROXANNA Clonazepam 0.5 mg 05/15/17 14:00 05/15/17 14:31 Klonopin - PO 0.5 mg TID ROXANNA Administration Donepezil HCl 5 mg 05/13/17 22:00 05/14/17 21:16 Aricept - PO 5 mg HS ROXANNA Administration Dorzolamide HCl 1 drop 05/13/17 22:00 05/15/17 14:31 Trusopt 2% OD 1 drop TID ROXANNA Administration Gabapentin 300 mg 05/13/17 22:00 05/15/17 10:06 Neurontin - PO 300 mg BID ROXANNA Administration Insulin Aspart 1 vial 05/13/17 16:30 05/15/17 16:45 Novolog Vial Sliding Scale - SQ Not Given ACHS ROXANNA Protocol Isosorbide Mononitrate 30 mg 05/13/17 17:00 05/15/17 10:06 Imdur - PO 30 mg DAILY ROXANNA Administration Latanoprost 1 drop 05/13/17 22:00 05/14/17 22:20 Xalatan 0.005% Eye Drops - OU 1 drop HS ROXANNA Administration Memantine 10 mg 05/13/17 22:00 05/14/17 21:16 Namenda - PO 10 mg HS ROXANNA Administration Metolazone 2.5 mg 05/13/17 17:00 Zaroxolyn - PO DAILY ROXANNA Metoprolol Succinate 50 mg 05/13/17 17:00 05/15/17 10:06 Toprol Xl - PO 50 mg DAILY ROXANNA Administration Polymyxin/Trimethoprim Sulfate 1 drop 05/13/17 18:00 05/15/17 18:36 Polytrim Opthalmic Solution - OD 1 drop Q4HWA ROXANNA Administration Ranolazine 500 mg 05/13/17 22:00 05/15/17 10:06 Ranexa - PO 500 mg BID ROXANNA Administration Tamsulosin HCl 0.4 mg 05/13/17 22:00 05/14/17 21:16 Flomax - PO 0.4 mg HS ROXANNA Administration Home Medications Medication Instructions Recorded RX: Apixaban [Eliquis -] 2.5 mg PO BID 12/09/15 RX: Ranolazine [Ranexa] 500 mg PO BID 12/09/15 RX: Tamsulosin HCl 0.4 mg PO HS 12/09/15 RX: Isosorbide Mononitrate [Imdur 30 mg PO DAILY #30 tab.sr.24h 12/31/15 -] RX: Metoprolol Succinate [Toprol 50 mg PO DAILY tab.sr.24h 12/31/15 XL -] RX: Gabapentin [Neurontin] 300 mg PO BID 02/24/16 RX: Dorzolamide HCl [Trusopt 2% -] 1 drop OD TID 05/30/16 RX: Hypromellose 0.5% Opth Soln 1 drop OU QID 05/30/16 [Artificial Tears] RX: Donepezil HCl [Aricept -] 5 mg PO HS tablet 07/20/16 RX: Memantine HCl [Namenda -] 10 mg PO HS tablet 07/20/16 Brimonidine Tartrate/Timolol 2 drop OP BID 05/13/17 [Combigan Eye Drops] Citalopram Hydrobromide [Celexa -] 10 mg PO DAILY 05/13/17 Clonazepam [Klonopin] 0.5 mg PO TID 05/13/17 Latanoprost 0.005% Eye Drops 1 drop OP HS 05/13/17 [Xalatan 0.005% Eye Drops -] Memantine HCl [Namenda -] 10 mg PO HS 05/13/17 RX: Metolazone 2.5 mg PO DAILY 05/13/17 Torsemide [Demadex] 60 mg PO DAILY 05/13/17 ASSESSMENT AND PLAN: This is a 76 yo M, with a PMH of dementia, CHF, CAD, s/p pacemaker, multiple admissions for angina, HTN, HLD, PE, DM, peripheral neuropathy, GERD, CVA, BPH, who presented from [facility] s/p unwitnessed fall. # KAYLEY improving , will continue IVF , will continue to hold Metazolone and Torsemide, nephro on the case # Fall unwitnessed imaging negative for fracture or intracranial hemorrhage. On Eliquis since patient has hx of CVa and PE. #Prolonged Qtc 512; hold Celexa for now, repeat EKG in am # Acute hypokalemia replete with kdur # R eye conjunctivitis possibly bacterial ; Polytrim eye drops #Hx of glaucoma on Xalatan continue #CAD continue toprol xl 50 d #CHF resume imdur 30 d, torsemide 60 d #HTN continue meds # Hx of PE resume eliquis; given history of fall and dementia, it is questionable whether benefits outweigh the risks. #HLD f/u lipid panel , allergic to statin # DM, bgm, ISS ACHS # Hx of Peripheral neuropathy resume gabapentin for neuropathy # Hx of Dementia resume aricept, ranexa, hold ssri (celexa 10 d) #BPH hx resume flomax patient was made in patient.
[2017-05-15] MEDS: LATANOPROST 0.005% OPHTH SOLN 2.5ML BOTTLE OU SCH (21:10)
[2017-05-15] MEDS: TAMSULOSIN HCL 0.4 MG CAP.ER.24H (FP) PO SCH (21:11)
[2017-05-15] MEDS: MEMANTINE HCL 10 MG TABLET (FP) PO SCH (21:11)
[2017-05-15] MEDS: DONEPEZIL HCL 5 MG TABLET (FP) PO SCH (21:11)
[2017-05-15] MEDS ORDERED: INSULIN (NOVOLOG) ASPART 100 UNITS/ML 10ML VIAL ONE (21:12)
[2017-05-16] MEDS: DORZOLAMIDE 2% HCL OPHTHALMIC SOLUTION 10 ML BOTTLE OD SCH ×2 (05:56→14:24)
[2017-05-16] MEDS: POLYMYXIN B SULFATE/TMP 10 ML OPHTHALMIC SOLUTION OD SCH ×4 (05:56→17:44)
[2017-05-16] MEDS: clonazePAM 0.5 MG TABLET PO SCH ×2 (05:56→14:24)
[2017-05-16] MEDS: INSULIN SLIDING SCALE (NOVOLOG) 1 VIAL SQ SCH ×3 (06:00→17:10)
[2017-05-16 08:19] VITALS: PULSE 60
[2017-05-16 09:13] LABS: HEMATOCRIT 42.1 % (35.4-49); HEMOGLOBIN 13.9 GM/dL (11.7-16.9); MCH 30.8 pg (25.7-33.7); MCHC 33.1 g/dl (32.0-35.9); MEAN CELL VOLUME 92.9 fl (80-96); MEAN PLT VOLUME 9.3 fl (7.5-11.1); PLATELET COUNT 187 K/MM3 (134-434); RBC 4.53 M/mm3 (4.00-5.60); RDW 14.7 % (11.9-15.9); WHITE BLOOD COUNT 7.4 K/mm3 (4.0-10.0)
[2017-05-16] MEDS ORDERED: PT OWN MED DRAWER 7, Y5N ONE ×2 (09:40→14:23)
[2017-05-16] MEDS: APIXABAN 2.5 MG TABLET PO SCH (09:41)
[2017-05-16] MEDS: CITALOPRAM HYDROBROMIDE 10 MG TABLET (FP) PO SCH (09:41)
[2017-05-16] MEDS: ISOSORBIDE MONONITRATE 30 MG TAB.SR.24H (FP) PO SCH (09:41)
[2017-05-16] MEDS: RANOLAZINE E.R. 500 MG TABLET (FP) PO SCH (09:41)
[2017-05-16] MEDS: GABAPENTIN 300 MG CAPSULE (FP) PO SCH (09:41)
[2017-05-16 09:49] LABS: ALBUMIN 3.3 g/dl (3.4-5.0); ALK PHOS 66 U/L (45-117); ANION GAP 8 (8-16); BILIRUBIN,TOTAL 0.6 mg/dL (0.2-1.0); BLOOD UREA NITROGEN 31 mg/dL (7-18); CALCIUM 8.4 mg/dL (8.5-10.1); CHLORIDE 107 mmol/L (98-107); CO2 27 mmol/L (21-32); CREATININE 1.7 mg/dL (0.7-1.3); GLUCOSE,RANDOM 118 mg/dL (74-106); POTASSIUM 3.5 mmol/L (3.5-5.1); SGOT/AST 29 U/L (15-37); SGPT/ALT 24 U/L (12-78); SODIUM 142 mmol/L (136-145); TOT PROT 6.3 g/dl (6.4-8.2)
[2017-05-16] MEDS ORDERED: TORSEMIDE 20 MG TABLET (FP) PO SCH (12:00)
--- NOTE | 2017-05-16 13:11 | PN ---
Progress Note, Physician History of Present Illness: Pt seen and examined at bedside. He is awake and alert. He is awake and mental status is at baseline. - Current Medication List Current Medications: Active Medications Acetaminophen (Tylenol -) 650 mg PO Q4H PRN PRN Reason: PAIN LEVEL 1 - 3 Last Admin: 05/15/17 05:38 Dose: 650 mg Apixaban (Eliquis -) 2.5 mg PO BID [facility] Last Admin: 05/16/17 09:41 Dose: 2.5 mg Citalopram Hydrobromide (Celexa -) 10 mg PO DAILY [facility] Last Admin: 05/16/17 09:41 Dose: 10 mg Clonazepam (Klonopin -) 0.5 mg PO TID [facility] Last Admin: 05/16/17 05:56 Dose: 0.5 mg Donepezil HCl (Aricept -) 5 mg PO HS [facility] Last Admin: 05/15/17 21:11 Dose: 5 mg Dorzolamide HCl (Trusopt 2%) 1 drop OD TID [facility] Last Admin: 05/16/17 05:56 Dose: 1 drop Gabapentin (Neurontin -) 300 mg PO BID [facility] Last Admin: 05/16/17 09:41 Dose: 300 mg Insulin Aspart (Novolog Vial Sliding Scale -) 1 vial SQ ACHS [facility] PRN Reason: Protocol Last Admin: 05/16/17 11:45 Dose: 2 unit Isosorbide Mononitrate (Imdur -) 30 mg PO DAILY [facility] Last Admin: 05/16/17 09:41 Dose: 30 mg Latanoprost (Xalatan 0.005% Eye Drops -) 1 drop OU HS [facility] Last Admin: 05/15/17 21:10 Dose: 1 drop Memantine (Namenda -) 10 mg PO HS [facility] Last Admin: 05/15/17 21:11 Dose: 10 mg Metoprolol Succinate (Toprol Xl -) 50 mg PO DAILY [facility] Last Admin: 05/16/17 09:41 Dose: 50 mg Polymyxin/Trimethoprim Sulfate (Polytrim Opthalmic Solution -) 1 drop OD Q4HWA [facility] Last Admin: 05/16/17 09:41 Dose: 1 drop Ranolazine (Ranexa -) 500 mg PO BID [facility] Last Admin: 05/16/17 09:41 Dose: 500 mg Tamsulosin HCl (Flomax -) 0.4 mg PO HS [facility] Last Admin: 05/15/17 21:11 Dose: 0.4 mg Torsemide (Demadex -) 60 mg PO DAILY [facility] Last Admin: 05/16/17 12:39 Dose: 60 mg - Objective Vital Signs: Vital Signs Temperature 98.4 F 05/16/17 06:00 Pulse Rate 60 05/16/17 09:00 Respiratory Rate 20 05/16/17 09:00 Blood Pressure 138/67 05/16/17 09:00 O2 Sat by Pulse Oximetry (%) 95 05/15/17 23:15 Constitutional: Yes: Calm Eyes: Yes: Conjunctiva Clear HENT: Yes: Atraumatic Cardiovascular: Yes: S1, S2 Respiratory: Yes: CTA Bilaterally Gastrointestinal: Yes: Soft Genitourinary: Yes: WNL Musculoskeletal: Yes: WNL Edema: No Integumentary: Yes: Venous Stasis Changes Psychiatric: Yes: Oriented Labs: CBC, BMP 05/16/17 09:05 05/16/17 09:05 INR, PTT INR 1.17 (0.82-1.09) H 05/13/17 10:54 - ....Imaging Ultrasound: Report Reviewed Problem List - Problems (1) CKD (chronic kidney disease) Code(s): N18.9 - CHRONIC KIDNEY DISEASE, UNSPECIFIED (2) KAYLEY (acute kidney injury) Code(s): N17.9 - ACUTE KIDNEY FAILURE, UNSPECIFIED Assessment/Plan Current Medications Generic Name Dose Route Start Last Admin Trade Name Freq PRN Reason Stop Dose Admin Acetaminophen 650 mg 05/13/17 15:48 05/15/17 05:38 Tylenol - PO 650 mg Q4H PRN Administration PAIN LEVEL 1 - 3 Apixaban 2.5 mg 05/13/17 22:00 05/16/17 09:41 Eliquis - PO 2.5 mg BID ROXANNA Administration Citalopram Hydrobromide 10 mg 05/13/17 16:15 05/16/17 09:41 Celexa - PO 10 mg DAILY ROXANNA Administration Clonazepam 0.5 mg 05/15/17 14:00 05/16/17 05:56 Klonopin - PO 0.5 mg TID ROXANNA Administration Donepezil HCl 5 mg 05/13/17 22:00 05/15/17 21:11 Aricept - PO 5 mg HS ROXANNA Administration Dorzolamide HCl 1 drop 05/13/17 22:00 05/16/17 05:56 Trusopt 2% OD 1 drop TID ROXANNA Administration Gabapentin 300 mg 05/13/17 22:00 05/16/17 09:41 Neurontin - PO 300 mg BID ROXANNA Administration Insulin Aspart 1 vial 05/13/17 16:30 05/16/17 11:45 Novolog Vial Sliding Scale - SQ 2 unit ACHS ROXANNA Administration Protocol Isosorbide Mononitrate 30 mg 05/13/17 17:00 05/16/17 09:41 Imdur - PO 30 mg DAILY ROXANNA Administration Latanoprost 1 drop 05/13/17 22:00 05/15/17 21:10 Xalatan 0.005% Eye Drops - OU 1 drop HS ROXANNA Administration Memantine 10 mg 05/13/17 22:00 05/15/17 21:11 Namenda - PO 10 mg HS ROXANNA Administration Metoprolol Succinate 50 mg 05/13/17 17:00 05/16/17 09:41 Toprol Xl - PO 50 mg DAILY ROXANNA Administration Polymyxin/Trimethoprim Sulfate 1 drop 05/13/17 18:00 05/16/17 09:41 Polytrim Opthalmic Solution - OD 1 drop Q4HWA ROXANNA Administration Ranolazine 500 mg 05/13/17 22:00 05/16/17 09:41 Ranexa - PO 500 mg BID ROXANNA Administration Tamsulosin HCl 0.4 mg 05/13/17 22:00 05/15/17 21:11 Flomax - PO 0.4 mg HS ROXANNA Administration Torsemide 60 mg 05/16/17 12:00 05/16/17 12:39 Demadex - PO 60 mg DAILY ROXANNA Administration Laboratory Tests 05/13/17 05/15/17 05/16/17 10:54 13:15 09:05 Creatinine 1.7 H 1.7 H Urine Protein Negative Urine Blood Negative cardio s1s2 reg pulm clear GI soft ext neg edema skin venous stasis changes Impression 1. CKD 2. KAYLEY 3. CHF systolic 4. hypokalemia 5. s/p fall 6. CAD 7. PPM 8. hx PE 9. DM 10. HTN 11. HLD Plan - cont torsemide - hold off metolazone - monitor lytes - renal function close to baseline - will see pt in office - discussed with medical team Dr Gamez
--- NOTE | 2017-05-16 14:47 | DS ---
Physical Exam: SUBJECTIVE: Patient seen and examined at bedside. No acute events over night stable to go back to residential. kidney function is stable. OBJECTIVE: Vital Signs Period Temp Pulse Resp BP Sys/Muñoz Pulse Ox Last 24 Hr 97.9 F-98.6 F 58-60 19-20 106-156/48-75 95 GENERAL: AAOx1 in NAD HEAD: NC/AT EYES: sclera anicteric ENT: moist mucous membrane NECK: Supple, no JVD LUNGS: CTA B/L, no crackles no wheezing no accessory muscle use. HEART: RRR, NSR, normal s1, s2, murmur , noM/ R/G ABDOMEN: Soft, ND, NT, +BS 4 Q, no CVA Tenderness LOWER EXTREMITIES: no edema, +2 pulse,anterior huitron skin pigmentation. NEUROLOGICAL: No focal deficit. Normal speech. gait not observed. PSYCHIATRIC: Cooperative. Good eye contact.flat mood and affect. SKIN: Warm, dry, PHYSICAL EXAM LABS Laboratory Results - last 24 hr 05/15/17 05/15/17 05/15/17 16:00 16:00 16:45 WBC RBC Hgb Hct MCV MCH MCHC RDW Plt Count MPV Sodium Potassium Chloride Carbon Dioxide Anion Gap BUN Creatinine Creat Clearance w eGFR POC Glucometer 149 Random Glucose Calcium Magnesium 2.2 Total Bilirubin AST ALT Alkaline Phosphatase Creatine Kinase 773 H Creatine Kinase Index 0.8 CK-MB (CK-2) 6.872 H Total Protein Albumin 05/15/17 05/16/17 05/16/17 21:09 05:54 09:05 WBC 7.4 RBC 4.53 Hgb 13.9 Hct 42.1 MCV 92.9 MCH 30.8 MCHC 33.1 RDW 14.7 Plt Count 187 MPV 9.3 Sodium Potassium Chloride Carbon Dioxide Anion Gap BUN Creatinine Creat Clearance w eGFR POC Glucometer 223 123 Random Glucose Calcium Magnesium Total Bilirubin AST ALT Alkaline Phosphatase Creatine Kinase Creatine Kinase Index CK-MB (CK-2) Total Protein Albumin 05/16/17 05/16/17 09:05 11:43 WBC RBC Hgb Hct MCV MCH MCHC RDW Plt Count MPV Sodium 142 Potassium 3.5 Chloride 107 Carbon Dioxide 27 Anion Gap 8 BUN 31 H Creatinine 1.7 H Creat Clearance w eGFR 39.49 POC Glucometer 177 Random Glucose 118 H Calcium 8.4 L Magnesium Total Bilirubin 0.6 AST 29 D ALT 24 Alkaline Phosphatase 66 Creatine Kinase Creatine Kinase Index CK-MB (CK-2) Total Protein 6.3 L Albumin 3.3 L CBC, BMP 05/16/17 09:05 05/16/17 09:05 HOSPITAL COURSE: Date of Admission:05/15/17 Date of Discharge: 05/16/17 is 76 yo M, with a PMH of dementia, CHF, CAD, s/p pacemaker, multiple admissions for angina, HTN, HLD, PE, DM, peripheral neuropathy, GERD, CVA, BPH, who presented from [facility] s/p unwitnessed fall imaging negative for fracture or intracraneal hemorrhage. pt was found to have KAYLEY on CKD likey pre renal, bun/creat 46/2.6, baseline 1.4 metollazone 2.5 daily and resume demadex 60 mg po daily upon DC . his BUN /Cr has been imptoved to 31/1.7.pt was found to have hypokalemia resolved with gentle isotonic ivf volume repletion K riders x 3 . K is 3.5 on discharged. pt has Prolonged [id number]; hold ssri, avoid aggravating agents, need to taper cymbalta and avoid any other meds that can cause QT prolongation. pt has R eye conjunctivitis,possibly bacterial cont polytrip drops and start polymyxine in both eyes for 10 days. for glaucoma resume torzolamide, lantoprost drops , for CAD resume toprol xl 50 d for CHF resume imdur 30 d, torsemide 60 d .for HLD pt is a allergic to statin , will start him on welchol. for DM he will resume his home meds.pt has Peripheral neuropathy cont gabapentin 300 BID for neuropathy .and can resume aricept, ranexa, hold ssri (selexa 10 d) for dementia. he is on flomax for BPH . pt is on Eliquis 2.5 mg BID for anticoagulation. ot is hemodynamically stable and ready to dc to [facility] came from. Minutes to complete discharge: 40 Discharge Summary Reason For Visit: ACUTE KIDNEY INJURY Current Active Problems Conjunctivitis (Acute) CKD (chronic kidney disease) (Chronic) Glaucoma (Chronic) Shoulder pain, right (Chronic) Condition: Stable - Instructions Diet, Activity, Other Instructions: You were admitted to the hospital after you fell down , work up came back negative. you were found to have acute kidney injury due to dehydration and over diuretic use. You will be send back the facility you came from [facility]. Please follow fall precautions Please take your meds as prescribed. Please stop using Metolazone and continue using demadex 60 daily as diuretics Please use polymexine sulfate eye drop for both eyes one drop every 4 hours for 10 days. Please taper Cymbalta till you stop because it qause prolongation in your EKG that can cause heart to stop working properly. Please repeat blood work within one week BMP and send result to your primary and . Please follow up with your primary care physician within one week. Please follow up with within one week. If you develop fever, chills or your symptoms worsen return to emergency room as soon as possible. Referrals: Ezekiel Lawson MD [Primary Care Provider] - 1 Week Kate Gamez MD [Staff Physician] - 1 Week [facility] - Home Medications Comprehensive Discharge Medication List: Ambulatory Orders Apixaban [Eliquis -] 2.5 mg PO BID 12/09/15 Ranolazine [Ranexa] 500 mg PO BID 12/09/15 Tamsulosin HCl 0.4 mg PO HS 12/09/15 Isosorbide Mononitrate [Imdur -] 30 mg PO DAILY #30 tab.sr.24h 12/31/15 Metoprolol Succinate [Toprol XL -] 50 mg PO DAILY tab.sr.24h 12/31/15 Gabapentin [Neurontin] 300 mg PO BID 02/24/16 Dorzolamide HCl [Trusopt 2% -] 1 drop OD TID 05/30/16 Hypromellose 0.5% Opth Soln [Artificial Tears] 1 drop OU QID 05/30/16 Donepezil HCl [Aricept -] 5 mg PO HS tablet 07/20/16 Memantine HCl [Namenda -] 10 mg PO HS tablet 07/20/16 Brimonidine Tartrate/Timolol [Combigan 0.2%-0.5% Eye Drops] 2 drop OP BID Citalopram Hydrobromide [Celexa -] 10 mg PO DAILY 05/13/17 Clonazepam [Klonopin] 0.5 mg PO TID 05/13/17 Latanoprost 0.005% Eye Drops [Xalatan 0.005% Eye Drops -] 1 drop OP HS 05/13/17 Torsemide [Demadex -] 60 mg PO DAILY 05/13/17 Acetaminophen [Tylenol .Regular Strength -] 650 mg PO Q4H PRN tablet 05/16/17 Colesevelam HCl [Welchol (Nf)] 625 mg NR DAILY #30 tablet 05/16/17 Polymyxin B Sulf/Trimethoprim [Polymyxin B-Tmp Eye Drops] 10 ml OU Q4H #1 drops 05/16/17 This patient is new to me today: No Emergency Visit: Yes ED Registration Date: 05/15/17 Care time: The patient presented to the Emergency Department on the above date and was hospitalized for further evaluation of their emergent condition. Critical Care patient: No - Discharge Referral Referred to [facility] Med P.C.: No
[2017-05-16 15:18] VITALS: BP 119/59; TEMP 98.6
--- NOTE | 2017-05-16 19:43 | PN ---
Teaching Attending Note Name of Resident: Norman Espinosa ATTENDING PHYSICIAN STATEMENT I saw and evaluated the patient. I reviewed the resident's note and discussed the case with the resident. I agree with the resident's findings and plan as documented. SUBJECTIVE: no fever or chills . has no abd pain, feels better. limited history due to dementia OBJECTIVE: NAd, knows his location , no to age or year . b/l injection in his conjunctivae CV: RRR Lungs : CTAb ext: wrinkling skin, no edema Abd: soft, NT, ND < NL BS ASSESSMENT AND PLAN: 76 y/o man with h/o dementia, CHF, CAD, HLP, Dm and PE who presented with an unwitnessed fall 1- fall, neg trauma w/u 2- KAYLEY: improved . cr at base line resume torsemide 3- prolonged Qtc . celexa continued. NH to be instructed to taper off if possible 4- b/l conjunctivitis : cont polymixin eye drops 5- CAD: cont topro; imdur 6- CHF: resume torsemide. not to resume metolazone at dc 7- h/o PE: cont eliquis 8- DM: SSI will call NH and add ssi to dc meds as it was missed at dc
== END 2017-05-16 19:27 | DRG 683 ==
LOC: JER 09:43 → UNDOADMIN 15:04 → JERBED 15:04 → INTOOBSV 15:41 → J6S 05-14 09:01 → OBSVTOIN 05-15 11:36
PROVIDERS: ADMIT Internal Medicine; ATTEND Internal Medicine
DX: N17.9 Acute kidney failure, unspecified (principal); I13.0 Hypertensive heart and chronic kidney disease with heart failure and stage 1 through stage 4 chronic kidney disease, or unspecified chronic kidney disease; I50.22 Chronic systolic (congestive) heart failure; E87.3 Alkalosis; E11.22 Type 2 diabetes mellitus with diabetic chronic kidney disease; N18.9 Chronic kidney disease, unspecified; E86.0 Dehydration; E87.6 Hypokalemia; H10.89 Other conjunctivitis; I45.81 Long QT syndrome; I48.91 Unspecified atrial fibrillation; Z91.81 History of falling; I25.119 Atherosclerotic heart disease of native coronary artery with unspecified angina pectoris; E78.5 Hyperlipidemia, unspecified; G62.9 Polyneuropathy, unspecified; Z86.711 Personal history of pulmonary embolism; Z79.01 Long term (current) use of anticoagulants; Z95.0 Presence of cardiac pacemaker; S09.8XXA Other specified injuries of head, initial encounter; S49.81XA Other specified injuries of right shoulder and upper arm, initial encounter; S29.8XXA Other specified injuries of thorax, initial encounter; S79.811A Other specified injuries of right hip, initial encounter; M54.2 Cervicalgia; W01.0XXA Fall on same level from slipping, tripping and stumbling without subsequent striking against object, initial encounter; Y93.89 Activity, other specified; Y92.128 Other place in nursing home as the place of occurrence of the external cause; Y99.8 Other external cause status; Z86.73 Personal history of transient ischemic attack (TIA), and cerebral infarction without residual deficits; N40.0 Benign prostatic hyperplasia without lower urinary tract symptoms; H40.9 Unspecified glaucoma
CPT/HCPCS: 36415; 70450-TC; 71045-TC-FY; 71101-TC-RT-FY; 72125-TC; 73060-TC-RT-FY; 73523-TC-FY; 76775-TC; 80048; 80053; 80061; 81003; 81015; 82550; 82553; 82962; 83036; 83721; 83735; 84100; 85025; 85027; 85610; 85730; 87045; 87046; 87086; 87324; 87449; 93005; 93010; 97116-GP; 97161-GP; 99285-25; G0378; J7030

== ENCOUNTER 2019-05-23 18:40 | Inpatient (IN) | payer OTHER ==
--- NOTE | 2019-05-23 19:45 | PDOC ---
Attending Attestation - Resident Resident Name: Miko Morris - ED Attending Attestation I have performed the following: I have examined & evaluated the patient, The case was reviewed & discussed with the resident, I agree w/resident's findings & plan - HPI HPI: 05/23/19 19:59 Pt has CHF, HTN, DM, and [place] that is generalized. - Physicial Exam PE: 05/23/19 21:11 Pt has normal heart and lungs no rashes afebrile he is answering questions alert to his name, but not time and place Abd soft NT ND no c/c/e; but chronic skin changes of peripheral vasc disease. - Medical Decision Making 05/23/19 21:08 CBC normal INR normal rest of labs pending. 05/23/19 21:11 CT old changes 05/23/19 21:13 hydrated with 500ml NSS, as he has CHF, and we will start with gentle hydration. 05/23/19 23:05 FLU negative; UTI positive.
--- NOTE | 2019-05-23 19:51 | PDOC ---
History of Present Illness - General Chief Complaint: Weakness Stated Complaint: LETHARGIC Time Seen by Provider: 05/23/19 19:38 - History of Present Illness Initial Comments: Hx limited 2/2 dementia Janusz Valle is a 78 y/o male with PMH significant for CP, dementia, CHF, CAD , HTN, HLD, angina, PE, s/p pacemaker, DM, GERD, stroke, BPH, BIBEMS from [facility] for lethargy and generalized weakness. Pt is unsure why he is in the ED and states that the only complaint he has is right shoulder pain. Denies chest pain/shortness of breath. Denies abdominal pain. Denies headache. Denies dizziness. Denies lower extremity swelling. Denies dysuria. Past History - Past Medical History Allergies/Adverse Reactions: Allergies Allergy/AdvReac Type Severity Reaction Status Date / Time acetaminophen Allergy Verified 05/23/19 19:04 oxycodone Allergy Verified 05/23/19 19:04 [id number]-[id number]-Qdh Reductase Allergy Verified 05/23/19 19:04 Inhibitor Home Medications: Ambulatory Orders Apixaban [Eliquis -] 2.5 mg PO BID 12/09/15 Ranolazine [Ranexa] 500 mg PO BID 12/09/15 Tamsulosin HCl 0.4 mg PO HS 12/09/15 Isosorbide Mononitrate [Imdur -] 30 mg PO DAILY #30 tab.sr.24h 12/31/15 Gabapentin [Neurontin] 300 mg PO BID 02/24/16 Dorzolamide HCl [Trusopt 2% -] 1 drop OD TID 05/30/16 Donepezil HCl [Aricept -] 5 mg PO HS tablet 07/20/16 Memantine HCl [Namenda -] 10 mg PO HS tablet 07/20/16 Latanoprost 0.005% Eye Drops [Xalatan 0.005% Eye Drops -] 1 drop OP HS 05/13/17 Acetaminophen [Tylenol .Regular Strength -] 650 mg PO Q4H PRN tablet 05/16/17 Combigan 0.2%-0.5% Eye Drops 1 drop OS BID 05/23/19 Duloxetine HCl [Cymbalta -] 30 mg PO DAILY 05/23/19 Glipizide [Glipizide ER] 5 mg PO DAILY 05/23/19 Metolazone [Zaroxolyn -] 2.5 mg PO DAILY 05/23/19 Metoprolol Tartrate [Lopressor -] 25 mg PO BID 05/23/19 Nitrostat - 05/23/19 Spironolactone [Aldactone] 12.5 mg PO 05/23/19 Anemia: No Asthma: No Cancer: No Cardiac Disorders: Yes (angina, PE) CVA: No COPD: No CHF: Yes Dementia: Yes (per record harm to self or others) Diabetes: Yes (type 2) GI Disorders: No Disorders: Yes (BPH) HTN: Yes Hypercholesterolemia: Yes Liver Disease: No Psychiatric Problems: Yes (anxiety) Seizures: No Thyroid Disease: No - Surgical History Abdominal Surgery: Yes Appendectomy: No Cardiac Surgery: Yes (PPM) Cholecystectomy: No Lung Surgery: No Neurologic Surgery: No Orthopedic Surgery: No - Immunization History Immunization Up to Date: Yes - Psycho Social/Smoking Cessation Hx Smoking History: Unknown if ever smoked Have you smoked in the past 12 months: No If you are a former smoker, when did you quit?: 1999 approx Hx Alcohol Use: No Drug/Substance Use Hx: No Substance Use Type: None Hx Substance Use Treatment: No Review of Systems - Review of Systems Able to Perform ROS?: No (limited 2/2 AMS) Is the patient limited Macanese proficient: Yes Musculoskeletal: Yes: Joint Pain (right shoulder) *Physical Exam - Vital Signs Last Vital Signs Temp Pulse Resp BP Pulse Ox 97.6 F 60 18 96/53 L 96 05/23/19 19:02 05/23/19 19:02 05/23/19 19:02 05/23/19 19:02 05/23/19 19:02 - Physical Exam GENERAL: Awake, alert, in no acute distress_ HEAD: No signs of trauma, normocephalic, atraumatic _ EYES: PERRLA, EOMI, sclera anicteric, conjunctiva clear_ ENT: Hearing grossly normal, nares patent, oropharynx clear without exudates. No uvular deviation. Moist mucosa_ NECK: Normal ROM, supple, no lymphadenopathy, JVD, or masses_ LUNGS: No distress, speaks in full sentences, clear to auscultation bilaterally _ HEART: Regular rate and rhythm, normal S1 and S2, no murmurs appreciated, peripheral pulses normal and equal bilaterally._ ABDOMEN: Soft, nontender, normoactive bowel sounds. No guarding, no rebound. No masses_ EXTREMITIES: Normal inspection, Normal range of motion, no edema. No clubbing or cyanosis. TTP superior aspect of right shoulder. Mild decreased strength against gravity but equal bilaterally. NEUROLOGICAL: Cranial nerves II through XII grossly intact. Normal speech, no focal sensorimotor deficits _ SKIN: Warm, Dry, normal turgor, no rashes or lesions noted_ ED Treatment Course - LABORATORY CBC & Chemistry Diagram: 05/23/19 20:17 05/23/19 20:17 - RADIOLOGY Radiology Studies Ordered: Category Date Time Status HEAD CT WITHOUT CONTRAST [CT] Stat CT Scan 05/23/19 19:44 Ordered CHEST X-RAY PORTABLE* [RAD] Stat Radiology 05/23/19 19:45 Ordered Medical Decision Making - Medical Decision Making 05/23/19 20:41 78M sent in from long-term for lethargy and generalized weakness. -cbc, cmp, lactic, coags -trop, cxr, ekg -ct head -ua, ucx -acetaminophen, salicylate 05/23/19 21:14 CT head shows no acute intracranial pathology, small chronic bilateral thalamic and left basal ganglia infarcts, moderate periventricular and subcortical chronic microvascular ischemic changes. No definite interval change compared to CT on 05/13/2017. 05/23/19 21:46 EKG shows atrial-ventricular paced rhythm, wide ventricular rhythm, RBBB (not seen on prior EKG 2017), no ST elevation, 60 bpm. 05/23/19 22:22 CXR shows no acute intra thoracic pathology. XR right shoulder shows no acute fracture or subluxation. 05/23/19 22:47 Labs reviewed. Laboratory Last Values WBC 10.3 K/mm3 (4.0-10.0) H 05/23/19 20:17 RBC 3.82 M/mm3 (4.00-5.60) L 05/23/19 20:17 Hgb 12.4 GM/dL (11.7-16.9) 05/23/19 20:17 Hct 36.6 % (35.4-49) 05/23/19 20:17 MCV 95.6 fl (80-96) 05/23/19 20:17 MCH 32.3 pg (25.7-33.7) 05/23/19 20:17 MCHC 33.8 g/dl (32.0-35.9) 05/23/19 20:17 RDW 13.7 % (11.9-15.9) 05/23/19 20:17 Plt Count 189 K/MM3 (134-434) 05/23/19 20:17 MPV 9.2 fl (7.5-11.1) 05/23/19 20:17 Absolute Neuts (auto) 7.0 K/mm3 (1.5-8.0) 05/23/19 20:17 Neutrophils % 68.4 % (42.8-82.8) 05/23/19 20:17 Lymphocytes % 23.1 % (8-40) 05/23/19 20:17 Monocytes % 6.8 % (3.8-10.2) 05/23/19 20:17 Eosinophils % 1.3 % (0-4.5) 05/23/19 20:17 Basophils % 0.4 % (0-2.0) 05/23/19 20:17 Nucleated RBC % 0 % (0-0) 05/23/19 20:17 PT with INR 15.00 SEC (9.7-13.0) H 05/23/19 20:17 INR 1.27 (0.83-1.09) H 05/23/19 20:17 PTT (Actin FS) 34.0 SECONDS (25.2-36.5) 05/23/19 20:17 Sodium 136 mmol/L (136-145) 05/23/19 20:17 Potassium 5.7 mmol/L (3.5-5.1) H 05/23/19 20:17 Chloride 107 mmol/L (98-107) 05/23/19 20:17 Carbon Dioxide 24 mmol/L (21-32) 05/23/19 20:17 Anion Gap 6 MMOL/L (8-16) L 05/23/19 20:17 BUN 41.5 mg/dL (7-18) H 05/23/19 20:17 Creatinine 2.1 mg/dL (0.55-1.3) H 05/23/19 20:17 Est GFR (CKD-EPI)AfAm 34.16 05/23/19 20:17 Est GFR (CKD-EPI)NonAf 29.47 05/23/19 20:17 Random Glucose 158 mg/dL (74-106) H 05/23/19 20:17 Lactic Acid 1.5 mmol/L (0.4-2.0) 05/23/19 20:03 Calcium 8.9 mg/dL (8.5-10.1) 05/23/19 20:17 Total Bilirubin 0.6 mg/dL (0.2-1) 05/23/19 20:17 AST 19 U/L (15-37) 05/23/19 20:17 ALT 20 U/L (13-61) 05/23/19 20:17 Alkaline Phosphatase 73 U/L (45-117) 05/23/19 20:17 Creatine Kinase 49 U/L (26-308) 05/23/19 20:17 Troponin I 0.08 ng/ml (0.00-0.05) H 05/23/19 20:17 Total Protein 6.5 g/dl (6.4-8.2) 05/23/19 20:17 Albumin 3.1 g/dl (3.4-5.0) L 05/23/19 20:17 Urine Color Yellow 05/23/19 21:28 Urine Appearance Clear 05/23/19 21:28 Urine pH 7.0 (5.0-8.0) 05/23/19 21: Ur Specific Springer 1.018 (1.010-1.035) 05/23/19 21:28 Urine Protein Negative (NEGATIVE) 05/23/19 21:28 Urine Glucose (UA) Negative (NEGATIVE) 05/23/19 21: Urine Ketones Negative (NEGATIVE) 05/23/19 21: Urine Blood Negative (NEGATIVE) 05/23/19 21:28 Urine Nitrite Negative (NEGATIVE) 05/23/19 21:28 Urine Bilirubin Negative (NEGATIVE) 05/23/19 21:28 Urine Urobilinogen 1.0 mg/dL (0.2-1.0) 05/23/19 21:28 Ur Leukocyte Esterase 2+ (NEGATIVE) H 05/23/19 21:28 Urine WBC (Auto) 16 /hpf (0-5) 05/23/19 21:28 Urine RBC (Auto) 1 /hpf (0-4) 05/23/19 21:28 Urine Casts (Auto) 9 /lpf (0-8) 05/23/19 21:28 U Epithel Cells (Auto) 8.2 /HPF (0-5/HPF) 05/23/19 21:28 Urine Bacteria (Auto) 766.5 /hpf (NEGATIVE) 05/23/19 21:28 Salicylates < 1.7 mg/dL (2.8-20) L 05/23/19 20:05 Acetaminophen 7.7 05/23/19 20:05 Influenza A (Rapid) Negative (Negative) 05/23/19 20:17 Influenza B (Rapid) Negative (Negative) 05/23/19 20:17 Will start Levaquin 750 mg. 05/23/19 23:53 D/w Dr. Weir who accepts the patient for admission. Discharge - Discharge Information Problems reviewed: Yes Clinical Impression/Diagnosis: AMS (altered mental status), UTI (urinary tract infection), Generalized weakness Condition: Stable - Admission Yes - Follow up/Referral - Patient Discharge Instructions - Post Discharge Activity
[2019-05-23] MEDS ORDERED: SODIUM CHLORIDE 0.9% 500 ML INFUS.BAG IV ONE (19:54)
[2019-05-23 20:44] LABS: BASO % 0.4 % (0-2.0); EOS % 1.3 % (0-4.5); HEMATOCRIT 36.6 % (35.4-49); HEMOGLOBIN 12.4 GM/dL (11.7-16.9); LYMPH % 23.1 % (8-40); MCH 32.3 pg (25.7-33.7); MCHC 33.8 g/dl (32.0-35.9); MEAN CELL VOLUME 95.6 fl (80-96); MEAN PLT VOLUME 9.2 fl (7.5-11.1); MONO % 6.8 % (3.8-10.2); NEUT % 68.4 % (42.8-82.8); PLATELET COUNT 189 K/MM3 (134-434); RBC 3.82 M/mm3 (4.00-5.60); RDW 13.7 % (11.9-15.9); WHITE BLOOD COUNT 10.3 K/mm3 (4.0-10.0)
[2019-05-23 20:57] LABS: INR 1.27 (0.83-1.09)
[2019-05-23 21:15] LABS: ALBUMIN 3.1 g/dl (3.4-5.0); BILIRUBIN,TOTAL 0.6 mg/dL (0.2-1); BLOOD UREA NITROGEN 41.5 mg/dL (7-18); CALCIUM 8.9 mg/dL (8.5-10.1); CREATININE 2.1 mg/dL (0.55-1.3); TOT PROT 6.5 g/dl (6.4-8.2)
[2019-05-23 21:16] LABS: POTASSIUM 5.7 mmol/L (3.5-5.1)
[2019-05-23] MEDS ORDERED: INSULIN REGULAR HUMAN 100 UNITS/ML *VIAL IVPUSH ONE (22:09)
[2019-05-23] MEDS ORDERED: DEXTROSE 50%-WATER - 25 GM/50 ML VIAL IVPUSH ONE (22:10)
[2019-05-23 22:38] LABS: EPI CELLS 8.2 /HPF (0-5/HPF); HYALINE CASTS 9 /lpf (0-8); URINE APPEARANCE CLEAR; URINE BACTERIA 766.5 /hpf (NEGATIVE); URINE BILIRUBIN NEGATIVE (NEGATIVE); URINE COLOR YELLOW; URINE GLUCOSE (UA) NEGATIVE (NEGATIVE); URINE KETONE NEGATIVE (NEGATIVE); URINE LEUK ESTERASE 2+ (NEGATIVE); URINE NITRITE NEGATIVE (NEGATIVE); URINE PROTEIN NEGATIVE (NEGATIVE); URINE RBC 1 /hpf (0-4); URINE WBC 16 /hpf (0-5)
[2019-05-23] MEDS ORDERED: DEXTROSE 50%-WATER 25 GM/50 ML DISP.SYRIN ONE (22:41)
[2019-05-23] MEDS ORDERED: INSULIN REGULAR HUMAN 100 UNITS/ML *VIAL ONE (22:43)
--- NOTE | 2019-05-23 23:45 | PN ---
Teaching Attending Note Name of Resident: Sai Weir ATTENDING PHYSICIAN STATEMENT I saw and evaluated the patient. I reviewed the resident's note and discussed the case with the resident. I agree with the resident's findings and plan as documented. SUBJECTIVE: Patient is a 78 year old man with a PMH of Dementia, CHF, PE, CVA, CAD, HTN, HLD , Angina, Pacemaker placement, NIDDM, GERD and BPH brought from [facility] for lethargy and generalized weakness. History if limited because of dementia. He is confused and is unsure why he is in the ED and states that the only complaint he has is right shoulder pain and pain behind the scrotum. Denies chest pain, shortness of breath, abdominal pain, headache, dizziness, lower extremity swelling or dysuria. No history of alcohol, tobacco or illicit drug use. No sick contacts or recent travels. Had a bout of loose bowel movement in the ER. OBJECTIVE: Alert Vital Signs Period Temp Pulse Resp BP Sys/Muñoz Pulse Ox Last 24 Hr 97.6 F 59-60 18-18 96-112/48-53 96-96 HEENT: No Jaundice, eye redness or discharge, PERRLA, EOMI. Normocephalic, atraumatic. External ears are normal and hearing is grossly intact. No nasal discharge. Neck: Supple, nontender. No palpable adenopathy or thyromegaly. No JVD Chest: Good effort. Clear to auscultation and percussion. Heart: Regular. No S3, rub or murmur Abdomen: Not distended, soft, nontender and no HSM. No rebound or guarding. Normal bowel sounds. Ext: Peripheral pulses intact. No leg edema. Erythema behind scrotum, skin breakdown and tender. Skin: Warm and dry. No petechiae, rash or ecchymosis. Neuro: Alert. Oriented to person. CN 2-12 grossly intact. Sensation grossly intact in all four extremities and DTR are symmetric. Psych: Appropriate mood and affect. Good insight. Current Medications Generic Name Dose Route Start Last Admin Trade Name Freq PRN Reason Stop Dose Admin Bacitracin 1 applic 05/24/19 10:00 Bacitracin - TP DAILY [facility] Sodium Chloride 1,000 mls @ 42 mls/hr 05/24/19 00:45 Normal Saline - IV ASDIR [facility] Home Medications Medication Instructions Recorded Apixaban [Eliquis -] 2.5 mg PO BID 12/09/15 Ranolazine [Ranexa] 500 mg PO BID 12/09/15 Tamsulosin HCl 0.4 mg PO HS 12/09/15 Isosorbide Mononitrate [Imdur -] 30 mg PO DAILY #30 tab.sr.24h 12/31/15 Gabapentin [Neurontin] 300 mg PO BID 02/24/16 Dorzolamide HCl [Trusopt 2% -] 1 drop OD TID 05/30/16 Donepezil HCl [Aricept -] 5 mg PO HS tablet 07/20/16 Memantine HCl [Namenda -] 10 mg PO HS tablet 07/20/16 Latanoprost 0.005% Eye Drops 1 drop OP HS 05/13/17 [Xalatan 0.005% Eye Drops -] Acetaminophen [Tylenol .Regular 650 mg PO Q4H PRN tablet 05/16/17 Strength -] Combigan 0.2%-0.5% Eye Drops 1 drop OS BID 05/23/19 Duloxetine HCl [Cymbalta -] 30 mg PO DAILY 05/23/19 Glipizide [Glipizide ER] 5 mg PO DAILY 05/23/19 Metolazone [Zaroxolyn -] 2.5 mg PO DAILY 05/23/19 Metoprolol Tartrate [Lopressor -] 25 mg PO BID 05/23/19 Nitrostat - 05/23/19 Spironolactone [Aldactone] 12.5 mg PO 05/23/19 Abnormal Lab Results 05/23/19 05/23/19 05/23/19 20:05 20:17 20:17 WBC 10.3 H RBC 3.82 L PT with INR INR Potassium Anion Gap BUN Creatinine Random Glucose Troponin I 0.08 H Albumin Ur Leukocyte Esterase Salicylates < 1.7 L 05/23/19 05/23/19 05/23/19 20:17 20:17 21:28 WBC RBC PT with INR 15.00 H INR 1.27 H Potassium 5.7 H Anion Gap 6 L BUN 41.5 H Creatinine 2.1 H Random Glucose 158 H Troponin I Albumin 3.1 L Ur Leukocyte Esterase 2+ H Salicylates ASSESSMENT AND PLAN: 1. UTI - Weakness and altered mental status likely toxic metabolic encephalopathy due to UTI and ?dehydration. Being hydrated gently. Treat UTI with Rocephin and send stool studies including C.Diff, Ova&Parasites and Leukocytes. CT scan of head shows no acute intracranial pathology, small chronic bilateral thalamic and left basal ganglia infarcts, moderate periventricular and subcortical chronic microvascular ischemic changes. No definite interval change compared to head CT scan on 05/13/2017. Flu swab is negative. CXR shows no acute intrathoracic pathology, cardiomegaly, left upper chest pacemaker and possible left pleural effusion. XR right shoulder shows no acute fracture or subluxation. EKG shows atrial-ventricular paced rhythm, wide ventricular rhythm, RBBB (not seen on prior EKG 2017), no ST elevation, 60 bpm. Troponin elevation likely due to demand ischemia and/or decreased clearance. Will treat scrotal erythema/pain with miconazole cream. Get TSH. Will continue comprehensive care for all of patients comorbid conditions including Eliquis for PE. 2. Hypoalbuminemia - Possibly due to combined effects of malnutrition and inflammation associated with comorbid chronic conditions. Will ensure adequate dietary protein intake and also consult channel opener outsoles. 3. Uncontrolled DM For now, we will hold the home diabetes drugs and implement sliding scale insulin regimen. Provide comprehensive diabetes care with patient teaching and counseling about the importance of adherence to prescribed diabetes regimen, euglycemia, eye care and foot care. 4. 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 KAYLEY possibly due to volume loss. Got glucose and insulin in the ER to treat hyperkalemia. Monitor urine output as he is hydrated. Will consult nephrology and avoid nephrotoxic agents such as NSAIDS, aminoglycosides, contrast dyes and certain Alternative medicine products. 5. Hypertension - Restart suitable outpatient antihypertensive drugs when clinically appropriate. Revise regimen to ensure tnxdo-[id number]-[id number] excellent BP control and branch credit counselor patient on the injurious effects of uncontrolled hypertension. Nonpharmacologic measures to control hypertension like weight loss , salt restriction and exercise discussed. Importance of adherence to treatment regimen and attainment of normotension emphasized. 6. DVT prophylaxis - On Eliquis for PE. 7. Advance directives - Full code
[2019-05-24] MEDS ORDERED: SODIUM CHLORIDE 1,000 ML IV SCH (00:45)
--- NOTE | 2019-05-24 00:50 | HP ---
CHIEF COMPLAINT: lethargy, weakness, slowness to repsonse PCP: Dr. Lawson HISTORY OF PRESENT ILLNESS: Pt. is a 78 y.o. M w/ PMHx. of HFpEF, CAD (s/p PPM) , HTN, HLD, Hx. of PE, DM, GERD, CVA and BPH presents from [facility] by EMS for altered mental status. Pt. endorses "burning sensation in balls" and dizziness, "every once in awhile feels like the there is something in my head going around and around." Pt. endorses R. eye blindness. Pt. denies any pain in his chest, shortness of breath, abdominal pain, burning on urination, numbness/tingling in extremities. Pt. denies having a daughter, states that "sons belong to their father; I don't have a daughter that I know of." Daughter is POA according to chart and lives in [place]. ER course was notable for: (1) CBC, CMP, Trop, EKG (2) BCx, UA, UCx., Levaquin 750, 500cc NS (3) D50, 1 units Novolin Recent Travel: No PAST MEDICAL HISTORY: PAST SURGICAL HISTORY: PPM, Abdominal Surgery Social History: Smoking: Per chart, quit in 1999 Alcohol: ?, per chart none Drugs: ?, per chart none Allergies acetaminophen Allergy (Verified 05/23/19 19:04) oxycodone Allergy (Verified 05/23/19 19:04) Iqqyury-Ypf-Cuq Reductase Inhibitor Allergy (Verified 05/23/19 19:04) HOME MEDICATIONS: Home Medications Medication Instructions Recorded Apixaban [Eliquis -] 2.5 mg PO BID 12/09/15 Ranolazine [Ranexa] 500 mg PO BID 12/09/15 Tamsulosin HCl 0.4 mg PO HS 12/09/15 Isosorbide Mononitrate [Imdur -] 30 mg PO DAILY #30 tab.sr.24h 12/31/15 Gabapentin [Neurontin] 300 mg PO BID 02/24/16 Dorzolamide HCl [Trusopt 2% -] 1 drop OD TID 05/30/16 Donepezil HCl [Aricept -] 5 mg PO HS tablet 07/20/16 Memantine HCl [Namenda -] 10 mg PO HS tablet 07/20/16 Latanoprost 0.005% Eye Drops 1 drop OP HS 05/13/17 [Xalatan 0.005% Eye Drops -] Acetaminophen [Tylenol .Regular 650 mg PO Q4H PRN tablet 05/16/17 Strength -] Combigan 0.2%-0.5% Eye Drops 1 drop OS BID 05/23/19 Duloxetine HCl [Cymbalta -] 30 mg PO DAILY 05/23/19 Glipizide [Glipizide ER] 5 mg PO DAILY 05/23/19 Metolazone [Zaroxolyn -] 2.5 mg PO DAILY 05/23/19 Metoprolol Tartrate [Lopressor -] 25 mg PO BID 05/23/19 Nitrostat - 05/23/19 Spironolactone [Aldactone] 12.5 mg PO 05/23/19 REVIEW OF SYSTEMS as above PHYSICAL EXAMINATION Vital Signs - 24 hr 05/23/19 05/23/19 19:02 22:16 Temperature 97.6 F Pulse Rate 60 Pulse Rate [ 59 L Right] Respiratory 18 18 Rate Blood Pressure 96/53 L Blood Pressure 112/48 L [Left Arm] O2 Sat by Pulse 96 96 Oximetry (%) GENERAL: Awake, alert, and oriented to name only, in mild distress 2/2 pain. HEAD: Normal with no signs of trauma. EYES: Pt. states R. eye is blind. Sclera anicteric, conjunctiva clear. No lid lag. EARS, NOSE, THROAT: Oropharynx clear without exudates. Moist mucous membranes w / upper and lower dentures. NECK: Normal range of motion LUNGS: Breath sounds equal, clear to auscultation bilaterally. No wheezes, and no crackles. No accessory muscle use. HEART: Regular rate and rhythm, normal S1 and S2 without murmur ABDOMEN: Soft, nontender, not distended, normoactive bowel sounds, no guarding, no rebound, no masses. Vertical surgical scar GENITOUINARY: posterior scrotal erythema and tenderness to palpation MUSCULOSKELETAL: No CVA tenderness. UPPER EXTREMITIES: 2+ radial pulses, warm, well-perfused. No cyanosis. No clubbing. No peripheral edema. LOWER EXTREMITIES: 2+ dorsal pedal pulses, warm, well-perfused. No calf tenderness. No peripheral edema. NEUROLOGICAL: Normal speech. No focal deficits appreciated. PSYCHIATRIC: Cooperative. Good eye contact. SKIN: Warm, dry, Laboratory Results - last 24 hr 05/23/19 05/23/19 05/23/19 20:03 20:05 20:05 WBC RBC Hgb Hct MCV MCH MCHC RDW Plt Count MPV Absolute Neuts (auto) Neutrophils % Lymphocytes % Monocytes % Eosinophils % Basophils % Nucleated RBC % PT with INR INR PTT (Actin FS) Sodium Potassium Chloride Carbon Dioxide Anion Gap BUN Creatinine Est GFR (CKD-EPI)AfAm Est GFR (CKD-EPI)NonAf Random Glucose Lactic Acid 1.5 Calcium Total Bilirubin AST ALT Alkaline Phosphatase Creatine Kinase Troponin I Total Protein Albumin Urine Color Urine Appearance Urine pH Ur Specific Dexter Urine Protein Urine Glucose (UA) Urine Ketones Urine Blood Urine Nitrite Urine Bilirubin Urine Urobilinogen Ur Leukocyte Esterase Urine WBC (Auto) Urine RBC (Auto) Urine Casts (Auto) U Epithel Cells (Auto) Urine Bacteria (Auto) Salicylates < 1.7 L Acetaminophen 7.7 Influenza A (Rapid) Influenza B (Rapid) 05/23/19 05/23/19 05/23/19 20:17 20:17 20:17 WBC 10.3 H RBC 3.82 L Hgb 12.4 Hct 36.6 MCV 95.6 MCH 32.3 MCHC 33.8 RDW 13.7 Plt Count 189 MPV 9.2 Absolute Neuts (auto) 7.0 Neutrophils % 68.4 Lymphocytes % 23.1 Monocytes % 6.8 Eosinophils % 1.3 Basophils % 0.4 Nucleated RBC % 0 PT with INR INR PTT (Actin FS) Sodium 136 Potassium 5.7 H Chloride 107 Carbon Dioxide 24 Anion Gap 6 L BUN 41.5 H Creatinine 2.1 H Est GFR (CKD-EPI)AfAm 34.16 Est GFR (CKD-EPI)NonAf 29.47 Random Glucose 158 H Lactic Acid Calcium 8.9 Total Bilirubin 0.6 AST 19 ALT 20 Alkaline Phosphatase 73 Creatine Kinase 49 Troponin I 0.08 H Total Protein 6.5 Albumin 3.1 L Urine Color Urine Appearance Urine pH Ur Specific Dexter Urine Protein Urine Glucose (UA) Urine Ketones Urine Blood Urine Nitrite Urine Bilirubin Urine Urobilinogen Ur Leukocyte Esterase Urine WBC (Auto) Urine RBC (Auto) Urine Casts (Auto) U Epithel Cells (Auto) Urine Bacteria (Auto) Salicylates Acetaminophen Influenza A (Rapid) Influenza B (Rapid) 05/23/19 05/23/19 05/23/19 20:17 20:17 21:28 WBC RBC Hgb Hct MCV MCH MCHC RDW Plt Count MPV Absolute Neuts (auto) Neutrophils % Lymphocytes % Monocytes % Eosinophils % Basophils % Nucleated RBC % PT with INR 15.00 H INR 1.27 H PTT (Actin FS) 34.0 Sodium Potassium Chloride Carbon Dioxide Anion Gap BUN Creatinine Est GFR (CKD-EPI)AfAm Est GFR (CKD-EPI)NonAf Random Glucose Lactic Acid Calcium Total Bilirubin AST ALT Alkaline Phosphatase Creatine Kinase Troponin I Total Protein Albumin Urine Color Yellow Urine Appearance Clear Urine pH 7.0 Ur Specific Dexter 1.018 Urine Protein Negative Urine Glucose (UA) Negative Urine Ketones Negative Urine Blood Negative Urine Nitrite Negative Urine Bilirubin Negative Urine Urobilinogen 1.0 Ur Leukocyte Esterase 2+ H Urine WBC (Auto) 16 Urine RBC (Auto) 1 Urine Casts (Auto) 9 U Epithel Cells (Auto) 8.2 Urine Bacteria (Auto) 766.5 Salicylates Acetaminophen Influenza A (Rapid) Negative Influenza B (Rapid) Negative ASSESSMENT/PLAN: Pt. is a 78 y.o. M w/ PMHx. of HFpEF, CAD (s/p PPM), HTN, HLD, Hx. of PE, DM, GERD, CVA and BPH presents from [facility] by EMS for altered mental status. #Toxic Metabolic Encephalopathy 2/2 UTI Given Levaquin 750mg in ED will start Ceftriaxone 1gm Daily for positive UA: 2+ LE, 16 WBCs, 766 bacteria IVF f/u BCx. and UCx. f/u TSH Head CT: neg. for acute pathology, shows small chronic bilateral thalamic and left basal ganglia infarcts, moderate periventricular and subcortical chronic microvascular ischemic changes. No definite interval change compared to CT on . CXR shows no acute intra thoracic pathology. #R. Shoulder Pain XR right shoulder shows no acute fracture or subluxation Pt. denies any shoulder pain on my examination #Diarrhea f/u C. Diff Cx. #HTN #HLD #Hx. of PE #DM #GERD #CVA #BPH #HFpEF #CAD s/p PPM #KAYLEY c/w home medications except Glipizide, will start ISS and monitor BGM ACHS; and Aldactone, until mild KAYLEY resolves, will treat KAYLEY with IVF and avoid nephrotoxic agents. EKG shows atrial-ventricular paced rhythm, wide ventricular rhythm, RBBB (not seen on prior EKG 2017), no ST elevation, 60 bpm. #FEN NS @ 42 given hx. HF monitor electrolytes , f/u Rpt. BMP for Hyperkalemia after treatment with 10units of insulin and D50 Daibetic Na restricted Diet #DVT Ppx. c/w Eliquis 2.5mg BID Visit type - Emergency Visit Emergency Visit: Yes ED Registration Date: 05/23/19 Care time: The patient presented to the Emergency Department on the above date and was hospitalized for further evaluation of their emergent condition. - New Patient This patient is new to me today: Yes Date on this admission: 05/23/19 - Critical Care Critical Care patient: No ATTENDING PHYSICIAN STATEMENT I saw and evaluated the patient. I reviewed the resident's note and discussed the case with the resident. I agree with the resident's findings and plan as documented. SUBJECTIVE: OBJECTIVE: ASSESSMENT AND PLAN:
[2019-05-24 02:41] VITALS: BMI 29.7
[2019-05-24] MEDS: DORZOLAMIDE 2% HCL OPHTHALMIC SOLUTION 10 ML BOTTLE OD SCH ×3 (06:27→21:02)
[2019-05-24] MEDS: INSULIN SLIDING SCALE (NOVOLOG) 1 VIAL SQ SCH ×4 (06:31→21:06)
[2019-05-24] MEDS ORDERED: DEXTROSE 5%-WATER - 50 ML IVPB ONE (09:10)
[2019-05-24] MEDS ORDERED: cefTRIAXone SODIUM 1 GM VIAL ONE (09:10)
[2019-05-24] MEDS: TAMSULOSIN HCL 0.4 MG CAP PO SCH (09:31)
[2019-05-24] MEDS: DULoxetine HCL 30 MG CAPSULE.DR PO SCH (09:31)
[2019-05-24] MEDS: RANOLAZINE E.R. 500 MG TABLET (FP) PO SCH ×2 (09:31→21:04)
[2019-05-24] MEDS: GABAPENTIN 300 MG CAPSULE PO SCH ×2 (09:31→21:04)
[2019-05-24] MEDS: ISOSORBIDE MONONITRATE 30 MG TAB.SR.24H (FP) PO SCH (09:32)
[2019-05-24] MEDS: CEFTRIAXONE 1 GM in DEXTROSE 5%-WATER - 50 ML IVPB SCH (09:32)
[2019-05-24] MEDS: BACITRACIN 0.9 GM PACKET TP SCH (09:32)
[2019-05-24] MEDS: APIXABAN 2.5 MG TABLET PO SCH ×2 (09:32→21:09)
[2019-05-24] MEDS: METOPROLOL TARTRATE 25 MG TABLET (FP) PO SCH ×2 (09:32→21:04)
[2019-05-24] MEDS ORDERED: PATIENT'S OWN MEDICATION (NON-FORMULARY) (Combigan 0.2%-0.5% Eye Drops 1 DROP) OS SCH (10:00)
[2019-05-24] MEDS ORDERED: SPIRONOLACTONE 25 MG TABLET (FP) PO SCH (10:00)
--- NOTE | 2019-05-24 10:57 | PN ---
Progress Note (short form) - Note Progress Note: Patient is a 78yom with PMHx. of HFpEF, CAD (s/p PPM), HTN, HLD, Hx. of PE, DM , GERD, CVA and BPH presents from [facility] by EMS for altered mental status. Patient looks confused , unknown his baseline. Vital Signs Temperature 98 F 05/24/19 10:21 Pulse Rate 83 05/24/19 10:21 Respiratory Rate 18 05/24/19 10:21 Blood Pressure 134/58 L 05/24/19 10:21 O2 Sat by Pulse Oximetry (%) 100 05/24/19 09:00 GENERAL: The patient is awake, alert, and fully oriented, in no acute distress. HEAD: Normal with no signs of trauma. EYES: Right eye blindness , extraocular movements intact, sclera anicteric, conjunctiva clear. ENT: Ears normal, oropharynx clear without exudates, moist mucous membranes. NECK: Trachea midline, full range of motion, supple. LUNGS: Breath sounds equal, clear to auscultation bilaterally, no wheezes, no crackles, no accessory muscle use. HEART: Regular rate and rhythm, S1, S2 without murmur, rub or gallop. ABDOMEN: Soft, NT,ND, normoactive bowel sounds, no guarding, no rebound, no hepatosplenomegaly, no masses. EXTREMITIES: 2+ pulses, warm, well-perfused, no edema. NEUROLOGICAL: Cranial nerves II through XII grossly intact. Normal speech, gait not observed. PSYCH: Normal mood, normal affect. SKIN: Warm, dry, normal turgor, no rashes or lesions noted CBCD WBC 10.3 K/mm3 (4.0-10.0) H 05/23/19 20:17 RBC 3.82 M/mm3 (4.00-5.60) L 05/23/19 20:17 Hgb 12.4 GM/dL (11.7-16.9) 05/23/19 20:17 Hct 36.6 % (35.4-49) 05/23/19 20:17 MCV 95.6 fl (80-96) 05/23/19 20:17 MCHC 33.8 g/dl (32.0-35.9) 05/23/19 20:17 RDW 13.7 % (11.9-15.9) 02/28/20 20:17 Plt Count 189 K/MM3 (134-434) 05/23/19 20:17 MPV 9.2 fl (7.5-11.1) 05/23/19 20:17 CMP Sodium 136 mmol/L (136-145) 05/23/19 20:17 Potassium 5.7 mmol/L (3.5-5.1) H 05/23/19 20:17 Chloride 107 mmol/L (98-107) 05/23/19 20:17 Carbon Dioxide 24 mmol/L (21-32) 05/23/19 20:17 Anion Gap 6 MMOL/L (8-16) L 05/23/19 20:17 BUN 41.5 mg/dL (7-18) H 05/23/19 20:17 Creatinine 2.1 mg/dL (0.55-1.3) H 05/23/19 20:17 Random Glucose 158 mg/dL (74-106) H 05/23/19 20:17 Calcium 8.9 mg/dL (8.5-10.1) 05/23/19 20:17 Total Bilirubin 0.6 mg/dL (0.2-1) 05/23/19 20:17 AST 19 U/L (15-37) 05/23/19 20:17 ALT 20 U/L (13-61) 05/23/19 20:17 Alkaline Phosphatase 73 U/L (45-117) 05/23/19 20:17 Total Protein 6.5 g/dl (6.4-8.2) 05/23/19 20:17 Albumin 3.1 g/dl (3.4-5.0) L 05/23/19 20:17 CARDIAC ENZYMES Creatine Kinase 49 U/L (26-308) 05/23/19 20:17 Troponin I 0.08 ng/ml (0.00-0.05) H 05/23/19 20:17 Current Medications Generic Name Dose Route Start Last Admin Trade Name Freq PRN Reason Stop Dose Admin Apixaban 2.5 mg 05/24/19 10:00 05/24/19 09:32 Eliquis - PO 2.5 mg BID ROXANNA Administration Bacitracin 0.9 gm 05/24/19 10:00 05/24/19 09:32 Bacitracin - TP 0.9 gm DAILY ROXANNA Administration Brimonidine Tartrate 1 drop 05/24/19 10:00 Alphagan 0.2% - OS BID ROXANNA Donepezil HCl 5 mg 05/24/19 22:00 Aricept - PO HS ROXANNA Dorzolamide HCl 1 drop 05/24/19 06:00 05/24/19 06:27 Trusopt 2% OD Not Given TID ROXANNA Duloxetine HCl 30 mg 05/24/19 10:00 05/24/19 09:31 Cymbalta - PO 30 mg DAILY ROXANNA Administration Gabapentin 300 mg 05/24/19 10:00 05/24/19 09:31 Neurontin - PO 300 mg BID ROXANNA Administration Sodium Chloride 1,000 mls @ 42 mls/hr 05/24/19 00:45 05/24/19 03:11 Normal Saline - IV 42 mls/hr ASDIR ROXANNA Administration Ceftriaxone Sodium 1 gm/ 50 mls @ 100 mls/hr 05/24/19 10:00 05/24/19 09:32 Dextrose IVPB 100 mls/hr DAILY ROXANNA Administration Protocol Insulin Aspart 1 vial 05/24/19 07:00 05/24/19 06:31 Novolog Vial Sliding Scale - SQ Not Given ACHS [facility] Protocol Isosorbide Mononitrate 30 mg 05/24/19 10:00 05/24/19 09:32 Imdur - PO 30 mg DAILY ROXANNA Administration Latanoprost 1 drop 05/24/19 22:00 Xalatan 0.005% Eye Drops - OU HS [facility] Memantine 10 mg 05/24/19 22:00 Namenda - PO HS [facility] Metolazone 2.5 mg 05/24/19 10:00 Zaroxolyn - PO DAILY [facility] Metoprolol Tartrate 25 mg 05/24/19 10:00 05/24/19 09:32 Lopressor - PO 25 mg BID ROXANNA Administration Ranolazine 500 mg 05/24/19 10:00 05/24/19 09:31 Ranexa - PO 500 mg BID ROXANNA Administration Spironolactone 12.5 mg 05/24/19 10:00 Aldactone - PO DAILY [facility] Tamsulosin HCl 0.4 mg 05/24/19 08:30 05/24/19 09:31 Flomax - PO 0.4 mg DAILY@0830 ROXANNA Administration Timolol Maleate 1 drop 05/24/19 10:00 Timoptic 0.5% OS BID [facility] Home Medications Medication Instructions Recorded Apixaban [Eliquis -] 2.5 mg PO BID 12/09/15 Ranolazine [Ranexa] 500 mg PO BID 12/09/15 Tamsulosin HCl 0.4 mg PO HS 12/09/15 Isosorbide Mononitrate [Imdur -] 30 mg PO DAILY #30 tab.sr.24h 12/31/15 Gabapentin [Neurontin] 300 mg PO BID 02/24/16 Dorzolamide HCl [Trusopt 2% -] 1 drop OD TID 05/30/16 Donepezil HCl [Aricept -] 5 mg PO HS tablet 07/20/16 Memantine HCl [Namenda -] 10 mg PO HS tablet 07/20/16 Latanoprost 0.005% Eye Drops 1 drop OP HS 05/13/17 [Xalatan 0.005% Eye Drops -] Acetaminophen [Tylenol .Regular 650 mg PO Q4H PRN tablet 05/16/17 Strength -] Combigan 0.2%-0.5% Eye Drops 1 drop OS BID 05/23/19 Duloxetine HCl [Cymbalta -] 30 mg PO DAILY 05/23/19 Glipizide [Glipizide ER] 5 mg PO DAILY 05/23/19 Metolazone [Zaroxolyn -] 2.5 mg PO DAILY 05/23/19 Metoprolol Tartrate [Lopressor -] 25 mg PO BID 05/23/19 Nitrostat - 05/23/19 Spironolactone [Aldactone] 12.5 mg PO 05/23/[address]: neg. for acute pathology, shows small chronic bilateral thalamic and left basal ganglia infarcts, moderate periventricular and subcortical chronic microvascular ischemic changes. No definite interval change compared to CT on . CXR shows no acute intra thoracic pathology. EKG shows atrial-ventricular paced rhythm, wide ventricular rhythm, RBBB (not seen on prior EKG 2017), no ST elevation, 60 bpm. Assessment and plan: Pt. is a 78 y.o. M w/ PMHx. of HFpEF, CAD (s/p PPM), HTN, HLD, Hx. of PE, DM, GERD, CVA and BPH presents from [facility] by EMS for altered mental status. #Toxic Metabolic Encephalopathy due to UTI s/p Levaquin 750mg in ED # Acute UTI will continue with Ceftriaxone 1gm IV daily , f/u BCx. and UCx. #R. Shoulder Pain: XR right shoulder shows no acute fracture or subluxation #Diarrhea:f/u C. Diff Cx. #HTN continue home meds #HLD: continue lipitor #Hx. of PE on Eliquis #DM: SS with coverage #GERD #CVA : on Eliquis #HFpEF: on zarozylyn/spironolacton #CAD s/p PPM #KAYLEY: creatinine 2.1 will continue to monitor #Glaucoma Hx continue home meds. DVT Ppx: Eliquis 2.5mg BID Visit type - Emergency Visit Emergency Visit: Yes ED Registration Date: 05/23/19 Care time: The patient presented to the Emergency Department on the above date and was hospitalized for further evaluation of their emergent condition. - New Patient This patient is new to me today: Yes Date on this admission: 05/24/19 - Critical Care Critical Care patient: No - Discharge Referral Referred to [facility] Med P.C.: No
[2019-05-24] MEDS ORDERED: PT OWN MED DRAWER 7, Y5N ONE ×2 (13:07→21:08)
[2019-05-24] MEDS: BRIMONIDINE TARTRATE 0.2% OPHTHALMIC 5 ML BOTTLE OS SCH ×2 (13:20→21:01)
[2019-05-24] MEDS: METOLAZONE 2.5 MG TABLET (FP) PO SCH (13:20)
[2019-05-24] MEDS: TIMOLOL 0.5% OPHTHALMIC SOL 5 ML BOTTLE OS SCH ×2 (13:21→22:56)
--- NOTE | 2019-05-24 13:29 | EKG ---
Test Reason : Blood Pressure : / mmHG Vent. Rate : 060 BPM Atrial Rate : 060 BPM P-R Int : 240 ms QRS Dur : 162 ms QT Int : 554 ms P-R-T Axes : 000 266 053 degrees QTc Int : 554 ms AV dual-paced rhythm RIGHT BUNDLE BRANCH BLOCK CANNOT RULE OUT INFERIOR INFARCT , AGE UNDETERMINED ABNORMAL ECG Confirmed by LAVONNE LOJA MD ([id number]) on 05/24/2019 1:28:46 PM Referred By: Confirmed By:LAVONNE LOJA MD
--- NOTE | 2019-05-24 14:38 | CON.NEURO ---
Consult - Past Medical History [employer]: Yes: Dementia Cardio/Vascular: Yes: CAD, CHF, HTN, Hyperlipdemia, Other (PPM Cardiomyopathy) Gastrointestinal: Yes: GERD Renal/: Yes: Renal Failure, BPH Psych: Yes: Depression Musculoskeletal: Yes: Other (Peripheral neuropathy) Rheumatology: Yes: Other (Peripheral neuropathy) Endocrine: Yes: Diabetes Mellitus - Past Surgical History Past Surgical History: Yes: Permanent Pacemaker - Alcohol/Substance Use Hx Alcohol Use: No - Smoking History Smoking history: Unknown if ever smoked Have you smoked in the past 12 months: No If you are a former smoker, when did you quit?: 1999 approx - Social History Usual Living Arrangement: Snf ADL: Support Services History of Recent Travel: No Home Medications - Allergies Allergies/Adverse Reactions: Allergies Allergy/AdvReac Type Severity Reaction Status Date / Time acetaminophen Allergy Verified 05/23/19 19:04 oxycodone Allergy Verified 05/23/19 19:04 Ymevjyl-Btv-Csa Reductase Allergy Verified 05/23/19 19:04 Inhibitor - Home Medications Home Medications: Ambulatory Orders Apixaban [Eliquis -] 2.5 mg PO BID 12/09/15 Ranolazine [Ranexa] 500 mg PO BID 12/09/15 Tamsulosin HCl 0.4 mg PO HS 12/09/15 Isosorbide Mononitrate [Imdur -] 30 mg PO DAILY #30 tab.sr.24h 12/31/15 Gabapentin [Neurontin] 300 mg PO BID 02/24/16 Dorzolamide HCl [Trusopt 2% -] 1 drop OD TID 05/30/16 Donepezil HCl [Aricept -] 5 mg PO HS tablet 07/20/16 Memantine HCl [Namenda -] 10 mg PO HS tablet 07/20/16 Latanoprost 0.005% Eye Drops [Xalatan 0.005% Eye Drops -] 1 drop OP HS 05/13/17 Acetaminophen [Tylenol .Regular Strength -] 650 mg PO Q4H PRN tablet 05/16/17 Combigan 0.2%-0.5% Eye Drops 1 drop OS BID 05/23/19 Duloxetine HCl [Cymbalta -] 30 mg PO DAILY 05/23/19 Glipizide [Glipizide ER] 5 mg PO DAILY 05/23/19 Metolazone [Zaroxolyn -] 2.5 mg PO DAILY 05/23/19 Metoprolol Tartrate [Lopressor -] 25 mg PO BID 05/23/19 Nitrostat - 05/23/19 Spironolactone [Aldactone] 12.5 mg PO 05/23/19 Physical Exam-Neuro Vital Signs: Vital Signs Temperature 98 F 05/24/19 10:21 Pulse Rate 83 05/24/19 10:21 Respiratory Rate 18 05/24/19 10:21 Blood Pressure 134/58 L 05/24/19 10:21 O2 Sat by Pulse Oximetry (%) 100 05/24/19 09:00 Labs: CBC, BMP 05/23/19 20:17 05/23/19 20:17 INR, PTT INR 1.27 (0.83-1.09) H 05/23/19 20:17 Assessment/Plan cc Abnormal ct findings and stroke HPI 78 year old male [place] resident , with history of Demenita, CAD,HTN,HLD,PE,DM, Stroke, GERD, BPH. Patient came with lethargy , weakness, patient is having dizziness. Patient is found to have uti and on abx. Patient is on liquis, aricept , namenda. There is no history of high grade fever, headache, seizure or new focal neurological sypmtoms ( hemiparesis or facial droopines). His ct head showed bilateral basal ganglia old ischemic stroke. PAST MEDICAL HISTORY: as above PAST SURGICAL HISTORY: PPM, Abdominal Surgery Social History: Smoking: Per chart, quit in 1999 Alcohol: ?, per chart none Drugs: ?, per chart none Allergies acetaminophen Allergy (Verified 05/23/19 19:04) oxycodone Allergy (Verified 05/23/19 19:04) Injzsvk-Pnh-Efm Reductase Inhibitor Allergy (Verified 05/23/19 19:04) HOME MEDICATIONS: Home Medications Medication Instructions Recorded Apixaban [Eliquis -] 2.5 mg PO BID 12/09/15 Ranolazine [Ranexa] 500 mg PO BID 12/09/15 Tamsulosin HCl 0.4 mg PO HS 12/09/15 Isosorbide Mononitrate [Imdur -] 30 mg PO DAILY #30 tab.sr.24h 12/31/15 Gabapentin [Neurontin] 300 mg PO BID 02/24/16 Dorzolamide HCl [Trusopt 2% -] 1 drop OD TID 05/30/16 Donepezil HCl [Aricept -] 5 mg PO HS tablet 07/20/16 Memantine HCl [Namenda -] 10 mg PO HS tablet 07/20/16 Latanoprost 0.005% Eye Drops 1 drop OP HS 05/13/17 [Xalatan 0.005% Eye Drops -] Acetaminophen [Tylenol .Regular 650 mg PO Q4H PRN tablet 05/16/17 Strength -] Combigan 0.2%-0.5% Eye Drops 1 drop OS BID 05/23/19 Duloxetine HCl [Cymbalta -] 30 mg PO DAILY 05/23/19 Glipizide [Glipizide ER] 5 mg PO DAILY 05/23/19 Metolazone [Zaroxolyn -] 2.5 mg PO DAILY 05/23/19 Metoprolol Tartrate [Lopressor -] 25 mg PO BID 05/23/19 Nitrostat - 05/23/19 Spironolactone [Aldactone] 12.5 mg PO 05/23/19 ROS,FH, SH reviewed in chart NEUROLOGICAL EXAMINATION Alert oriented x 0, patient is agitated and talking non stop, there is no neck stiffness, no seizure like activity seen, vss afebrile eomi, pupils reactive moving all ext reflex are generalized diminished planter mute ct head showed old bilateral ischemic stroke Plan: 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 Unlikley to be Meningitis, status epilepticus or acute stroke. Plan: no further work up need to be done - continue eliquis, aricept and namenda - low dose lipitor can be added - supportive care
[2019-05-24] MEDS ORDERED: INSULIN (NOVOLOG) ASPART 100 UNITS/ML 10ML VIAL ONE (20:57)
[2019-05-24] MEDS: LATANOPROST 0.005% OPHTH SOLN 2.5ML BOTTLE OU SCH (21:01)
[2019-05-24] MEDS: DONEPEZIL HCL 5 MG TABLET (FP) PO SCH (21:04)
[2019-05-24] MEDS: MEMANTINE HCL 10 MG TABLET (FP) PO SCH (21:04)
[2019-05-25] MEDS: INSULIN SLIDING SCALE (NOVOLOG) 1 VIAL SQ SCH ×4 (06:16→21:47)
[2019-05-25] MEDS: DORZOLAMIDE 2% HCL OPHTHALMIC SOLUTION 10 ML BOTTLE OD SCH ×3 (06:17→21:38)
[2019-05-25] MEDS ORDERED: cefTRIAXone SODIUM 1 GM VIAL ONE (08:57)
[2019-05-25] MEDS ORDERED: DEXTROSE 5%-WATER - 50 ML IVPB ONE (08:57)
[2019-05-25 09:12] LABS: BASO % 0.5 % (0-2.0); EOS % 1.7 % (0-4.5); HEMATOCRIT 39.1 % (35.4-49); HEMOGLOBIN 13.1 GM/dL (11.7-16.9); LYMPH % 28.1 % (8-40); MCHC 33.5 g/dl (32.0-35.9); MEAN CELL VOLUME 95.5 fl (80-96); MEAN PLT VOLUME 10.3 fl (7.5-11.1); MONO % 9.7 % (3.8-10.2); PLATELET COUNT 180 K/MM3 (134-434); RBC 4.09 M/mm3 (4.00-5.60); RDW 14.3 % (11.9-15.9)
[2019-05-25] MEDS: CEFTRIAXONE 1 GM in DEXTROSE 5%-WATER - 50 ML IVPB SCH (09:34)
[2019-05-25] MEDS: TAMSULOSIN HCL 0.4 MG CAP PO SCH (09:35)
[2019-05-25] MEDS: APIXABAN 2.5 MG TABLET PO SCH ×2 (09:35→21:36)
[2019-05-25] MEDS: BRIMONIDINE TARTRATE 0.2% OPHTHALMIC 5 ML BOTTLE OS SCH ×2 (09:35→21:38)
[2019-05-25] MEDS: GABAPENTIN 300 MG CAPSULE PO SCH ×2 (09:35→21:36)
[2019-05-25] MEDS: METOPROLOL TARTRATE 25 MG TABLET (FP) PO SCH ×2 (09:35→21:37)
[2019-05-25] MEDS: RANOLAZINE E.R. 500 MG TABLET (FP) PO SCH ×2 (09:35→21:37)
[2019-05-25] MEDS: ISOSORBIDE MONONITRATE 30 MG TAB.SR.24H (FP) PO SCH (09:35)
[2019-05-25] MEDS: DULoxetine HCL 30 MG CAPSULE.DR PO SCH (09:35)
[2019-05-25] MEDS: TIMOLOL 0.5% OPHTHALMIC SOL 5 ML BOTTLE OS SCH ×2 (09:36→21:38)
[2019-05-25] MEDS: BACITRACIN 0.9 GM PACKET TP SCH (09:36)
[2019-05-25] MEDS: METOLAZONE 2.5 MG TABLET (FP) PO SCH (09:38)
[2019-05-25 09:45] LABS: ALBUMIN 3.2 g/dl (3.4-5.0); BLOOD UREA NITROGEN 32.9 mg/dL (7-18); CALCIUM 8.8 mg/dL (8.5-10.1); CREATININE 1.9 mg/dL (0.55-1.3); MAGNESIUM 2.3 mg/dL (1.8-2.4); PHOSPHOROUS 3.6 mg/dL (2.5-4.9); POTASSIUM 5.2 mmol/L (3.5-5.1); TOT PROT 6.6 g/dl (6.4-8.2)
--- NOTE | 2019-05-25 10:42 | PN ---
Progress Note (short form) - Note Progress Note: 78 [place] old male [place] resident , with history of Demenita, CAD,HTN,HLD,PE,DM, Stroke, GERD, BPH. Patient came with lethargy , weakness, patient is having dizziness. Patient is found to have uti and on abx. Patient is on liquis, aricept , namenda. There is no history of high grade fever, headache, seizure or new focal neurological sypmtoms ( hemiparesis or facial droopines). His ct head showed bilateral basal ganglia old ischemic stroke. Patient is less agitated today, and eating with aide. 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 continue current level of care, patient is better clinically. Plan: no further work up need to be done - continue eliquis, aricept and namenda - supportive care
--- NOTE | 2019-05-25 14:21 | PN ---
Physical Exam: SUBJECTIVE: Patient seen and examined at bedside. no acute complaints. denies pain OBJECTIVE: Vital Signs Period Temp Pulse Resp BP Sys/Muñoz Pulse Ox Last 24 Hr 97.8 F-97.8 F 62-98 18-19 121-141/55-69 100-100 GENERAL: The patient is in no acute distress. HEAD: Normal with no signs of trauma. LUNGS: Breath sounds equal, clear to auscultation bilaterally, no accessory muscle use. HEART: Regular rate and rhythm, S1, S2 without murmur, rub or gallop. ABDOMEN: Soft, nontender, nondistended, normoactive bowel sounds, no guarding EXTREMITIES: 2+ pulses, warm, well-perfused, no edema. SKIN: Warm, dry, normal turgor, no rashes or lesions noted CBC, BMP 05/25/19 08:10 05/25/19 08:10 Current Medications Apixaban (Eliquis -) 2.5 mg PO BID [facility] Last Admin: 05/25/19 09:35 Dose: 2.5 mg Bacitracin (Bacitracin -) 0.9 gm TP DAILY [facility] Last Admin: 05/25/19 09:36 Dose: 0.9 gm Brimonidine Tartrate (Alphagan 0.2% -) 1 drop OS BID [facility] Last Admin: 05/25/19 09:35 Dose: 1 drp Donepezil HCl (Aricept -) 5 mg PO HS [facility] Last Admin: 05/24/19 21:04 Dose: 5 mg Dorzolamide HCl (Trusopt 2%) 1 drop OD TID [facility] Last Admin: 05/25/19 06:17 Dose: 1 drop Duloxetine HCl (Cymbalta -) 30 mg PO DAILY [facility] Last Admin: 05/25/19 09:35 Dose: 30 mg Gabapentin (Neurontin -) 300 mg PO BID [facility] Last Admin: 05/25/19 09:35 Dose: 300 mg Ceftriaxone Sodium 1 gm/ (Dextrose) 50 mls @ 100 mls/hr IVPB DAILY [facility]; Protocol Last Admin: 05/25/19 09:34 Dose: 100 mls/hr Insulin Aspart (Novolog Vial Sliding Scale -) 1 vial SQ ACHS [facility]; Protocol Last Admin: 05/25/19 12:52 Dose: Not Given Isosorbide Mononitrate (Imdur -) 30 mg PO DAILY [facility] Last Admin: 05/25/19 09:35 Dose: 30 mg Latanoprost (Xalatan 0.005% Eye Drops -) 1 drop OU HS [facility] Last Admin: 05/24/19 21:01 Dose: 1 drop Memantine (Namenda -) 10 mg PO HS [facility] Last Admin: 05/24/19 21:04 Dose: 10 mg Metolazone (Zaroxolyn -) 2.5 mg PO DAILY [facility] Last Admin: 05/25/19 09:38 Dose: 2.5 mg Metoprolol Tartrate (Lopressor -) 25 mg PO BID [facility] Last Admin: 05/25/19 09:35 Dose: 25 mg Ranolazine (Ranexa -) 500 mg PO BID [facility] Last Admin: 05/25/19 09:35 Dose: 500 mg Spironolactone (Aldactone -) 12.5 mg PO DAILY [facility] Tamsulosin HCl (Flomax -) 0.4 mg PO DAILY@0830 [facility] Last Admin: 05/25/19 09:35 Dose: 0.4 mg Timolol Maleate (Timoptic 0.5%) 1 drop OS BID [facility] Last Admin: 05/25/19 09:36 Dose: 1 drp ASSESSMENT/PLAN: 78 yo M w/ PMH of HFpEF, CAD (s/p PPM), HTN, HLD, Hx. of PE, DM, GERD, CVA and BPH presents from [facility] by EMS for altered mental status. Acute Toxic Metabolic encephalopathy 2/ UTI - c/w Ceftriaxone, day 2 -pending final UCx - Head CT: neg. for acute pathology, shows small chronic bilateral thalamic and left basal ganglia infarcts, moderate periventricular and subcortical chronic microvascular ischemic changes. No definite interval change compared to CT on . -neuro recommendations appreciated - c/w aricept, namenda HTN -c/w imdur, lopressor , metozalone KAYLEY vs CKD - avoid nephrotoxic agents -continue to monitor -hold aldactone DM -hold home glipizide -ISS, BGM Diarrhea -cdif neg Hx of PE - on eliquis 2.5 BID HFpEF -c/w imdur, lopressor , ranexa , metozalone CAD s/p PPM -c/w imdur, lopressor , ranexa BPH -c/w flomax DVT Ppx. c/w Eliquis 2.5mg BID Visit type - Emergency Visit Emergency Visit: No - New Patient This patient is new to me today: Yes Date on this admission: 05/25/19 - Critical Care Critical Care patient: No - Discharge Referral Referred to [facility] Med P.C.: No ATTENDING PHYSICIAN STATEMENT I saw and evaluated the patient. I reviewed the resident's note and discussed the case with the resident. I agree with the resident's findings and plan as documented. SUBJECTIVE: OBJECTIVE: ASSESSMENT AND PLAN:
--- NOTE | 2019-05-25 20:13 | PN ---
Teaching Attending Note Name of Resident: Kat Francisco ATTENDING PHYSICIAN STATEMENT I saw and evaluated the patient. I reviewed the resident's note and discussed the case with the resident. I agree with the resident's findings and plan as documented. SUBJECTIVE: comfortable no acute distress Vital Signs Temperature 98.5 F 05/25/19 16:04 Pulse Rate 68 05/25/19 16:04 Respiratory Rate 20 05/25/19 16:04 Blood Pressure 138/68 05/25/19 16:04 O2 Sat by Pulse Oximetry (%) 100 05/25/19 09:00 GENERAL: The patient is awake, alert, and fully oriented, in no acute distress. HEAD: Normal with no signs of trauma. EYES: Right eye blindness , extraocular movements intact, sclera anicteric, conjunctiva clear. ENT: Ears normal, oropharynx clear without exudates, moist mucous membranes. NECK: Trachea midline, full range of motion, supple. LUNGS: Breath sounds equal, clear to auscultation bilaterally, no wheezes, no crackles, no accessory muscle use. HEART: Regular rate and rhythm, S1, S2 without murmur, rub or gallop. ABDOMEN: Soft, NT,ND, normoactive bowel sounds, no guarding, no rebound, no hepatosplenomegaly, no masses. EXTREMITIES: 2+ pulses, warm, well-perfused, no edema. NEUROLOGICAL: Cranial nerves II through XII grossly intact. Normal speech, gait not observed. PSYCH: Normal mood, normal affect. SKIN: Warm, dry, normal turgor, no rashes or lesions noted CBCD WBC 8.0 K/mm3 (4.0-10.0) 05/25/19 08:10 RBC 4.09 M/mm3 (4.00-5.60) 05/25/19 08:10 Hgb 13.1 GM/dL (11.7-16.9) 05/25/19 08:10 Hct 39.1 % (35.4-49) 05/25/19 08:10 MCV 95.5 fl (80-96) 05/25/19 08:10 MCHC 33.5 g/dl (32.0-35.9) 05/25/19 08:10 RDW 14.3 % (11.9-15.9) 05/25/19 08:10 Plt Count 180 K/MM3 (134-434) 05/25/19 08:10 MPV 10.3 fl (7.5-11.1) D 05/25/19 08:10 CMP Sodium 140 mmol/L (136-145) 05/25/19 08:10 Potassium 5.2 mmol/L (3.5-5.1) H 05/25/19 08:10 Chloride 112 mmol/L (98-107) H 05/25/19 08:10 Carbon Dioxide 22 mmol/L (21-32) 05/25/19 08:10 Anion Gap 6 MMOL/L (8-16) L 05/25/19 08:10 BUN 32.9 mg/dL (7-18) H 05/25/19 08:10 Creatinine 1.9 mg/dL (0.55-1.3) H 05/25/19 08:10 Random Glucose 88 mg/dL (74-106) 05/25/19 08:10 Calcium 8.8 mg/dL (8.5-10.1) 05/25/19 08:10 Total Bilirubin 1.0 mg/dL (0.2-1) 05/25/19 08:10 AST 23 U/L (15-37) 05/25/19 08:10 ALT 20 U/L (13-61) 05/25/19 08:10 Alkaline Phosphatase 72 U/L (45-117) 05/25/19 08:10 Total Protein 6.6 g/dl (6.4-8.2) 05/25/19 08:10 Albumin 3.2 g/dl (3.4-5.0) L 05/25/19 08:10 CARDIAC ENZYMES Creatine Kinase 49 U/L (26-308) 05/23/19 20:17 Troponin I 0.08 ng/ml (0.00-0.05) H 05/23/19 20:17 Home Medications Medication Instructions Recorded Apixaban [Eliquis -] 2.5 mg PO BID 12/09/15 Ranolazine [Ranexa] 500 mg PO BID 12/09/15 Tamsulosin HCl 0.4 mg PO HS 12/09/15 Isosorbide Mononitrate [Imdur -] 30 mg PO DAILY #30 tab.sr.24h 12/31/15 Gabapentin [Neurontin] 300 mg PO BID 02/24/16 Dorzolamide HCl [Trusopt 2% -] 1 drop OD TID 05/30/16 Donepezil HCl [Aricept -] 5 mg PO HS tablet 07/20/16 Memantine HCl [Namenda -] 10 mg PO HS tablet 07/20/16 Latanoprost 0.005% Eye Drops 1 drop OP HS 05/13/17 [Xalatan 0.005% Eye Drops -] Acetaminophen [Tylenol .Regular 650 mg PO Q4H PRN tablet 05/16/17 Strength -] Combigan 0.2%-0.5% Eye Drops 1 drop OS BID 05/23/19 Duloxetine HCl [Cymbalta -] 30 mg PO DAILY 05/23/19 Glipizide [Glipizide ER] 5 mg PO DAILY 05/23/19 Metolazone [Zaroxolyn -] 2.5 mg PO DAILY 05/23/19 Metoprolol Tartrate [Lopressor -] 25 mg PO BID 05/23/19 Nitrostat - 05/23/19 Spironolactone [Aldactone] 12.5 mg PO 05/23/19 Current Medications Generic Name Dose Route Start Last Admin Trade Name Freq PRN Reason Stop Dose Admin Apixaban 2.5 mg 05/24/19 10:00 05/25/19 09:35 Eliquis - PO 2.5 mg BID ROXANNA Administration Bacitracin 0.9 gm 05/24/19 10:00 05/25/19 09:36 Bacitracin - TP 0.9 gm DAILY R[facility]NA Administration Brimonidine Tartrate 1 drop 05/24/19 10:00 05/25/19 09:35 Alphagan 0.2% - OS 1 drp BID [facility] Administration Donepezil HCl 5 mg 05/24/19 22:00 05/24/19 21:04 Aricept - PO 5 mg HS [facility]NA Administration Dorzolamide HCl 1 drop 05/24/19 06:00 05/25/19 15:30 Trusopt 2% OD 1 drop TID ROX[facility]NA Administration Duloxetine HCl 30 mg 05/24/19 10:00 05/25/19 09:35 Cymbalta - PO 30 mg DAILY [facility] Administration Gabapentin 300 mg 05/24/19 10:00 05/25/19 09:35 Neurontin - PO 300 mg BID [facility] Administration Ceftriaxone Sodium 1 gm/ 50 mls @ 100 mls/hr 05/24/19 10:00 05/25/19 09:34 Dextrose IVPB 100 mls/hr DAILY [facility] Administration Protocol Insulin Aspart 1 vial 05/24/19 07:00 05/25/19 16:47 Novolog Vial Sliding Scale - SQ Not Given ACHS [facility] Protocol Isosorbide Mononitrate 30 mg 05/24/19 10:00 05/25/19 09:35 Imdur - PO 30 mg DAILY [facility] Administration Latanoprost 1 drop 05/24/19 22:00 05/24/19 21:01 Xalatan 0.005% Eye Drops - OU 1 drop HS [facility] Administration Memantine 10 mg 05/24/19 22:00 05/24/19 21:04 Namenda - PO 10 mg HS [facility] Administration Metolazone 2.5 mg 05/24/19 10:00 05/25/19 09:38 Zaroxolyn - PO 2.5 mg DAILY [facility] Administration Metoprolol Tartrate 25 mg 05/24/19 10:00 05/25/19 09:35 Lopressor - PO 25 mg BID [facility] Administration Ranolazine 500 mg 05/24/19 10:00 05/25/19 09:35 Ranexa - PO 500 mg BID [facility] Administration Spironolactone 12.5 mg 05/24/19 10:00 Aldactone - PO DAILY [facility] Tamsulosin HCl 0.4 mg 05/24/19 08:30 05/25/19 09:35 Flomax - PO 0.4 mg DAILY@0830 [facility] Administration Timolol Maleate 1 drop 05/24/19 10:00 05/25/19 09:36 Timoptic 0.5% OS 1 drp BID [facility] Administration Microbiology 05/25/19 09:00 Stool Clostridioides difficile Antigen - Final 05/25/19 09:00 Stool Clostridioides difficile Toxin Assay - Final 05/23/19 21:28 Urine - Urine Clean Catch Urine Culture - Preliminary Non Lactose Fermenting Gnb 05/23/19 21:25 Blood - Peripheral Venous Blood Culture - Preliminary NO GROWTH OBTAINED AFTER 24 HOURS, INCUBATION TO CONTINUE FOR 4 DAYS. 05/23/19 20:17 Blood - Peripheral Venous Blood Culture - Preliminary NO GROWTH OBTAINED AFTER 24 HOURS, INCUBATION TO CONTINUE FOR [address]: neg. for acute pathology, shows small chronic bilateral thalamic and left basal ganglia infarcts, moderate periventricular and subcortical chronic microvascular ischemic changes. No definite interval change compared to CT on . CXR shows no acute intra thoracic pathology. EKG shows atrial-ventricular paced rhythm, wide ventricular rhythm, RBBB (not seen on prior EKG 2017), no ST elevation, 60 bpm. Assessment and plan: Pt. is a 78 y.o. M w/ PMHx. of HFpEF, CAD (s/p PPM), HTN, HLD, Hx. of PE, DM, GERD, CVA and BPH presents from [facility] by EMS for altered mental status. #Toxic Metabolic Encephalopathy due to UTI s/p Levaquin 750mg in ED, on IV Rocephin continue # Acute UTI will continue with Ceftriaxone 1gm IV daily , f/u BCx. and UCx pending with sensitivity #R. Shoulder Pain: XR right shoulder shows no acute fracture or subluxation #Diarrhea: C. Diff Cx. negative, improved #HTN continue home meds #HLD: continue lipitor #Hx. of PE on Eliquis #DM: SS with coverage #GERD #CVA : on Eliquis #HFpEF: on zarozylyn/spironolactone continue #CAD s/p PPM #KAYLEY: creatinine 2.1-->1.9 today will continue to monitor #Glaucoma Hx continue home meds. DVT Ppx: Eliquis 2.5mg BID
[2019-05-25] MEDS: MEMANTINE HCL 10 MG TABLET (FP) PO SCH (21:37)
[2019-05-25] MEDS: DONEPEZIL HCL 5 MG TABLET (FP) PO SCH (21:37)
[2019-05-25] MEDS: LATANOPROST 0.005% OPHTH SOLN 2.5ML BOTTLE OU SCH (21:38)
[2019-05-26] MEDS: DORZOLAMIDE 2% HCL OPHTHALMIC SOLUTION 10 ML BOTTLE OD SCH ×2 (06:31→13:38)
[2019-05-26] MEDS: INSULIN SLIDING SCALE (NOVOLOG) 1 VIAL SQ SCH ×3 (06:32→17:13)
[2019-05-26 07:29] LABS: BLOOD UREA NITROGEN 27.6 mg/dL (7-18); CALCIUM 8.1 mg/dL (8.5-10.1); CREATININE 1.8 mg/dL (0.55-1.3); MAGNESIUM 2.1 mg/dL (1.8-2.4); PHOSPHOROUS 3.5 mg/dL (2.5-4.9); POTASSIUM 4.2 mmol/L (3.5-5.1)
--- NOTE | 2019-05-26 09:38 | PN ---
Physical Exam: SUBJECTIVE: Patient seen and examined at bedside. pt has no acute complaints OBJECTIVE: Vital Signs Period Temp Pulse Resp BP Sys/Muñoz Pulse Ox Last 24 Hr 97.8 F-98.5 F 60-86 18-20 124-140/60-78 100 GENERAL: The patient is awake, alert, and oriented to self, in no acute distress. HEAD: Normal with no signs of trauma. LUNGS: Breath sounds equal, clear to auscultation bilaterally, no accessory muscle use. HEART: Regular rate and rhythm, S1, S2 ABDOMEN: Soft, nontender, nondistended, normoactive bowel sounds, no guarding EXTREMITIES: 2+ pulses, warm, well-perfused, no edema. SKIN: Warm, dry, normal turgor, no rashes or lesions noted Laboratory Results 05/26/19 05/26/19 06:18 06:28 Sodium 142 Potassium 4.2 Chloride 112 H Carbon Dioxide 23 Anion Gap 7 L BUN 27.6 H Creatinine 1.8 H Est GFR (CKD-EPI)AfAm 41.16 Est GFR (CKD-EPI)NonAf 35.51 POC Glucometer 103 Random Glucose 99 Calcium 8.1 L Phosphorus 3.5 Magnesium 2.1 Total Bilirubin AST ALT Alkaline Phosphatase Total Protein Albumin Current Medications Apixaban (Eliquis -) 2.5 mg PO BID [facility] Last Admin: 05/25/19 21:36 Dose: 2.5 mg Bacitracin (Bacitracin -) 0.9 gm TP DAILY [facility] Last Admin: 05/25/19 09:36 Dose: 0.9 gm Brimonidine Tartrate (Alphagan 0.2% -) 1 drop OS BID [facility] Last Admin: 05/25/19 21:38 Dose: 1 drp Donepezil HCl (Aricept -) 5 mg PO HS [facility] Last Admin: 05/25/19 21:37 Dose: 5 mg Dorzolamide HCl (Trusopt 2%) 1 drop OD TID [facility] Last Admin: 05/26/19 06:31 Dose: 1 drop Duloxetine HCl (Cymbalta -) 30 mg PO DAILY [facility] Last Admin: 05/25/19 09:35 Dose: 30 mg Gabapentin (Neurontin -) 300 mg PO BID [facility] Last Admin: 05/25/19 21:36 Dose: 300 mg Ceftriaxone Sodium 1 gm/ (Dextrose) 50 mls @ 100 mls/hr IVPB DAILY [facility]; Protocol Last Admin: 05/25/19 09:34 Dose: 100 mls/hr Insulin Aspart (Novolog Vial Sliding Scale -) 1 vial SQ ACHS [facility]; Protocol Last Admin: 05/26/19 06:32 Dose: Not Given Isosorbide Mononitrate (Imdur -) 30 mg PO DAILY [facility] Last Admin: 05/25/19 09:35 Dose: 30 mg Latanoprost (Xalatan 0.005% Eye Drops -) 1 drop OU HS [facility] Last Admin: 05/25/19 21:38 Dose: 1 drop Memantine (Namenda -) 10 mg PO HS [facility] Last Admin: 05/25/19 21:37 Dose: 10 mg Metolazone (Zaroxolyn -) 2.5 mg PO DAILY [facility] Last Admin: 05/25/19 09:38 Dose: 2.5 mg Metoprolol Tartrate (Lopressor -) 25 mg PO BID [facility] Last Admin: 05/25/19 21:37 Dose: 25 mg Ranolazine (Ranexa -) 500 mg PO BID [facility] Last Admin: 05/25/19 21:37 Dose: 500 mg Spironolactone (Aldactone -) 12.5 mg PO DAILY [facility] Tamsulosin HCl (Flomax -) 0.4 mg PO DAILY@0830 [facility] Last Admin: 05/25/19 09:35 Dose: 0.4 mg Timolol Maleate (Timoptic 0.5%) 1 drop OS BID [facility] Last Admin: 05/25/19 21:38 Dose: 1 drp ASSESSMENT/PLAN: 78 yo M w/ PMH of HFpEF, CAD (s/p PPM), HTN, HLD, Hx. of PE, DM, GERD, CVA and BPH presents from [facility] by EMS for altered mental status. Acute Toxic Metabolic encephalopathy 04/27 UTI - c/w Ceftriaxone, day 3 - UCx growing non lactose fermenting GNB - Head CT: neg. for acute pathology, shows small chronic bilateral thalamic and left basal ganglia infarcts, moderate periventricular and subcortical chronic microvascular ischemic changes. No definite interval change compared to CT on . -neuro recommendations appreciated - c/w aricept, namenda HTN -c/w imdur, lopressor , metozalone KAYLEY vs CKD - avoid nephrotoxic agents -continue to monitor -hold aldactone DM -hold home glipizide -ISS, BGM Diarrhea -cdif neg Hx of PE - on eliquis 2.5 BID HFpEF -c/w imdur, lopressor , ranexa , metozalone CAD s/p PPM -c/w imdur, lopressor , ranexa BPH -c/w flomax DVT Ppx. c/w Eliquis 2.5mg BID ATTENDING PHYSICIAN STATEMENT I saw and evaluated the patient. I reviewed the resident's note and discussed the case with the resident. I agree with the resident's findings and plan as documented. SUBJECTIVE: OBJECTIVE: ASSESSMENT AND PLAN:
--- NOTE | 2019-05-26 10:07 | PN ---
Progress Note (short form) - Note Progress Note: 78 year old male NH resident , with history of Demenita, CAD,HTN,HLD,PE,DM, Stroke, GERD, BPH. Patient came with lethargy , weakness, patient is having dizziness. Patient is found to have uti and on abx. Patient is on liquis, aricept , namenda. There is no history of high grade fever, headache, seizure or new focal neurological sypmtoms ( hemiparesis or facial droopines). His ct head showed bilateral basal ganglia old ischemic stroke. Patient is sleepy as he has not slept in 24 hours prior day. 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 continue current level of care Plan: no further work up need to be done - continue eliquis, aricept and namenda - supportive care Thanking you so much Luis Jones MD
[2019-05-26 10:37] VITALS: PULSE 60
[2019-05-26] MEDS ORDERED: PT OWN MED DRAWER 7, Y5N ONE (10:45)
[2019-05-26] MEDS: METOPROLOL TARTRATE 25 MG TABLET (FP) PO SCH (10:50)
[2019-05-26] MEDS: TAMSULOSIN HCL 0.4 MG CAP PO SCH (10:50)
[2019-05-26] MEDS: APIXABAN 2.5 MG TABLET PO SCH (10:50)
[2019-05-26] MEDS: RANOLAZINE E.R. 500 MG TABLET (FP) PO SCH (10:50)
[2019-05-26] MEDS: DULoxetine HCL 30 MG CAPSULE.DR PO SCH (10:50)
[2019-05-26] MEDS: ISOSORBIDE MONONITRATE 30 MG TAB.SR.24H (FP) PO SCH (10:51)
[2019-05-26] MEDS: TIMOLOL 0.5% OPHTHALMIC SOL 5 ML BOTTLE OS SCH (10:51)
[2019-05-26] MEDS: BRIMONIDINE TARTRATE 0.2% OPHTHALMIC 5 ML BOTTLE OS SCH (10:51)
[2019-05-26] MEDS: CEFTRIAXONE 1 GM in DEXTROSE 5%-WATER - 50 ML IVPB SCH (10:51)
[2019-05-26] MEDS: BACITRACIN 0.9 GM PACKET TP SCH (10:51)
[2019-05-26] MEDS: GABAPENTIN 300 MG CAPSULE PO SCH (10:51)
[2019-05-26] MEDS: METOLAZONE 2.5 MG TABLET (FP) PO SCH (10:52)
[2019-05-26] MEDS ORDERED: DEXTROSE 5%-WATER - 50 ML IVPB ONE (13:21)
[2019-05-26] MEDS ORDERED: cefTRIAXone SODIUM 1 GM VIAL ONE (13:21)
[2019-05-26 15:23] VITALS: BP 104/52; TEMP 97.6
--- NOTE | 2019-05-26 16:18 | PN ---
Teaching Attending Note Name of Resident: Kat Francisco ATTENDING PHYSICIAN STATEMENT I saw and evaluated the patient. I reviewed the resident's note and discussed the case with the resident. I agree with the resident's findings and plan as documented. SUBJECTIVE: Patient is comfortable with no acute distress, no shortness of breath, no nausea or vomiting. No fever or chills Vital Signs Temperature 97.6 F 05/26/19 15:21 Pulse Rate 60 05/26/19 15:21 Respiratory Rate 18 05/26/19 15:21 Blood Pressure 104/52 L 05/26/19 15:21 O2 Sat by Pulse Oximetry (%) 99 05/26/19 09:00 GENERAL: The patient is awake, alert, and fully oriented, in no acute distress. HEAD: Normal with no signs of trauma. EYES: Right eye blindness , extraocular movements intact, sclera anicteric, conjunctiva clear. ENT: Ears normal, oropharynx clear without exudates, moist mucous membranes. NECK: Trachea midline, full range of motion, supple. LUNGS: Breath sounds equal, clear to auscultation bilaterally, no wheezes, no crackles, no accessory muscle use. HEART: Regular rate and rhythm, S1, S2 without murmur, rub or gallop. ABDOMEN: Soft, NT,ND, normoactive bowel sounds, no guarding, no rebound, no hepatosplenomegaly, no masses. EXTREMITIES: 2+ pulses, warm, well-perfused, no edema. NEUROLOGICAL: Cranial nerves II through XII grossly intact. Normal speech, gait not observed. PSYCH: Normal mood, normal affect. SKIN: Warm, dry, normal turgor, no rashes or lesions noted CBCD WBC 8.0 K/mm3 (4.0-10.0) 05/25/19 08:10 RBC 4.09 M/mm3 (4.00-5.60) 05/25/19 08:10 Hgb 13.1 GM/dL (11.7-16.9) 05/25/19 08:10 Hct 39.1 % (35.4-49) 05/25/19 08:10 MCV 95.5 fl (80-96) 05/25/19 08:10 MCHC 33.5 g/dl (32.0-35.9) 05/25/19 08:10 RDW 14.3 % (11.9-15.9) 05/25/19 08:10 Plt Count 180 K/MM3 (134-434) 05/25/19 08:10 MPV 10.3 fl (7.5-11.1) D 05/25/19 08:10 CMP Sodium 142 mmol/L (136-145) 05/26/19 06:18 Potassium 4.2 mmol/L (3.5-5.1) 05/26/19 06:18 Chloride 112 mmol/L (98-107) H 05/26/19 06:18 Carbon Dioxide 23 mmol/L (21-32) 05/26/19 06:18 Anion Gap 7 MMOL/L (8-16) L 05/26/19 06:18 BUN 27.6 mg/dL (7-18) H 05/26/19 06:18 Creatinine 1.8 mg/dL (0.55-1.3) H 05/26/19 06:18 Random Glucose 99 mg/dL (74-106) 05/26/19 06:18 Calcium 8.1 mg/dL (8.5-10.1) L 05/26/19 06:18 Total Bilirubin 1.0 mg/dL (0.2-1) 05/25/19 08:10 AST 23 U/L (15-37) 05/25/19 08:10 ALT 20 U/L (13-61) 05/25/19 08:10 Alkaline Phosphatase 72 U/L (45-117) 05/25/19 08:10 Total Protein 6.6 g/dl (6.4-8.2) 05/25/19 08:10 Albumin 3.2 g/dl (3.4-5.0) L 05/25/19 08:10 CARDIAC ENZYMES Creatine Kinase 49 U/L (26-308) 05/23/19 20:17 Troponin I 0.08 ng/ml (0.00-0.05) H 05/23/19 20:17 Current Medications Generic Name Dose Route Start Last Admin Trade Name Freq PRN Reason Stop Dose Admin Apixaban 2.5 mg 05/24/19 10:00 05/26/19 10:50 Eliquis - PO 2.5 mg BID [facility]NA Administration Bacitracin 0.9 gm 05/24/19 10:00 05/26/19 10:51 Bacitracin - TP 0.9 gm DAILY [facility] Administration Brimonidine Tartrate 1 drop 05/24/19 10:00 05/26/19 10:51 Alphagan 0.2% - OS 1 drp BID [facility]NA Administration Donepezil HCl 5 mg 05/24/19 22:00 05/25/19 21:37 Aricept - PO 5 mg HS [facility]NA Administration Dorzolamide HCl 1 drop 05/24/19 06:00 05/26/19 13:38 Trusopt 2% OD 1 drop TID [facility]NA Administration Duloxetine HCl 30 mg 05/24/19 10:00 05/26/19 10:50 Cymbalta - PO 30 mg DAILY [facility] Administration Gabapentin 300 mg 05/24/19 10:00 05/26/19 10:51 Neurontin - PO 300 mg BID [facility]NA Administration Ceftriaxone Sodium 1 gm/ 50 mls @ 100 mls/hr 05/24/19 10:00 05/26/19 10:51 Dextrose IVPB 100 mls/hr DAILY [facility] Administration Protocol Insulin Aspart 1 vial 05/24/19 07:00 05/26/19 11:14 Novolog Vial Sliding Scale - SQ Not Given ACHS [facility] Protocol Isosorbide Mononitrate 30 mg 05/24/19 10:00 05/26/19 10:51 Imdur - PO 30 mg DAILY [facility] Administration Latanoprost 1 drop 05/24/19 22:00 05/25/19 21:38 Xalatan 0.005% Eye Drops - OU 1 drop HS [facility] Administration Memantine 10 mg 05/24/19 22:00 05/25/19 21:37 Namenda - PO 10 mg HS [facility] Administration Metolazone 2.5 mg 05/24/19 10:00 05/26/19 10:52 Zaroxolyn - PO 2.5 mg DAILY [facility] Administration Metoprolol Tartrate 25 mg 05/24/19 10:00 05/26/19 10:50 Lopressor - PO 25 mg BID [facility] Administration Ranolazine 500 mg 05/24/19 10:00 05/26/19 10:50 Ranexa - PO 500 mg BID [facility] Administration Spironolactone 12.5 mg 05/24/19 10:00 05/26/19 10:50 Aldactone - PO 12.5 mg DAILY [facility]NA Administration Tamsulosin HCl 0.4 mg 05/24/19 08:30 05/26/19 10:50 Flomax - PO 0.4 mg DAILY@0830 [facility] Administration Timolol Maleate 1 drop 05/24/19 10:00 05/26/19 10:51 Timoptic 0.5% OS 1 drp BID [facility]NA Administration Home Medications Medication Instructions Recorded Apixaban [Eliquis -] 2.5 mg PO BID 12/09/15 Ranolazine [Ranexa] 500 mg PO BID 12/09/15 Tamsulosin HCl 0.4 mg PO HS 12/09/15 Isosorbide Mononitrate [Imdur -] 30 mg PO DAILY #30 tab.sr.24h 12/31/15 Gabapentin [Neurontin] 300 mg PO BID 02/24/16 Dorzolamide HCl [Trusopt 2% -] 1 drop OD TID 05/30/16 Donepezil HCl [Aricept -] 5 mg PO HS tablet 07/20/16 Memantine HCl [Namenda -] 10 mg PO HS tablet 07/20/16 Latanoprost 0.005% Eye Drops 1 drop OP HS 05/13/17 [Xalatan 0.005% Eye Drops -] Acetaminophen [Tylenol .Regular 650 mg PO Q4H PRN tablet 05/16/17 Strength -] Combigan 0.2%-0.5% Eye Drops 1 drop OS BID 05/23/19 Duloxetine HCl [Cymbalta -] 30 mg PO DAILY 05/23/19 Glipizide [Glipizide ER] 5 mg PO DAILY 05/23/19 Metolazone [Zaroxolyn -] 2.5 mg PO DAILY 05/23/19 Metoprolol Tartrate [Lopressor -] 25 mg PO BID 05/23/19 Nitrostat - 05/23/19 Spironolactone [Aldactone] 12.5 mg PO 05/23/19 Donepezil HCl 10 mg PO DAILY 05/26/19 Lactobacillus Acidophilus 1 each PO DAILY #30 capsule 05/26/19 [Probiotic] Levofloxacin [Levaquin] 250 mg PO DAILY 10 Days #10 tablet 05/26/19 Spironolactone 25 mg PO DAILY 05/26/19 Microbiology 05/23/19 21:28 Urine - Urine Clean Catch Urine Culture - Final Proteus Mirabilis 05/23/19 21:25 Blood - Peripheral Venous Blood Culture - Preliminary NO GROWTH OBTAINED AFTER 48 HOURS, INCUBATION TO CONTINUE FOR 3 DAYS. 05/23/19 20:17 Blood - Peripheral Venous Blood Culture - Preliminary NO GROWTH OBTAINED AFTER 48 HOURS, INCUBATION TO CONTINUE FOR 3 DAYS. 05/25/19 09:00 Stool Clostridioides difficile Antigen - Final 05/25/19 09:00 Stool Clostridioides difficile Toxin Assay - Final Head CT: neg. for acute pathology, shows small chronic bilateral thalamic and left basal ganglia infarcts, moderate periventricular and subcortical chronic microvascular ischemic changes. No definite interval change compared to CT on . CXR shows no acute intra thoracic pathology. EKG shows atrial-ventricular paced rhythm, wide ventricular rhythm, RBBB (not seen on prior EKG 2017), no ST elevation, 60 bpm. Assessment and plan: Pt. is a 78 y.o. M w/ PMHx. of HFpEF, CAD (s/p PPM), HTN, HLD, Hx. of PE, DM, GERD, CVA and BPH presents from [facility] by EMS for altered mental status. #Toxic Metabolic Encephalopathy due to UTI (Proteus Mirabelis) s/p Levaquin 750mg in ED, s/p IV Rocephin , will continue with Levaquin 250mg daily x 10 days with Bacid daily # Acute UTI s/p Ceftriaxone 1gm IV daily will continue with oral levaquin 250mg x 10 days renally dosed #R. Shoulder Pain: XR right shoulder shows no acute fracture or subluxation #Diarrhea: C. Diff Cx. negative, improved #HTN continue home meds #HLD: continue lipitor #Hx. of PE on Eliquis #DM: SS with coverage #GERD #CVA : on Eliquis #HFpEF: on zarozylyn/spironolactone continue #CAD s/p PPM #KAYLEY: creatinine 2.1-->1.9 today will continue to monitor #Glaucoma Hx continue home meds. DVT Ppx: Eliquis 2.5mg BID
--- NOTE | 2019-05-26 16:25 | DS ---
Physical Exam: SUBJECTIVE: Patient seen and examined at bedside. pt has no acute complaints. OBJECTIVE: Vital Signs Period Temp Pulse Resp BP Sys/Muñoz Pulse Ox Last 24 Hr 97.6 F-98.2 F 60-62 18-19 104-130/52-61 99-100 PHYSICAL EXAM GENERAL: The patient is awake, alert, and fully oriented, in no acute distress. HEAD: Normal with no signs of trauma. LUNGS: Breath sounds equal, clear to auscultation bilaterally, no accessory muscle use. HEART: Regular rate and rhythm, S1, S2 ABDOMEN: Soft, nontender, nondistended, normoactive bowel sounds, no guarding, no rebound EXTREMITIES: 2+ pulses, warm, well-perfused, no edema. SKIN: Warm, dry, normal turgor, no rashes or lesions noted. LABS Laboratory Results - last 24 hr 05/25/19 05/26/19 05/26/19 21:46 06:18 06:28 Sodium 142 Potassium 4.2 Chloride 112 H Carbon Dioxide 23 Anion Gap 7 L BUN 27.6 H Creatinine 1.8 H Est GFR (CKD-EPI)AfAm 41.16 Est GFR (CKD-EPI)NonAf 35.51 POC Glucometer 138 103 Random Glucose 99 Calcium 8.1 L Phosphorus 3.5 Magnesium 2.1 HOSPITAL COURSE: Date of Admission:05/23/19 78 yo M w/ PMH of HFpEF, CAD (s/p PPM), HTN, HLD, Hx. of PE, DM, GERD, CVA and BPH presents from [facility] by EMS for altered mental status. Pt was found to have a UTI. UCx was growing Proteus. Pt was treated with Ceftriaxone for 3 days. Pt had a Head CT: neg. for acute pathology, shows small chronic bilateral thalamic and left basal ganglia infarcts, moderate periventricular and subcortical chronic microvascular ischemic changes. No definite interval change compared to CT on 05/13/2017. Pt was evaluated by neuro who recommended to c/w mary yap. Pt was tested for Cdif and tested negative. Pt had An KAYLEY which improved during hospital course. PT was on Eliquis 2.5 for hx of PE. Pt was discharged with instructions to continue Levaquin 250 for 10 days. [facility]. pt should f/u with PMD Date of Discharge: 05/26/19 Minutes to complete discharge: 39 Discharge Summary Problems reviewed: Yes Reason For Visit: UTI,LETHARY,ALT MENTAL STATUS Current Active Problems Acute on chronic systolic CHF (congestive heart failure), NYHA class 3 (Chronic) BPH (benign prostatic hyperplasia) (Chronic) CAD (coronary artery disease) (Chronic) CHF (congestive heart failure) (Chronic) Dementia (Chronic) Diabetes mellitus type 2 in nonobese (Chronic) GERD (gastroesophageal reflux disease) (Chronic) Glaucoma (Chronic) HLD (hyperlipidemia) (Chronic) HTN (hypertension) (Chronic) History of permanent cardiac pacemaker placement (Chronic) History of stroke (Chronic) Shoulder pain, right (Chronic) Condition: Improved - Instructions Diet, Activity, Other Instructions: You came into the hospital for an infection in your urine. You were treated with IV antibiotics. You had a CT of your head showing that you had some chronic changes of your brain. Please continue your home medications as prescribed Please continue to take Aricept 5 mg every night Please take Levaquin 250 mg daily for 10 days. Please take probiotics daily. Please follow up with your primary care physician in 1 week to monitor your improvement If you have any new, worsening, or concerning symptoms please return to the ED or call 911. Referrals: Luis Jones MD [Staff Physician] - 1 Week Disposition: RETIREMENT FACILITY - Home Medications Comprehensive Discharge Medication List: Ambulatory Orders Apixaban [Eliquis -] 2.5 mg PO BID 12/09/15 Ranolazine [Ranexa] 500 mg PO BID 12/09/15 Tamsulosin HCl 0.4 mg PO HS 12/09/15 Isosorbide Mononitrate [Imdur -] 30 mg PO DAILY #30 tab.sr.24h 12/31/15 Gabapentin [Neurontin] 300 mg PO BID 02/24/16 Dorzolamide HCl [Trusopt 2% -] 1 drop OD TID 05/30/16 Donepezil HCl [Aricept -] 5 mg PO HS tablet 07/20/16 Memantine HCl [Namenda -] 10 mg PO HS tablet 07/20/16 Latanoprost 0.005% Eye Drops [Xalatan 0.005% Eye Drops -] 1 drop OP HS 05/13/17 Acetaminophen [Tylenol .Regular Strength -] 650 mg PO Q4H PRN tablet 05/16/17 Combigan 0.2%-0.5% Eye Drops 1 drop OS BID 05/23/19 Duloxetine HCl [Cymbalta -] 30 mg PO DAILY 05/23/19 Glipizide [Glipizide ER] 5 mg PO DAILY 05/23/19 Metolazone [Zaroxolyn -] 2.5 mg PO DAILY 05/23/19 Metoprolol Tartrate [Lopressor -] 25 mg PO BID 05/23/19 Donepezil HCl 10 mg PO DAILY 05/26/19 Lactobacillus Acidophilus [Probiotic] 1 each PO DAILY #30 capsule 05/26/19 Levofloxacin [Levaquin] 250 mg PO DAILY 10 Days #10 tablet 05/26/19 Spironolactone [Aldactone -] 12.5 mg PO DAILY tablet 05/26/19 This patient is new to me today: No Emergency Visit: No Critical Care patient: No - Discharge Referral Referred to [facility] No ATTENDING PHYSICIAN STATEMENT I saw and evaluated the patient. I reviewed the resident's note and discussed the case with the resident. I agree with the resident's findings and plan as documented. SUBJECTIVE: OBJECTIVE: ASSESSMENT AND PLAN:
== END 2019-05-26 22:50 | DRG 689 ==
LOC: JER 18:40 → JERBED 23:48 → J6S 05-24 02:15
PROVIDERS: ADMIT Internal Medicine; ATTEND Internal Medicine
DX: N39.0 Urinary tract infection, site not specified (principal); G93.41 Metabolic encephalopathy; E46 Unspecified protein-calorie malnutrition; I24.8 Other forms of acute ischemic heart disease; N17.9 Acute kidney failure, unspecified; I50.32 Chronic diastolic (congestive) heart failure; I42.9 Cardiomyopathy, unspecified; I11.0 Hypertensive heart disease with heart failure; B96.4 Proteus (mirabilis) (morganii) as the cause of diseases classified elsewhere; I25.10 Atherosclerotic heart disease of native coronary artery without angina pectoris; I25.119 Atherosclerotic heart disease of native coronary artery with unspecified angina pectoris; N40.0 Benign prostatic hyperplasia without lower urinary tract symptoms; E78.5 Hyperlipidemia, unspecified; K21.9 Gastro-esophageal reflux disease without esophagitis; F41.8 Other specified anxiety disorders; I45.10 Unspecified right bundle-branch block; R41.82 Altered mental status, unspecified; R19.7 Diarrhea, unspecified; H40.9 Unspecified glaucoma; E11.65 Type 2 diabetes mellitus with hyperglycemia; E88.09 Other disorders of plasma-protein metabolism, not elsewhere classified; G30.9 Alzheimer's disease, unspecified; F02.80 Dementia in other diseases classified elsewhere, unspecified severity, without behavioral disturbance, psychotic disturbance, mood disturbance, and anxiety; Z68.24 Body mass index [BMI] 24.0-24.9, adult; E87.5 Hyperkalemia; M25.511 Pain in right shoulder; Z86.73 Personal history of transient ischemic attack (TIA), and cerebral infarction without residual deficits; Z95.0 Presence of cardiac pacemaker; Z86.711 Personal history of pulmonary embolism
CPT/HCPCS: 36415; 70450-TC; 71045-TC-FY; 73030-TC-RT-FY; 80048; 80053; 80307; 81003; 82550; 82962; 83605; 83735; 84100; 84484; 85025; 85610; 85730; 87040; 87086; 87186; 87324; 87449; 87804; 93005; 93010; 99285-25; J7030